=== PATIENT | male | born 1940 | race Caucasian/White ===

== ENCOUNTER 2019-02-22 11:07 | Inpatient (IN) | payer OTHER ==
--- NOTE | 2019-02-22 11:29 | PDOC ---
History of Present Illness - General Chief Complaint: Wound Stated Complaint: SENT BY PCP / PICC LINE Time Seen by Provider: 02/22/19 11:28 - History of Present Illness Initial Comments: 78yo M with PMH of HTN, DM (last hgA1C>11), afib s/p pacemaker presenting sent by his patient access representative for L. great toe wound. Patient has no acute complaints. He first developed the wound on the bottom of his toe after walking outside without shoes about three or four years ago. No bleeding or drainage. He states "I've been trying to take care of it myself." Has had received PICC line and IV antibiotics previously, but no surgery. Reports shortness of breath which is at its baseline and has been going on for a couple years. Denies fevers, chills, or chest pain. Watch Inspector: Dr. Reid Past History - Past Medical History Allergies/Adverse Reactions: Allergies Allergy/AdvReac Type Severity Reaction Status Date / Time morphine Allergy Verified 02/22/19 11:13 Home Medications: Ambulatory Orders Becaplermin [Regranex] 15 gm TP DAILY #1 gel..gram. 02/13/19 Furosemide [Lasix -] 40 mg PO DAILY 02/13/19 Insulin Glargine,Hum.rec.anlog [Toujeo Solostar] 40 units SCJ HS 02/13/19 Metformin HCl [Glucophage] 500 mg PO DAILY 02/13/19 Metoprolol Succinate [Toprol XL -] 50 mg PO DAILY 02/13/19 Potassium Chloride [K-Dur -] 10 meq PO DAILY 02/13/19 Anemia: No Asthma: No Cancer: No Cardiac Disorders: Yes CVA: No COPD: No CHF: No Dementia: No Diabetes: Yes GI Disorders: Yes Disorders: No HTN: Yes Hypercholesterolemia: No Liver Disease: No Seizures: No Thyroid Disease: No - Surgical History Abdominal Surgery: Yes Appendectomy: Yes Cardiac Surgery: Yes Cholecystectomy: No Lung Surgery: No Neurologic Surgery: No Orthopedic Surgery: Yes - Suicide/Smoking/Psychosocial Hx Smoking Status: No Smoking History: Unknown if ever smoked Number of Cigarettes Smoked Daily: 0 Hx Alcohol Use: No Drug/Substance Use Hx: No Substance Use Type: None Hx Substance Use Treatment: No Review of Systems - Review of Systems Comments:: Constitutional: no fever, no chills HEENT: no throat pain, no dysphagia Cardiovascular: no chest pain, no palpitations Respiratory: no cough, +shortness of breath Gastrointestinal: no abdominal pain, no nausea Genitourinary: no dysuria, no frequency Musculoskeletal: no myalgia, no arthralgia Skin: +L. great toe wound, no itching Neurologic: no headache, no weakness *Physical Exam - Vital Signs Last Vital Signs Temp Pulse Resp BP Pulse Ox 98.3 F 68 20 152/84 97 02/22/19 11:16 02/22/19 11:16 02/22/19 11:16 02/22/19 11:16 02/22/19 11:16 - Physical Exam Comments: General: Awake, alert, and fully oriented, in no acute distress Head: No signs of trauma Eyes: EOMI, sclera anicteric ENT: Moist mucus membranes Neck: Normal ROM, supple Lungs: Lungs clear, Normal breath sounds Cardio: Regular rhythm, S1 and S2 present Abdomen: Soft, nontender. No guarding, no rebound, no masses Extremities: Normal range of motion, Distal pulses present, surgical scars present over bilateral knees SKIN: Warm, Dry, normal turgor L. toe lesion: 1.8x1.5cm ulcer on bottom of left great toe without drainage or bleeding; no surrounding fluctuance, erythema, or induration Neurologic: Cranial nerves II through XII grossly intact. Normal speech ED Treatment Course - LABORATORY CBC & Chemistry Diagram: 02/22/19 12:42 02/22/19 12:42 Medical Decision Making - Medical Decision Making 78yo M with PMH of HTN, DM (last hgA1C>11), afib s/p pacemaker presenting sent by his patient access representative for L. great toe wound. Labs, EKG, CXR Radiographs of bilateral feet and L. ankle corresponding with areas of delayed uptake on bone scan Vanz/Zosyn for MRSA and pseudomonal coverage 02/18/19 bone scan: "Multifocal moderate to intense blood pool and intense delayed uptake in the region of the right fifth metatarsal bone, distal tip of the left first toe, left cuboid bone and left lateral malleolus suspicious for osteomyelitis in the right clinical setting. Correlate with patient's symptoms and dedicated x-rays. " 02/22/19 13:34 EKG: rate 105, QTc 481, Afib 02/22/19 15:07 CBC WBC 7.1 K/mm3 (4.0-10.0) 02/22/19 12:42 RBC 6.00 M/mm3 (4.00-5.60) H 02/22/19 12:42 Hgb 17.2 GM/dL (11.7-16.9) H 02/22/19 12:42 Hct 53.5 % (35.4-49) H 02/22/19 12:42 MCV 89.3 fl (80-96) 02/22/19 12:42 MCH 28.6 pg (25.7-33.7) 02/22/19 12:42 MCHC 32.1 g/dl (32.0-35.9) 02/22/19 12:42 RDW 14.9 % (11.9-15.9) 02/22/19 12:42 Plt Count 245 K/MM3 (134-434) D 02/22/19 12:42 MPV 8.0 fl (7.5-11.1) 02/22/19 12:42 Absolute Neuts (auto) 5.2 K/mm3 (1.5-8.0) 02/22/19 12:42 Neutrophils % 72.5 % (42.8-82.8) 02/22/19 12:42 Lymphocytes % 14.3 % (8-40) 02/22/19 12:42 Monocytes % 9.6 % (3.8-10.2) 02/22/19 12:42 Eosinophils % 2.8 % (0-4.5) 02/22/19 12:42 Basophils % 0.8 % (0-2.0) 02/22/19 12:42 Nucleated RBC % 0 % (0-0) 02/22/19 12:42 ESR 13 mm/hr (0-20) 02/22/19 12:42 No leukocytosis Hgb is elevated ESR nl CMP Sodium 136 mmol/L (136-145) 02/22/19 12:42 Potassium 3.7 mmol/L (3.5-5.1) 02/22/19 12:42 Chloride 100 mmol/L (98-107) 02/22/19 12:42 Carbon Dioxide 26 mmol/L (21-32) 02/22/19 12:42 Anion Gap 9 MMOL/L (8-16) 02/22/19 12:42 BUN 25 mg/dL (7-18) H 02/22/19 12:42 Creatinine 1.5 mg/dL (0.55-1.3) H 02/22/19 12:42 Est GFR (CKD-EPI)AfAm 51.31 02/22/19 12:42 Est GFR (CKD-EPI)NonAf 44.27 02/22/19 12:42 Random Glucose 220 mg/dL (74-106) H 02/22/19 12:42 Calcium 8.8 mg/dL (8.5-10.1) 02/22/19 12:42 Total Bilirubin 0.7 mg/dL (0.2-1) 02/22/19 12:42 AST 33 U/L (15-37) 02/22/19 12:42 ALT 42 U/L (13-61) 02/22/19 12:42 Alkaline Phosphatase 131 U/L (45-117) H 02/22/19 12:42 C-Reactive Protein 0.6 MG/DL (0.00-0.3) H 02/22/19 12:42 Total Protein 8.3 g/dl (6.4-8.2) H 02/22/19 12:42 Albumin 3.3 g/dl (3.4-5.0) L 02/22/19 12:42 Elevated BUN and Cr CRP elevated CXR: "A single apical lordotic view reveals a large heart, unfolded aorta, pacemaker, sternal sutures and valve replacement. The lungs are clear. The angles are sharp. The soft tissues are intact. An acute process is not seen. Since 01/29/2012 there is a slightly larger heart. Correlation recommended. " L. Foot/ankle: "The ankle reveals swelling, arthritic changes but no sign of fracture or subluxation no sign of blastic or lytic changes. There may be an old posttraumatic change by the lateral aspect of the distal tibial shaft. 3 views of the left foot reveal osteoarthritic changes with bunion formation by the first MTP joint and other arthritic changes in the toes. There is suggestion of an old fracture deformity of fifth metatarsal with periosteal focal thickening. Blastic or lytic changes are not seen. There is minimal calcaneal spurring. Swelling, foreign body or soft tissue is not appreciated. If symptoms persist or mortise still concerned about osteomyelitis, a 3-phase bone scan or MR may be of help. " R. Foot: "3 views of the right foot reveal extensive osteoarthritic changes with bunion formation by the first MTP joint and angulated first, second and third toes. There are other arthritic changes. Calcaneal spurring is minimal. Blastic or lytic changes are not seen involving the fifth metatarsal. In one view, there may be some cystic changes at the base of the third and fourth metatarsals. There is no sign of swelling, foreign body or soft tissue air. If one is concerned about osteomyelitis, three-phase bone scan or MR may help " Discussed case with Dr. Johnson who accepted patient for admission under Dr. Rincon 02/22/19 15:32 *DC/Admit/Observation/Transfer Diagnosis at time of Disposition: Diabetic foot ulcer Qualifiers: Diabetic foot ulcer location: toe Diabetes mellitus type: type 2 Laterality: left - Discharge Dispostion Condition at time of disposition: Guarded Decision to Admit order: Yes - Referrals - Patient Instructions - Post Discharge Activity
[2019-02-22] MEDS ORDERED: VANCOMYCIN 1,000 MG in DEXTROSE 5%-WATER - 250 ML IVPB ONE (12:23)
[2019-02-22] MEDS ORDERED: PIPERACILLIN/TAZOB 4.5 GM 4.5 GM in DEXTROSE 5%-WATER 100 ML IVPB ONE (12:23)
[2019-02-22] MEDS ORDERED: VANCOMYCIN 1 GRAM (PRE-DOCKED) 1,000 MG/250 ML BAG IVPB ONE ×2 (12:53)
[2019-02-22] MEDS ORDERED: PIPERACILLIN/TAZOB 4.5 GM 4.5 GM/100 ML BAG IVPB ONE (12:53)
[2019-02-22 12:59] LABS: BASO % 0.8 % (0-2.0); EOS % 2.8 % (0-4.5); HEMATOCRIT 53.5 % (35.4-49); HEMOGLOBIN 17.2 GM/dL (11.7-16.9); LYMPH % 14.3 % (8-40); MCH 28.6 pg (25.7-33.7); MCHC 32.1 g/dl (32.0-35.9); MEAN CELL VOLUME 89.3 fl (80-96); MONO % 9.6 % (3.8-10.2); NEUT % 72.5 % (42.8-82.8); PLATELET COUNT 245 K/MM3 (134-434); RDW 14.9 % (11.9-15.9); WHITE BLOOD COUNT 7.1 K/mm3 (4.0-10.0)
[2019-02-22 13:13] LABS: INR 1.07 (0.83-1.09); PROTHROMBIN TIME (PATIENT) 12.6 SEC (9.7-13.0)
--- NOTE | 2019-02-22 13:14 | PDOC ---
Documentation entered by Miryam Mayberry SCRIBE, acting as scribe for Amelia Schafer MD. Amelia Schafer MD: This documentation has been prepared by the christoferibe, Miryam Mayberry SCRIBE, under my direction and personally reviewed by me in its entirety. I confirm that the documentation accurately reflects all work, treatment, procedures, and medical decision making performed by me. Attending Attestation - Resident Resident Name: Amelia Phelan - ED Attending Attestation I have performed the following: I have examined & evaluated the patient, The case was reviewed & discussed with the resident, I agree w/resident's findings & plan, Exceptions are as noted - HPI HPI: 02/22/19 12:48 The patient is a 78-year-old male with a past medical history significant for HTN, and DM was sent to the emergency department by Dr. Reid for evaluation for left great toe wound. The patient reports about 3 years ago, he stepped outside without his shoes, at where he sustained a wound to his great toe. The patient reports he didnt follow up till about 2 weeks ago, was seen at PCPs officer, who referred the patient to Dr. Reid office. The patient was seen at Dr. Hung office recently. The patient had a bone scan done on 02/18, which was significant for delayed reuptake. The patient was seen at Dr. Hung officer again 02/21, where he was instructed to follow up at the ER for IV abx and PICC line. The patients hgba1c was noted to be 11.9. Denies pustulant draining. The patient reports an additional concern of shortness of breath thats chronic in nature. Denies chest pain or worsening shortness of breath. Allergies: morphine Surgical history: The patient has a history of abdominal surgery, Cardiac surgery, orthopedic surgery an appendectomy. Social history: No alcohol or recreational drug use reported. - Physicial Exam PE: GENERAL: Awake, alert, and fully oriented, in no acute distress HEAD: No signs of trauma EYES: PERRLA, EOMI, sclera anicteric, conjunctiva clear ENT: Auricles normal inspection, hearing grossly normal, nares patent, oropharynx clear without exudates. Moist mucosa NECK: Normal ROM, supple, no lymphadenopathy, JVD, or masses LUNGS: Breath sounds equal, clear to auscultation bilaterally. No wheezes, and no crackles HEART: Regular rate and rhythm, normal S1 and S2, no murmurs, rubs or gallops ABDOMEN: Soft, nontender, normoactive bowel sounds. No guarding, no rebound. No masses EXTREMITIES: L great toe with 1.8cm x 1.5cm open wound, no active drainage, surrounded with devitalized tissue. Remainder of extremities with normal range of motion, no edema. No clubbing or cyanosis. No cords, erythema, or tenderness NEUROLOGICAL: Cranial nerves II through XII grossly intact. Normal speech, normal gait. Motor and sensation intact SKIN: Warm, Dry, normal turgor, no rashes or lesions noted. - Medical Decision Making Pt with DFU to the L great toe, will require IV abx for osteo as per notes from Dr. Reid. Will start yuliet and jeremy in ED.
[2019-02-22 13:18] LABS: ALBUMIN 3.3 g/dl (3.4-5.0); BILIRUBIN,TOTAL 0.7 mg/dL (0.2-1); CALCIUM 8.8 mg/dL (8.5-10.1); CREATININE 1.5 mg/dL (0.55-1.3); POTASSIUM 3.7 mmol/L (3.5-5.1); TOT PROT 8.3 g/dl (6.4-8.2)
[2019-02-22] MEDS ORDERED: amLODIPine BESYLATE 5 MG TABLET (FP) PO ONE (17:02)
[2019-02-22] MEDS ORDERED: amLODIPine BESYLATE 5 MG TABLET (FP) ONE (17:08)
--- NOTE | 2019-02-22 17:09 | HP ---
CHIEF COMPLAINT: diabetic foot ulcer with osteo of left great toe PCP:dr ken HISTORY OF PRESENT ILLNESS: 78yo M with PMH of HTN, DM (last hgA1C 8.4), afib s/ p pacemaker presenting sent by his tunnel elastic operator zigzag for L. great toe wound. Patient has no acute complaints. He first developed the wound on the bottom of his toe after walking outside without shoes about three or four years ago and got iV antibiotics through pic line after that( placed in [facility]). Initially his wound got healed but it opened up again about 1 year ago and he didnt tell anyone and started taking care of it by himself. Denies bleeding or drainage. Denies shortness of breath, chest pain, palpitations, nausea, vomiting, lightheadedness, dizziness ER course was notable for: (1)cbc, cmp, crp esr (2) (3) Recent Travel: no PAST MEDICAL HISTORY: as above PAST SURGICAL HISTORY: ? CABG, pacemaker, valve replacement, laparotomy, ventral hernia repair, removal of mesh because of infection , appendectomy, b/l knee replacement Social History: Smoking: occasionally but quit 30 year ago Alcohol:no Drugs: no Family History: not relevant Allergies morphine Allergy (Verified 02/22/19 11:13) HOME MEDICATIONS: Home Medications Medication Instructions Recorded Becaplermin [Regranex] 15 gm TP DAILY #1 gel..gram. 02/13/19 Furosemide [Lasix -] 40 mg PO DAILY 02/13/19 Insulin Glargine,Hum.rec.anlog 40 units [facility] 02/13/19 [Josep Goode] Metformin HCl [Glucophage] 500 mg PO DAILY 02/13/19 Metoprolol Succinate [Toprol XL -] 50 mg PO DAILY 02/13/19 Potassium Chloride [K-Dur -] 10 meq PO DAILY 02/13/19 REVIEW OF SYSTEMS CONSTITUTIONAL: Absent: fever, chills, diaphoresis, generalized weakness, malaise, loss of appetite, weight change HEENT: Absent: rhinorrhea, nasal congestion, throat pain, throat swelling, difficulty swallowing, mouth swelling, ear pain, eye pain, visual changes CARDIOVASCULAR: Absent: chest pain, syncope, palpitations, irregular heart rate, lightheadedness , peripheral edema RESPIRATORY: Absent: cough, shortness of breath, dyspnea with exertion, orthopnea, wheezing, stridor, hemoptysis GASTROINTESTINAL: Absent: abdominal pain, abdominal distension, nausea, vomiting, diarrhea, constipation, melena, hematochezia GENITOURINARY: Absent: dysuria, frequency, urgency, hesitancy, hematuria, flank pain, genital pain MUSCULOSKELETAL: Absent: myalgia, arthralgia, joint swelling, back pain, neck pain SKIN: Absent: rash, itching, pallor HEMATOLOGIC/IMMUNOLOGIC: Absent: easy bleeding, easy bruising, lymphadenopathy, frequent infections ENDOCRINE: Absent: unexplained weight gain, unexplained weight loss, heat intolerance, cold intolerance NEUROLOGIC: Absent: headache, focal weakness or paresthesias, dizziness, unsteady gait, seizure, mental status changes, bladder or bowel incontinence PSYCHIATRIC: Absent: anxiety, depression, suicidal or homicidal ideation, hallucinations. PHYSICAL EXAMINATION Vital Signs - 24 hr 02/22/19 02/22/19 02/22/19 11:16 16:11 16:45 Temperature 98.3 F Pulse Rate 68 Pulse Rate [ 74 Radial] Respiratory 20 18 Rate Blood Pressure 152/84 Blood Pressure 150/107 H [Left Arm] Blood Pressure 150/127 H [Right Arm] O2 Sat by Pulse 97 96 Oximetry (%) GENERAL: Awake, alert, and fully oriented, in no acute distress. HEAD: Normal with no signs of trauma. EYES: Pupils equal, round and reactive to light, extraocular movements intact, EARS, NOSE, THROAT: Ears normal, nares patent, oropharynx clear without exudates. Moist mucous membranes. NECK: Normal range of motion, supple without lymphadenopathy, JVD, or masses. LUNGS: Breath sounds equal, clear to auscultation bilaterally. No wheezes, and no crackles. No accessory muscle use. mid line scar HEART: Regular rate and rhythm, normal S1 and S2 ABDOMEN: Soft, nontender, not distended, normoactive bowel sounds, no guarding, no rebound, no masses. midline scar MUSCULOSKELETAL: Normal range of motion at all joints. No bony deformities or tenderness. No CVA tenderness. UPPER EXTREMITIES: 2+ pulses, warm, well-perfused. No cyanosis. No clubbing. No peripheral edema. LOWER EXTREMITIES: 2+ pulses, warm, well-perfused. No calf tenderness. discoloration from b/l varicose vein NEUROLOGICAL: Cranial nerves II-XII intact. Normal speech. Normal gait. PSYCHIATRIC: Cooperative. Good eye contact. SKIN: Warm, dry, Laboratory Results - last 24 hr 02/22/19 02/22/19 02/22/19 12:30 12:42 12:42 WBC 7.1 RBC 6.00 H Hgb 17.2 H Hct 53.5 H MCV 89.3 MCH 28.6 MCHC 32.1 RDW 14.9 Plt Count 245 D MPV 8.0 Absolute Neuts (auto) 5.2 Neutrophils % 72.5 Lymphocytes % 14.3 Monocytes % 9.6 Eosinophils % 2.8 Basophils % 0.8 Nucleated RBC % 0 ESR PT with INR 12.60 INR 1.07 PTT (Actin FS) 36.0 Sodium 136 Potassium 3.7 Chloride 100 Carbon Dioxide 26 Anion Gap 9 BUN 25 H Creatinine 1.5 H Est GFR (CKD-EPI)AfAm 51.31 Est GFR (CKD-EPI)NonAf 44.27 Random Glucose 220 H Calcium 8.8 Total Bilirubin 0.7 AST 33 ALT 42 Alkaline Phosphatase 131 H C-Reactive Protein Total Protein 8.3 H Albumin 3.3 L 02/22/19 02/22/19 12:42 12:42 WBC RBC Hgb Hct MCV MCH MCHC RDW Plt Count MPV Absolute Neuts (auto) Neutrophils % Lymphocytes % Monocytes % Eosinophils % Basophils % Nucleated RBC % ESR 13 PT with INR INR PTT (Actin FS) Sodium Potassium Chloride Carbon Dioxide Anion Gap BUN Creatinine Est GFR (CKD-EPI)AfAm Est GFR (CKD-EPI)NonAf Random Glucose Calcium Total Bilirubin AST ALT Alkaline Phosphatase C-Reactive Protein 0.6 H Total Protein Albumin ASSESSMENT/PLAN: Osteomyelitis of left great toe bone scan reviewed podiatry consult iD consult crp, esr reviewed zosyn and vanco daily dressing DM continue glargine 40 unit am add novolog sliding scale bgm achs diabetic diet hba1c 8.4 from 02/13/19 HTN continue toprol xl 50 daily given amlodipine 5 mg today for elevated bp if cr remain stable tomorrow we will add katie inhibitor and stop amlodipine ckd vs darlene likely ckd from dm monitor cr avoid nephrotoxic drugs afib s/p pacemaker s/p valve replacement ? cabg rate control with toprol xl 50 we will start him on aspirin once the plan is finalized about bone biopsy. Called dr dominguez [phone]. voicemail left pt list of medicines need to be confirmed. Er called [facility] and as per them he gets mail order. Pt dosent remeber the name or phone number of pharmacy for mail order. I also talked to his son and he is also not aware of it. Pt will ask his son to bring his meds from home fluid: orally allowed electrolyte: repeat in am nutrition diabetic diet dvt pro: heparin sq dispo: med surg Visit type - Emergency Visit Emergency Visit: Yes ED Registration Date: 02/22/19 Care time: The patient presented to the Emergency Department on the above date and was hospitalized for further evaluation of their emergent condition. - New Patient This patient is new to me today: Yes Date on this admission: 02/23/19 - Critical Care Critical Care patient: No
--- NOTE | 2019-02-22 17:15 | PN ---
Teaching Attending Note Name of Resident: Chris Johnson ATTENDING PHYSICIAN STATEMENT I saw and evaluated the patient. I reviewed the resident's note and discussed the case with the resident. I agree with the resident's findings and plan as documented. SUBJECTIVE: CC: sent by crushing mill operator, dr. Reid for L big toe OM . HPI: Dawit 78 y/o man with h/o DM, HTN, Chronic wound on L big toe, Abd hernia repair, b/l Knee replacement, appendectomy, Afib, and valve replacement, ? CABG who presented with after being referred by Photogrammetric Surveyor for treatment of OM. He has a chronic wound in his L big toe which healed after IV abx through PICC ( ? OM) 4 years ago. then a year ago, wound developed agian. he denies any fever or chills. no painin legs or purulent discharge. On 02/[address] Reid's office and had a debridment of the wound with culture growing 5 organisms ( including proteus, MSSA, and E . Faecalis ). He also got a bone scan on 02/18 which showed multifocal delayed euptake ( R fifth metatarsal, tip of L first toe, L cuboid bone, and L Lateral malleolus). In ER: he was given VAnco and zosyn. OBJECTIVE: NAD, pleasant , cooperative HEENT: EOMI, round equal pupils, reactive to light. no facial droop. MMM. CV: RRR, no MRG Lungs: CTAB Abd: soft, NT, ND , NL BS , mid line surgical scar. obese Ext: No edema. varicose veins on legs with discoloration of skin. R 2nd toe overriding Big toe. L big toe with a round plantar ulcer , about 0.75 cm in diameter, 4 mm in depth , elevated rim with thick whitish surrounding skin. No odor. Neuro: EOMI, round equal pupils, reactive to light. no facial droop. tongue at mid line. Strength 5/5 in upper and lower extremities proximally and distally. ASSESSMENT AND PLAN: Dawit 78 y/o man with h/o DM, HTN, Chronic wound on L big toe, Abd hernia repair, b/l Knee replacement, appendectomy, Afib,s/p PPM ,? CABG and valve replacement who presented with after being referred by Photogrammetric Surveyor for treatment of OM. 1- L big toe infected diabetic foot ulcer with OM : Wound was debrided on 02/13 in office. wound cx reviewed. ESR and CRP reviewed, might not be a good indication of absence of OM. MRI can't be done due to PPM - will confirm with Podiatry if a bone bx is to be done before proceeding with Abx - will consult Id for guidance . - received Vanco and zosyn in ER, which covers all the organisms found in wound cx 2- Uncontrolled HTN: He carroll snot remember his meds. - will give a dose of norvasc - start BB ( olf medication per 2012 records) - will confirm meds ( sone to bring bottles ) 3- Possible CKD: unknown base line , but Cr was 1.4 on 02/13 . - will monitor - he takes lasix BID , will give daily for now and assess 4- DM: - cont levemir at home dose 40 Am ( received today ) - SSI - hold po pills 5- Per Chart review: SPEP in 2012 showed M spike for IgG and [place]. Not clear if he followed or got this repeated. - will advise follow up with heme for further w/u 6- Erythrocytosis: unclear etiology. Not a current smoker. No h/o COPD. follow CBC DVT PX: Heparin Sq
[2019-02-22 18:59] VITALS: BMI 34.6
[2019-02-22] MEDS ORDERED: DEXTROSE 5%-WATER 100 ML IVPB ONE (21:07)
[2019-02-22] MEDS ORDERED: PIPERACILLIN/TAZOBACTAM 4.5 GM VIAL IVPB ONE (21:07)
[2019-02-22] MEDS: PIPERACILLIN/TAZOB 4.5 GM 4.5 GM in DEXTROSE 5%-WATER 100 ML IVPB SCH (21:27)
[2019-02-22] MEDS: INSULIN SLIDING SCALE (NOVOLOG) 1 VIAL SQ SCH (21:28)
[2019-02-22] MEDS: HEPARIN NA (PORCINE) 5,000 UNITS/ML 1ML VIAL SQ SCH (21:28)
[2019-02-23] MEDS ORDERED: DEXTROSE 5%-WATER 200 ML IVPB ONE (03:10)
[2019-02-23] MEDS ORDERED: PIPERACILLIN/TAZOBACTAM 4.5 GM VIAL IVPB ONE ×2 (03:10→09:06)
[2019-02-23] MEDS: PIPERACILLIN/TAZOB 4.5 GM 4.5 GM in DEXTROSE 5%-WATER 100 ML IVPB SCH ×4 (03:23→17:21)
[2019-02-23] MEDS: HEPARIN NA (PORCINE) 5,000 UNITS/ML 1ML VIAL SQ SCH ×3 (06:04→21:10)
[2019-02-23] MEDS: INSULIN SLIDING SCALE (NOVOLOG) 1 VIAL SQ SCH ×4 (06:05→21:10)
[2019-02-23] MEDS: INSULIN (LEVEMIR) 100 UNITS/ML UNITS SQ SCH (06:06)
[2019-02-23 06:59] LABS: BASO % 0.6 % (0-2.0); EOS % 4.4 % (0-4.5); HEMATOCRIT 50.9 % (35.4-49); HEMOGLOBIN 16.5 GM/dL (11.7-16.9); LYMPH % 13.9 % (8-40); MCHC 32.5 g/dl (32.0-35.9); MEAN CELL VOLUME 89.3 fl (80-96); MEAN PLT VOLUME 8.1 fl (7.5-11.1); MONO % 11.1 % (3.8-10.2); PLATELET COUNT 216 K/MM3 (134-434); RBC 5.69 M/mm3 (4.00-5.60); RDW 14.8 % (11.9-15.9); WHITE BLOOD COUNT 7.4 K/mm3 (4.0-10.0)
[2019-02-23 07:16] LABS: INR 1.08 (0.83-1.09); PROTHROMBIN TIME (PATIENT) 12.7 SEC (9.7-13.0)
[2019-02-23 07:18] LABS: ALBUMIN 3.2 g/dl (3.4-5.0); BILIRUBIN,TOTAL 1.2 mg/dL (0.2-1); CALCIUM 8.7 mg/dL (8.5-10.1); CREATININE 1.5 mg/dL (0.55-1.3); MAGNESIUM 2.1 mg/dL (1.8-2.4); PHOSPHOROUS 3.8 mg/dL (2.5-4.9); POTASSIUM 3.5 mmol/L (3.5-5.1); TOT PROT 7.8 g/dl (6.4-8.2)
[2019-02-23] MEDS ORDERED: DEXTROSE 5%-WATER 100 ML IVPB ONE (09:06)
[2019-02-23] MEDS: FUROSEMIDE 40 MG TABLET (FP) PO SCH (09:53)
[2019-02-23] MEDS ORDERED: VANCOMYCIN 1 GRAM (PRE-DOCKED) 1,000 MG/250 ML BAG IVPB SCH ×2 (10:00→13:00)
[2019-02-23] MEDS ORDERED: amLODIPine BESYLATE 5 MG TABLET (FP) PO SCH (10:00)
[2019-02-23] MEDS ORDERED: VANCOMYCIN 1 GM in D5W (PRE-DOCKED) 1,000 MG/250 ML IVPB SCH (10:00)
--- NOTE | 2019-02-23 11:10 | CONSULT ---
Consult Consult Specialty:: Podiatry Reason for Consultation:: OM left great toe, poorly controlled diabetes - History Source History Provided By: Patient, Medical Record - Alcohol/Substance Use Hx Alcohol Use: No - Smoking History Smoking history: Unknown if ever smoked Aproximately how many cigarettes per day: 0 Home Medications - Allergies Allergies/Adverse Reactions: Allergies Allergy/AdvReac Type Severity Reaction Status Date / Time morphine Allergy Verified 02/22/19 11:13 - Home Medications Home Medications: Ambulatory Orders Becaplermin [Regranex] 15 gm TP DAILY #1 gel..gram. 02/13/19 Furosemide [Lasix -] 40 mg PO DAILY 02/13/19 Insulin Glargine,Hum.rec.anlog [Toujeo Solostar] 40 units SCJ HS 02/13/19 Metformin HCl [Glucophage] 500 mg PO DAILY 02/13/19 Metoprolol Succinate [Toprol XL -] 50 mg PO DAILY 02/13/19 Potassium Chloride [K-Dur -] 10 meq PO DAILY 02/13/19 Physical Exam Vital Signs: Vital Signs Temperature 97.8 F 02/23/19 09:28 Pulse Rate 97 H 02/23/19 09:28 Respiratory Rate 20 02/23/19 09:28 Blood Pressure 138/91 02/23/19 09:28 O2 Sat by Pulse Oximetry (%) 94 L 02/23/19 09:00 Extremities: Yes: Other (+grade 3 wound left big toe, -drainage, -mal odor, +OM, ) Labs: CBC, BMP 02/23/19 05:30 02/23/19 05:30 Assessment/Plan om left big toe pvd Vascular consult. HBO consult. Patient wants to come to hospital to get his abx. IVABX as per ID. [place] to left foot wound daily. NO tape on skin. Will follow.
--- NOTE | 2019-02-23 11:38 | PN ---
Progress Note (short form) - Note Progress Note: Subjective: No fever or chills . No GARCIA . no pain . ambulating in hallway with no problems Objective: Vital Signs: Last Vital Signs Temp Pulse Resp BP Pulse Ox 97.8 F 97 H 20 138/91 94 L 02/23/19 09:28 02/23/19 09:28 02/23/19 09:28 02/23/19 09:28 02/23/19 09:00 Laboratory Results - last 24 hr 02/22/19 02/22/19 02/22/19 12:30 12:42 12:42 WBC 7.1 RBC 6.00 H Hgb 17.2 H Hct 53.5 H MCV 89.3 MCH 28.6 MCHC 32.1 RDW 14.9 Plt Count 245 D MPV 8.0 Absolute Neuts (auto) 5.2 Neutrophils % 72.5 Lymphocytes % 14.3 Monocytes % 9.6 Eosinophils % 2.8 Basophils % 0.8 Nucleated RBC % 0 ESR PT with INR 12.60 INR 1.07 PTT (Actin FS) 36.0 Sodium 136 Potassium 3.7 Chloride 100 Carbon Dioxide 26 Anion Gap 9 BUN 25 H Creatinine 1.5 H Est GFR (CKD-EPI)AfAm 51.31 Est GFR (CKD-EPI)NonAf 44.27 POC Glucometer Random Glucose 220 H Calcium 8.8 Phosphorus Magnesium Total Bilirubin 0.7 AST 33 ALT 42 Alkaline Phosphatase 131 H C-Reactive Protein Total Protein 8.3 H Albumin 3.3 L 02/22/19 02/22/19 02/22/19 12:42 12:42 21:21 WBC RBC Hgb Hct MCV MCH MCHC RDW Plt Count MPV Absolute Neuts (auto) Neutrophils % Lymphocytes % Monocytes % Eosinophils % Basophils % Nucleated RBC % ESR 13 PT with INR INR PTT (Actin FS) Sodium Potassium Chloride Carbon Dioxide Anion Gap BUN Creatinine Est GFR (CKD-EPI)AfAm Est GFR (CKD-EPI)NonAf POC Glucometer 172 Random Glucose Calcium Phosphorus Magnesium Total Bilirubin AST ALT Alkaline Phosphatase C-Reactive Protein 0.6 H Total Protein Albumin 02/23/19 02/23/19 02/23/19 05:30 05:30 05:30 WBC 7.4 RBC 5.69 H Hgb 16.5 Hct 50.9 H MCV 89.3 MCH 29.0 MCHC 32.5 RDW 14.8 Plt Count 216 MPV 8.1 Absolute Neuts (auto) 5.2 Neutrophils % 70.0 Lymphocytes % 13.9 Monocytes % 11.1 H Eosinophils % 4.4 Basophils % 0.6 Nucleated RBC % 0 ESR PT with INR 12.70 INR 1.08 PTT (Actin FS) Sodium 138 Potassium 3.5 Chloride 101 Carbon Dioxide 29 Anion Gap 8 BUN 24 H Creatinine 1.5 H Est GFR (CKD-EPI)AfAm 51.31 Est GFR (CKD-EPI)NonAf 44.27 POC Glucometer Random Glucose 89 Calcium 8.7 Phosphorus 3.8 Magnesium 2.1 Total Bilirubin 1.2 H AST 35 ALT 39 Alkaline Phosphatase 106 C-Reactive Protein Total Protein 7.8 Albumin 3.2 L 02/23/19 02/23/19 05:59 11:20 WBC RBC Hgb Hct MCV MCH MCHC RDW Plt Count MPV Absolute Neuts (auto) Neutrophils % Lymphocytes % Monocytes % Eosinophils % Basophils % Nucleated RBC % ESR PT with INR INR PTT (Actin FS) Sodium Potassium Chloride Carbon Dioxide Anion Gap BUN Creatinine Est GFR (CKD-EPI)AfAm Est GFR (CKD-EPI)NonAf POC Glucometer 118 180 Random Glucose Calcium Phosphorus Magnesium Total Bilirubin AST ALT Alkaline Phosphatase C-Reactive Protein Total Protein Albumin Physical Exam: NAD, cooperative HEENT: MMM CV: RRR, no MRG Lungs: CTAB Ext: No edema. varicose veins on legs with discoloration of skin. R 2nd toe overriding Big toe. L big toe with a round plantar ulcer, about 0.75 cm in diameter, 4 mm in depth , in the middle of a callus. No odor, no discharge. ASSESSMENT AND PLAN: Pleasant 78 y/o man with h/o DM, HTN, Chronic wound on L big toe, Abd hernia repair, b/l Knee replacement, appendectomy, Afib,s/p PPM ,? CABG and valve replacement who presented with after being referred by Broom Machine Operator for treatment of OM. 1- L big toe infected diabetic foot ulcer with OM : s/p debridment in office . wound cx available - cont vanco and zosyn for now , pending ID consult - d/w Dr. Reid, no bone Bx to be done - will arrange for a PICC line tomorrow for prolonged Abx use - patient wishes to receive his Abx at infusion center - Hyperbaric eval 2- Uncontrolled HTN:meds were confirmed and updated. only on metorpolol at home - cont metoprolol - dc norvasc and add low dose lisinopril. will need BMP in 1 week for renal function and K. - will contact PCP tomorrow , for renal base line and on why ACEI/ARB werenot use ( ? reaction , hyperkalemia) 3- CKD: unknown base line , but Cr was 1.4 on 02/13 . - will monitor - cont home lasix daily 4- DM: - cont levemir at home dose 40 Am - SSI - at DC can resume his metofrmin as his GFR is 44.27 and he was already on it ( [facility] Recs ) 5- SPEP in 2011 showed M spike for IgG and [place]. Not clear if he followed or got this repeated. - will advise follow up with heme for further w/u DVT PX: Heparin Sq Dispo : will plan for PICC and Abx arrangement at Infusion center,pending ID eval . possible dc tomorrow L Visit type - Emergency Visit Emergency Visit: Yes ED Registration Date: 02/22/19 Care time: The patient presented to the Emergency Department on the above date and was hospitalized for further evaluation of their emergent condition. - New Patient This patient is new to me today: No - Critical Care Critical Care patient: No - Discharge Referral Referred to [facility] No
[2019-02-23] MEDS ORDERED: AMPICILLIN NA/SULBACTAM NA 3 GM in SODIUM CHLORIDE 100 ML IVPB SCH (13:30)
--- NOTE | 2019-02-23 13:33 | CON.ID ---
Consult Consult Specialty:: infectious diseses Referred by:: dr roper Reason for Consultation:: osteo of the foot - History of Present Illness Chief Complaint: wound on the left great toe History of Present Illness: 78yo M with PMH of HTN, DM (, afib s/p pacemaker presenting L. great toe wound. Patient has no acute complaints. He first developed the wound on the bottom of his toe after walking outside without shoes about three or four years ago and got iV antibiotics through [facility] Initially his wound got healed but it opened up again about 1 year ago and he didnt tell anyone and started taking care of it by himself. Denies bleeding or drainage. Denies shortness of breath, chest pain, palpitations, nausea, vomiting, lightheadedness, dizziness was worked up on this admission and now has infection with multiple organism as well as osteo - History Source History Provided By: Patient Limitations to Obtaining History: No Limitations - Alcohol/Substance Use Hx Alcohol Use: No - Smoking History Smoking history: Unknown if ever smoked Aproximately how many cigarettes per day: 0 Home Medications - Allergies Allergies/Adverse Reactions: Allergies Allergy/AdvReac Type Severity Reaction Status Date / Time morphine Allergy Verified 02/22/19 11:13 - Home Medications Home Medications: Ambulatory Orders Becaplermin [Regranex] 15 gm TP DAILY #1 gel..gram. 02/13/19 Furosemide [Lasix -] 40 mg PO DAILY 02/13/19 Insulin Glargine,Hum.rec.anlog [Toujeo Solostar] 40 units SCJ HS 02/13/19 Metformin HCl [Glucophage] 500 mg PO DAILY 02/13/19 Metoprolol Succinate [Toprol XL -] 50 mg PO DAILY 02/13/19 Potassium Chloride [K-Dur -] 10 meq PO DAILY 02/13/19 Review of Systems - Review of Systems Constitutional: reports: No Symptoms Eyes: reports: No Symptoms HENT: reports: No Symptoms Neck: reports: No Symptoms Cardiovascular: reports: No Symptoms Respiratory: reports: No Symptoms Gastrointestinal: reports: No Symptoms Genitourinary: reports: No Symptoms Musculoskeletal: reports: No Symptoms Integumentary: reports: Lesions Neurological: reports: No Symptoms Endocrine: reports: No Symptoms Hematology/Lymphatic: reports: No Symptoms Psychiatric: reports: No Symptoms Physical Exam Vital Signs: Vital Signs Temperature 97.6 F 02/23/19 13:16 Pulse Rate 82 02/23/19 13:16 Respiratory Rate 20 02/23/19 13:16 Blood Pressure 143/62 02/23/19 13:16 O2 Sat by Pulse Oximetry (%) 94 L 02/23/19 09:00 Constitutional: Yes: Well Nourished, No Distress, Calm Neck: Yes: Supple, Trachea Midline Cardiovascular: Yes: Regular Rate and Rhythm Respiratory: Yes: Regular, CTA Bilaterally Gastrointestinal: Yes: Normal Bowel Sounds, Soft Musculoskeletal: Yes: Other Extremities: Yes: Other Wound/Incision: Yes: Other (wound non healing of left great toe) Neurological: Yes: Alert, Oriented Psychiatric: Yes: Alert, Oriented Labs: CBC, BMP 02/23/19 05:30 02/23/19 05:30 Imaging - Results Chest X-ray: Report Reviewed, Image Reviewed Other: Report Reviewed, Image Reviewed (nuclear scan seen) Assessment/Plan ASSESSMENT/PLAN: Osteomyelitis of left great toe DM HTN ckd afib plan i am going to start patient on unasyn the problems is this has become chronic if once a day regimen then we will have to to use 2 abx ertapenam and vanco will d/w the team
[2019-02-23] MEDS: COLLAGENASE CLOSTRIDIUM HIST. 30 GRAMS TUBE TP SCH (15:07)
--- NOTE | 2019-02-23 15:14 | EKG ---
Test Reason : Blood Pressure : / mmHG Vent. Rate : 105 BPM Atrial Rate : 117 BPM P-R Int : 000 ms QRS Dur : 086 ms QT Int : 364 ms P-R-T Axes : 000 022 006 degrees QTc Int : 481 ms ATRIAL FIBRILLATION WITH RAPID VENTRICULAR RESPONSE WITH PREMATURE VENTRICULAR OR ABERRANTLY CONDUCTED COMPLEXES NONSPECIFIC T WAVE ABNORMALITY ABNORMAL ECG NO PREVIOUS ECGS AVAILABLE Confirmed by NEFTALI SHOEMAKER MD ([id number]) on 02/23/2019 3:14:12 PM Referred By: Confirmed By:NEFTALI SHOEMAKER MD
[2019-02-23] MEDS ORDERED: PT OWN MED DRAWER 7, Y5N ONE ×2 (16:42→19:00)
[2019-02-23] MEDS: AMPICILLIN NA/SULBACTAM NA 3 GM in SODIUM CHLORIDE 100 ML IVPB SCH (17:04)
[2019-02-24] MEDS ORDERED: PT OWN MED DRAWER 7, Y5N ONE (01:23)
[2019-02-24] MEDS: AMPICILLIN NA/SULBACTAM NA 3 GM in SODIUM CHLORIDE 100 ML IVPB SCH ×2 (01:58→10:27)
[2019-02-24] MEDS: HEPARIN NA (PORCINE) 5,000 UNITS/ML 1ML VIAL SQ SCH (06:51)
[2019-02-24] MEDS: INSULIN (LEVEMIR) 100 UNITS/ML UNITS SQ SCH (06:51)
[2019-02-24] MEDS: INSULIN SLIDING SCALE (NOVOLOG) 1 VIAL SQ SCH ×2 (06:52→12:41)
[2019-02-24] MEDS ORDERED: INSULIN (NOVOLOG) ASPART 100 UNITS/ML 10ML VIAL ONE (07:06)
--- NOTE | 2019-02-24 07:25 | CONSULT ---
- Consultation REQUESTING PROVIDER: Pankaj Barboza CONSULT REQUEST: We have been asked to surgically evaluate this patient for ( specify). PCP: Ines Rincon HPI: Found patient ambulating hallways this morning unassisted. Called to abhijeetkaity 78yo male w/ PMHx as noted below. Comes to [facility] ED for further evaluation of his left great toe wound. Patient states the wound has been there for almost four years. Started after he was walking around barefoot. Initially, had a PICC line and was on IV ABX for six weeks. States it got a little better and closed over time. About one year ago he noticed it started to reoccur. Attempted to care for wound by himself and never sought medical attention. Per notes, patient had a bone scan done on 02/18/19, which was significant for delayed re-uptake. The patient was seen at Dr. Hung office 02/21/19, where he was instructed to follow up at the ER for IV abx and PICC line placement. Denies n/v/f/c, CP, SOB, parasthesisas, numbness or tingling to his LE. PMHx: HTN, DM, Afib, Left foot wound PSHx: ? CABG, Pacemaker, valve replacement, laparotomy, ventral hernia repair, removal of mesh because of infection , appendectomy, b/l knee replacement Home Meds Becaplermin 15 gm topical daily Lasix 40 mg daily Insulin Glargine,Hum.rec.anlog 40 units SQ HS Metformin HCl 500 mg daily Metoprolol Succinate 50 mg daily K-Dur 10 meq daily Allergies: Morphine ROS: All systems reviewed and considered negative except for what's contained in HPI PE: GEN: NAD HEENT: EOMI, PERRL CV: RRR Lungs: CTAB Abd: Obese habitus. Midline surgical scar well healed. Soft, NT, ND Ext: No edema. + Varicose veins, venous stasis changes bilat. R 2nd toe overriding Big toe. L big toe with a round plantar ulcer , about 0.75 cm in diameter, 4 mm in depth, periwound w/ callous skin. No odor or drainage. No signs of infection. + DP & PT bilat Last Vital Signs Temp Pulse Resp BP Pulse Ox 97.8 F 81 20 118/90 96 02/24/19 05:48 02/24/19 05:48 02/24/19 05:48 02/24/19 05:48 02/23/19 21:00 CBC, BMP 02/23/19 05:30 02/23/19 05:30 INR, PTT INR 1.08 (0.83-1.09) 02/23/19 05:30 Problem List - Problems (1) Diabetic foot ulcer Assessment/Plan: 78 yo male with chronic (reoccurring) wound to his left great toe. Tight gylcemic control ID --> IV ABX PICC HBO Therapy as out-patient No Vascular or Wound Care intervention Wound care as per Podiatry Above plan discussed with my attending and agrees. On behalf of Dr. Barboza, thank you for the opportunity to participate in your patient's care. Code(s): E11.621 - TYPE 2 DIABETES MELLITUS WITH FOOT ULCER; L97.509 - NON- PRESSURE CHRONIC ULCER OTH PRT UNSP FOOT W UNSP SEVERITY Qualifiers: Diabetic foot ulcer location: toe Diabetes mellitus type: type 2 Laterality: left (2) PVD (peripheral vascular disease) Code(s): I73.9 - PERIPHERAL VASCULAR DISEASE, UNSPECIFIED Visit type - Case Type Case Type: ED Admission - New patient This patient is new to me today: Yes Date on this admission: 02/24/19
--- NOTE | 2019-02-24 09:46 | PN ---
Progress Note, Physician History of Present Illness: stable - Current Medication List Current Medications: Active Medications Collagenase (Santyl -) 1 applic TP DAILY [facility]; Protocol Last Admin: 02/23/19 15:07 Dose: 1 applic Furosemide (Lasix -) 40 mg PO DAILY [facility] Last Admin: 02/23/19 09:53 Dose: 40 mg Heparin Sodium (Porcine) (Heparin -) 5,000 unit SQ TID [facility] Last Admin: 02/24/19 06:51 Dose: 5,000 unit Ampicillin Sodium/Sulbactam (Sodium 3 gm/ Sodium Chloride) 100 mls @ 200 mls/ hr IVPB Q8H-IV [facility] Last Admin: 02/24/19 01:58 Dose: 200 mls/hr Insulin Aspart (Novolog Vial Sliding Scale -) 1 vial SQ ACHS [facility]; Protocol Last Admin: 02/24/19 06:52 Dose: Not Given Insulin Detemir (Levemir Vial) 40 units SQ AM [facility] Last Admin: 02/24/19 06:51 Dose: 20 units Lisinopril (Prinivil) 5 mg PO DAILY [facility] Metoprolol Succinate (Toprol Xl -) 50 mg PO DAILY [facility] Last Admin: 02/23/19 09:53 Dose: 50 mg - Objective Vital Signs: Vital Signs Temperature 97.8 F 02/24/19 05:48 Pulse Rate 81 02/24/19 05:48 Respiratory Rate 20 02/24/19 05:48 Blood Pressure 118/90 02/24/19 05:48 O2 Sat by Pulse Oximetry (%) 96 02/23/19 21:00 Constitutional: Yes: No Distress, Calm Cardiovascular: Yes: Regular Rate and Rhythm Respiratory: Yes: Regular, CTA Bilaterally Gastrointestinal: Yes: Normal Bowel Sounds, Soft Musculoskeletal: Yes: WNL Extremities: Yes: Other Wound/Incision: Yes: Dressing Dry and Intact Neurological: Yes: Alert, Oriented Psychiatric: Yes: Alert, Oriented Labs: CBC, BMP 02/23/19 05:30 02/23/19 05:30 INR, PTT INR 1.08 (0.83-1.09) 02/23/19 05:30 Assessment/Plan ASSESSMENT/PLAN: Osteomyelitis of left great toe DM HTN ckd afib plan unasyn 3g every 8 hours for 6 weeks wound care
[2019-02-24] MEDS ORDERED: LISINOPRIL 5 MG TABLET (FP) PO SCH (10:00)
[2019-02-24] MEDS: COLLAGENASE CLOSTRIDIUM HIST. 30 GRAMS TUBE TP SCH (10:28)
[2019-02-24] MEDS: FUROSEMIDE 40 MG TABLET (FP) PO SCH (10:28)
--- NOTE | 2019-02-24 13:14 | PN ---
Progress Note (short form) - Note Progress Note: Patient going home. +improving wound om hbo to be started once pacemaker cleared. santyl to wound. fu in [facility]. continue post op shoe. pt coming to hospital for ivabx outpatient.
--- NOTE | 2019-02-24 13:22 | DS ---
Physical Exam: SUBJECTIVE: Patient seen and examined at bedside. No acute events overnight. Went for PICC line earlier today. OBJECTIVE: Vital Signs Period Temp Pulse Resp BP Sys/Jang Pulse Ox Last 24 Hr 97.8 F-98.5 F 81-95 18-20 109-139/63-90 96 PHYSICAL EXAM GENERAL: AAOx3 NAD HEAD: Normal with no signs of trauma. EYES: EOMI, Sclera Clear NECK: Trachea midline, full range of motion, supple. LUNGS: CTAB HEART: RRR S1S2 ABDOMEN: soft NDNT EXTREMITIES:Varicose veins left lower extremity. Nonoozing, clean ulcer plantar aspect left foot. NEUROLOGICAL: Cranial nerves II through XII grossly intact. Normal speech, gait not observed. 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 great toe wound. Pt underwent a bone scan on 02/18/19 which was suspicious for osteomyelitis. Pt was started on vancomycin and zosyn upon admission. Infectious Disease consult was placed and recommended pt be discharged on Unasyn 3g every 8 hours for 6 weeks. Pt underwent PICC placement and discharged. Date of Discharge: 02/24/19 Minutes to complete discharge: 35 Discharge Summary Reason For Visit: DIABETIC FOOT ULCER Current Active Problems Osteomyelitis (Acute) Diabetes mellitus (Chronic) Diabetic foot ulcer (Chronic) Hypertension (Chronic) PVD (peripheral vascular disease) (Chronic) Condition: Improved - Instructions Diet, Activity, Other Instructions: You were admitted for an infection in the bone of your big toe called Osteomyelitis. You should resume taking all of your home medications as prescribed. We are sending you home with an IV antibiotic to continue to fight your infection. This medication is called Unasyn and is to be given every 8 hours for 6 weeks. a company will come to your home and teach you how to give yourself the medication. While on this medication, you should get your blood checked (complete blood count and complete metabolic profile) every week. You can get a prescription from your doctor for these blood tests. send results to Please start taking Lisinopril 5mg daily to help control your blood pressure. Please follow up with Dr. Gonzalez within 1 week after discharge. Please follow up with your primary care physician within 1 week of discharge. Please follow up with your packaging materials inspector, Dr. Reid, within 1 week of discharge. During your hospital stay, you were found to have an abnormality in your blood called an "M spike". While this is not an urgent medical problem, we also suggest that you follow up with a blood doctor to further investigate this. We have included information for Dr. Maddox in your discharge paperwork. please call to make an appointment. If you begin to experience chest pain, shortness of breath, worsening fever or chills or if any of your symptoms get worse, please call your doctor or come to the emergency department. Referrals: Joao Gonzalez MD [Staff Physician] - 1 Week Jason Maddox MD [Staff Physician] - 3 Weeks Corey Reid DPM [Staff Physician] - 1 Week Disposition: VNS/HOME HEALTH CARE - Home Medications Comprehensive Discharge Medication List: Ambulatory Orders Becaplermin [Regranex] 15 gm TP DAILY #1 gel..gram. 02/13/19 Furosemide [Lasix -] 40 mg PO DAILY 02/13/19 Metformin HCl [Glucophage] 500 mg PO DAILY 02/13/19 Metoprolol Succinate [Toprol XL -] 50 mg PO DAILY 02/13/19 Potassium Chloride [K-Dur -] 10 meq PO DAILY 02/13/19 Ampicillin Na/Sulbactam Na [Unasyn -] 3 gm IVPB Q8H-IV 42 Days vial 02/24/19 Insulin Glargine,Hum.rec.anlog [Lantus] 40 unit SQ AM #1 vial 02/24/19 Lisinopril [Prinivil] 5 mg PO DAILY #30 tablet 02/24/19 Miscellaneous Drug Not In Syst [Outpatient Lab Test] 1 each ASDIR #1 misc 12/10 This patient is new to me today: Yes Date on this admission: 02/24/19 Emergency Visit: Yes ED Registration Date: 02/22/19 Care time: The patient presented to the Emergency Department on the above date and was hospitalized for further evaluation of their emergent condition. Critical Care patient: No - Discharge Referral Referred to [facility] No
[2019-02-24 14:08] VITALS: BP 132/91; PULSE 81; TEMP 97.8
--- NOTE | 2019-02-24 16:58 | PN ---
Teaching Attending Note Name of Resident: Gume Koehler ATTENDING PHYSICIAN STATEMENT I saw and evaluated the patient. I reviewed the resident's note and discussed the case with the resident. I agree with the resident's findings and plan as documented. SUBJECTIVE: No fever or chills . no pain. OBJECTIVE: NAD HEENT: MMM CV: RRR, no MRG Lungs: CTAB Ext: No edema. varicose veins on legs with discoloration of skin. L big toe with a round plantar ulcer, about 0.75 cm in diameter, 4 mm in depth , in the middle of a callus. No odor, no discharge. ASSESSMENT AND PLAN: Pleasant 78 y/o man with h/o DM, HTN, Chronic wound on L big toe, Abd hernia repair, b/l Knee replacement, appendectomy, Afib,s/p PPM ,? CABG and valve replacement who presented with after being referred by Cable Operator for treatment of OM. 1- L big toe infected diabetic foot ulcer with OM: s/p debridment in office . -Dc home on unayn x 6 weeks 2- Uncontrolled HTN: cont metoprolol. cont lisinopril ( started here ) . bmp in 1 week 3- CKD: - cont home lasix daily 4- DM: - cont levemir at home dose 40 Am - SSI 5- SPEP in 2011 showed M spike for IgG and [place]. - will advise follow up with heme for further w/u DC home with VNS. Tunnel cath placed. Home infusion arranged
== END 2019-02-24 15:26 | disposition home health service (06) | DRG 638 ==
LOC: JER 11:07 → JERBED 15:33 → J7W 18:24
PROVIDERS: ADMIT Internal Medicine; ATTEND Internal Medicine
PROC: 05HM33Z Insertion of Infusion Device into Right Internal Jugular Vein, Percutaneous Approach (ICD-10-PCS; principal; 2019-02-24)
PROC: B513ZZA Fluoroscopy of Right Jugular Veins, Guidance (ICD-10-PCS; 2019-02-24)
DX: E11.621 Type 2 diabetes mellitus with foot ulcer (principal); M86.9 Osteomyelitis, unspecified; L97.529 Non-pressure chronic ulcer of other part of left foot with unspecified severity; I12.9 Hypertensive chronic kidney disease with stage 1 through stage 4 chronic kidney disease, or unspecified chronic kidney disease; E11.69 Type 2 diabetes mellitus with other specified complication; E11.22 Type 2 diabetes mellitus with diabetic chronic kidney disease; N18.9 Chronic kidney disease, unspecified; I48.91 Unspecified atrial fibrillation; D75.1 Secondary polycythemia; Z95.0 Presence of cardiac pacemaker; Z79.84 Long term (current) use of oral hypoglycemic drugs; Z79.4 Long term (current) use of insulin; E78.5 Hyperlipidemia, unspecified; E66.9 Obesity, unspecified; Z68.34 Body mass index [BMI] 34.0-34.9, adult; F17.210 Nicotine dependence, cigarettes, uncomplicated; Z96.653 Presence of artificial knee joint, bilateral; I73.9 Peripheral vascular disease, unspecified; I83.92 Asymptomatic varicose veins of left lower extremity
CPT/HCPCS: 36415; 36558; 71045-TC-FY; 73610-TC-LT-FY; 73630-TC-LT; 73630-TC-RT-FY; 77001-TC-FY; 80053; 82962; 83735; 84100; 85025; 85610; 85651; 85730; 86140; 87040; 93005; 93010; 99282-25; C1751; J1644

== ENCOUNTER 2019-03-04 18:01 | Emergency (ER) | payer OTHER | END 2019-03-04 22:28 | disposition home or self-care (01) | LOC: JER 18:01 ==

== ENCOUNTER 2019-03-11 04:39 | Inpatient (IN) | payer OTHER ==
--- NOTE | 2019-03-11 04:52 | PDOC ---
History of Present Illness - General Stated Complaint: SOB Time Seen by Provider: 03/11/19 04:52 History Source: Patient - History of Present Illness Initial Comments: 03/11/19 04:59 The patient is a 78 year old male with a PMH of HTN, IDDM, Osteomyelitis ( currently recieving PICC line antibiotics + hyperbaric oxygen therapy) and AFib (not on A/C)who presents to the ED c/o cold sweat. Patient states he woke up from sleep with cold sweats and decided to come to the ED. Notes he hadn't taken his insulin since day before yesterday because he ran out of the medication. Also notes worsening shortness of breath on exertion over the last 2-3 months. No orthopnea, paroxysmal nocturnal dyspnea. States he took CXR at [facility] earlier this week as has an appointment scheduled with a scientific editor for this coming week. 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 Allergy: Morphine Surgical: Hernia Repair, Valve Replacement PMD: Dr. Rebollar As per EMR, patient evaluated in our ED 03/04/2019 for Elevated BP 2/2 to medication non-adherence. Patient discharged home. Past History - Past Medical History Allergies/Adverse Reactions: Allergies Allergy/AdvReac Type Severity Reaction Status Date / Time morphine Allergy Verified 03/11/19 04:48 Home Medications: Ambulatory Orders Furosemide [Lasix -] 40 mg PO DAILY 02/13/19 Metformin HCl [Glucophage] 500 mg PO DAILY 02/13/19 Metoprolol Succinate [Toprol XL -] 50 mg PO DAILY 02/13/19 Potassium Chloride [K-Dur -] 10 meq PO DAILY 02/13/19 Ampicillin Na/Sulbactam Na [Unasyn -] 3 gm IVPB Q8H-IV 42 Days vial 02/24/19 Insulin Glargine,Hum.rec.anlog [Lantus] 40 unit SQ AM #1 vial 02/24/19 Lisinopril [Prinivil] 5 mg PO DAILY #30 tablet 02/24/19 Becaplermin [Regranex] 15 gm TP DAILY #1 gel..gram. 02/28/19 Anemia: No Asthma: No Cancer: No Cardiac Disorders: Yes CVA: No COPD: No CHF: No Dementia: No Diabetes: Yes GI Disorders: Yes Disorders: No HTN: Yes Hypercholesterolemia: No Liver Disease: No Seizures: No Thyroid Disease: No - Surgical History Abdominal Surgery: Yes Appendectomy: Yes Cardiac Surgery: Yes Cholecystectomy: No Lung Surgery: No Neurologic Surgery: No Orthopedic Surgery: Yes - Immunization History Immunization Up to Date: No - Suicide/Smoking/Psychosocial Hx Smoking Status: No Smoking History: Never smoked Have you smoked in the past 12 months: No Number of Cigarettes Smoked Daily: 0 Information on smoking cessation initiated: No Hx Alcohol Use: No Drug/Substance Use Hx: No Substance Use Type: None Hx Substance Use Treatment: No Review of Systems - Review of Systems Constitutional: No: Chills, Fever HEENTM: No: Recent change in vision Respiratory: Yes: Shortness of Breath Cardiac (ROS): No: Chest Pain, Lightheadedness, Palpitations, Syncope ABD/GI: No: Constipated, Diarrhea, Nausea, Vomiting : No: Burning, Dysuria *Physical Exam - Vital Signs Last Vital Signs Temp Pulse Resp BP Pulse Ox 98.8 F 114 H 24 H 174/92 H 95 03/11/19 04:39 03/11/19 04:39 03/11/19 04:39 03/11/19 04:39 03/11/19 04:39 - Physical Exam Comments: 03/11/19 05:39 Awake, alert Triage VS reviewed CV: S1, S2, Irregulary Irregular, B/L 2+ pitting edema Respiratory: scattered wheezing, non-labored breathing/no accessory muscle use Abdomen: soft, non-tender, (+) bowel sounds Neck: positive: Trachea midline, Supple Vascular Pulses: Dorsalis-Pedis (R): 2+, Doralis-Pedis (L): 2+ Extremity: positive: Normal Capillary Refill, Normal Inspection Integumentary: positive: Normal Color, Dry, Warm Neurologic: positive: nuclear medical technologist II-XII NML intact, Fully Oriented, Alert Heart Score/ECG Review - ECG Impressions Comment:: 03/11/19 06:19 AFib HR 97, no EPIFANIO/STD/TWI ED Treatment Course - LABORATORY CBC & Chemistry Diagram: 03/11/19 05:15 03/11/19 05:15 Medical Decision Making - Medical Decision Making 03/11/19 05:03 78 year old male w/chills, cold sweats. H/o COLINDRES possibly 2/2 to underlying undiagnosed lung pathology Hypertensive (BP 174/92), Tachycardic (HR 114), Tachypneic (RR 24) and Hypoxic ( SpO2 95%) at presentation ED Adult Sepsis order set Consider underlying pulmonary disease vs. r/o ACS vs. PE (patient has Afib not on A/C) as etiology of hypoxia, tachypnea,dyspnea PLAN: CTA, EKG, CXR, Troponin, Cardiac Monitoring, Duo-Nebs x3 03/11/19 05:25 Fingerstick 208 03/11/19 05:52 S/p Duo Neb x2, patient decreased wheezing on lung auscultation, remains hypoxic @ SpO2 94% CMP shows worsening renal function, Cr 1.6 (1.4 on 03/04) 03/11/19 05:58 BNP 2817 - c/w fluid overload on PE Will admit patient for cardiac evaluation of new onset CHF Patient counseled on plan of care, amenable to admission 03/11/19 06:13 Hospitalist microblogged for admission 03/11/19 06:48 Microblog received from hospitalist, states admit to inpatient telemetry, will call for signout before shift change 03/11/19 07:23 CTA negative for PE as well as pleural/pericardial effusion 03/11/19 07:26 Case d/w Dr. Koehler - will see patient @ bedside. Admission order changed from Dr. Roberts to Dr. Camarillo *DC/Admit/Observation/Transfer Diagnosis at time of Disposition: Fluid overload - Discharge Dispostion Condition at time of disposition: Fair Decision to Admit order: Yes - Referrals - Patient Instructions - Post Discharge Activity
--- NOTE | 2019-03-11 05:02 | PDOC ---
Attending Attestation - Resident Resident Name: Nereida Oliveros - ED Attending Attestation I have performed the following: I have examined & evaluated the patient, The case was reviewed & discussed with the resident, I agree w/resident's findings & plan - HPI HPI: 03/11/19 06:03 78-year-old male with increasing dyspnea on exertion. There is no history of fever. - Physicial Exam PE: 03/11/19 06:03 agree with residents exam - Medical Decision Making 03/11/19 06:12 78-year-old male with increasing dyspnea on exertion Patient had audible wheezing on arrival now decreased after nebulizer treatments 2 Chest x-ray shows no definite focal infiltrate EKG on arrival shows atrial fibrillation with a ventricular rate of 97 bpm Patient has elevation of his BNP, there is no old for comparison Plan for CTA to rule out pulmonary embolism due to persistent dyspnea and hypoxemia Patient will likely require admission for acute bronchospasm management
[2019-03-11] MEDS ORDERED: ALBUTEROL SO4 2.5/IPRATROPIUM 0.5 INH SOL 3 ML VIAL.NEB. NEB ONE ×4 (05:05→08:43)
[2019-03-11 05:30] LABS: BASO % 1.3 % (0-2.0); EOS % 28.6 % (0-4.5); HEMOGLOBIN 15.5 GM/dL (11.7-16.9); LYMPH % 16.2 % (8-40); MCH 29.8 pg (25.7-33.7); MCHC 33.7 g/dl (32.0-35.9); MEAN CELL VOLUME 88.6 fl (80-96); MEAN PLT VOLUME 7.6 fl (7.5-11.1); MONO % 9.3 % (3.8-10.2); NEUT % 44.6 % (42.8-82.8); PLATELET COUNT 264 K/MM3 (134-434); RDW 14.9 % (11.9-15.9); WHITE BLOOD COUNT 8.9 K/mm3 (4.0-10.0)
[2019-03-11 05:55] LABS: ALBUMIN 3.4 g/dl (3.4-5.0); BILIRUBIN,TOTAL 0.7 mg/dL (0.2-1); BLOOD UREA NITROGEN 21.2 mg/dL (7-18); CALCIUM 9.1 mg/dL (8.5-10.1); CREATININE 1.6 mg/dL (0.55-1.3); N-TERMINAL BNP 2817.1 pg/ml (5-450); POTASSIUM 3.7 mmol/L (3.5-5.1); TOT PROT 8.4 g/dl (6.4-8.2)
[2019-03-11] MEDS ORDERED: methylPREDNISolone NA SUCC 125 MG/2 ML VIAL IVPUSH ONE (06:34)
[2019-03-11] MEDS ORDERED: methylPREDNISolone NA SUCC 125 MG/2 ML VIAL ONE (06:37)
[2019-03-11 06:54] LABS: ANISOCYTOSIS 0; HELMET CELLS 0; HOWELL-JOLLY BODIES 0; MACROCYTOSIS 0; OVALOCYTE 0; PLATELET ESTIMATE NORMAL; ROULEAU 0; SICKELED CELLS 0; TARGET CELLS 0; TEAR DROP CELLS 0; TOXIC GRANULATION 0
[2019-03-11] MEDS: ALBUTEROL SO4 2.5/IPRATROPIUM 0.5 INH SOL 3 ML VIAL.NEB. NEB SCH ×3 (08:44→16:30)
--- NOTE | 2019-03-11 09:18 | HP ---
CHIEF COMPLAINT: SOB PCP: Dr. Rebollar HISTORY OF PRESENT ILLNESS: The patient is a 78 yo m w/ PMH HTN, DM, diabetic foot wound w/ OM (s/p PICC currently on abx and HBO), Afib (not on AC, s/p PPM) who comes into the ED c/o progressive SOB. The patient states that over the past 6 months, he has been experiencing progressively worsening SOB. This AM , the patient woke up and "didn't feel right" he associated this ssx with sweating as well and the SOB. Because of this, he presented to the ED for evaluation. Patient denies orthopnea , paroxysmal nocturnal dyspnea. Patient endorses decreased exercise tolerance, stating that he is only able to walk a block before becoming short of breath when he was able to prior to 6 months ago. 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 In the ED, the patient was noted to be wheezing on exam and saturating in the low 90's. The patient was placed on NC O2 and given duonebs x3 and 125 of medrol with good effect. Recent Travel: none PAST MEDICAL HISTORY: see HPI PAST SURGICAL HISTORY: b/l TKA appendectomy hernia repair PPM placement Cardiac valve repair (patient cannot recall which) Social History: Smoking: denies Alcohol: abused ETOH in the past, quit drinking >10 years ago Drugs: denies Family History: Patient unable to recall. Allergies morphine Allergy (Verified 03/11/19 04:48) HOME MEDICATIONS: Home Medications Medication Instructions Recorded Furosemide [Lasix -] 40 mg PO DAILY 02/13/19 Metformin HCl [Glucophage] 500 mg PO DAILY 02/13/19 Metoprolol Succinate [Toprol XL -] 50 mg PO DAILY 02/13/19 Potassium Chloride [K-Dur -] 10 meq PO DAILY 02/13/19 Ampicillin Na/Sulbactam Na [Unasyn 3 gm IVPB Q8H-IV 42 Days vial 02/24/19 -] Insulin Glargine,Hum.rec.anlog 40 unit SQ AM #1 vial 02/24/19 [Lantus] Lisinopril [Prinivil] 5 mg PO DAILY #30 tablet 02/24/19 Becaplermin [Regranex] 15 gm TP DAILY #1 gel..gram. 02/28/19 REVIEW OF SYSTEMS CONSTITUTIONAL: Absent: fever, chills, diaphoresis, generalized weakness, loss of appetite, weight change HEENT: Absent: rhinorrhea, nasal congestion, throat pain, throat swelling, difficulty swallowing, mouth swelling, ear pain, eye pain, visual changes CARDIOVASCULAR: Absent: chest pain, syncope, palpitations, irregular heart rate, lightheadedness , peripheral edema RESPIRATORY: Absent: cough, orthopnea, wheezing, stridor, hemoptysis GASTROINTESTINAL: Absent: abdominal pain, abdominal distension, nausea, vomiting, diarrhea, constipation, melena, hematochezia GENITOURINARY: Absent: dysuria, frequency, urgency, hesitancy, hematuria, flank pain, genital pain MUSCULOSKELETAL: Absent: myalgia, arthralgia, joint swelling, back pain, neck pain SKIN: Absent: rash, itching, pallor HEMATOLOGIC/IMMUNOLOGIC: Absent: easy bleeding, easy bruising, lymphadenopathy, frequent infections ENDOCRINE: Absent: unexplained weight gain, unexplained weight loss, heat intolerance, cold intolerance NEUROLOGIC: Absent: headache, focal weakness or paresthesias, dizziness, unsteady gait, seizure, mental status changes, bladder or bowel incontinence PSYCHIATRIC: Absent: anxiety, depression, suicidal or homicidal ideation, hallucinations. PHYSICAL EXAMINATION Vital Signs - 24 hr 03/11/19 03/11/19 03/11/19 04:39 06:40 07:24 Temperature 98.8 F Pulse Rate 114 H 112 H Pulse Rate [ 100 H Apical] Respiratory 24 H 19 Rate Blood Pressure 174/92 H Blood Pressure 155/92 [Left] O2 Sat by Pulse 95 97 95 Oximetry (%) GENERAL: Awake, alert, and fully oriented, in no acute distress. HEAD: Normal with no signs of trauma. EYES: Pupils equal, round and reactive to light, extraocular movements intact, sclera anicteric, conjunctiva clear. No lid lag. NECK: Normal range of motion, supple without lymphadenopathy, JVD, or masses. LUNGS: Breath sounds equal. No wheezes, crackles heard at the bases. No accessory muscle use. HEART: Regular rate and rhythm, normal S1 and S2 without murmur, rub or gallop. ABDOMEN: Soft, nontender, not distended, normoactive bowel sounds, no guarding, no rebound, no masses. Surgical scares noted. LOWER EXTREMITIES: 2+ pulses, warm, well-perfused. No calf tenderness. No peripheral edema. NEUROLOGICAL: Cranial nerves II-X intact. Normal speech. Normal gait. PSYCHIATRIC: Cooperative. Good eye contact. Appropriate mood and affect. SKIN: Warm, dry, normal turgor, no rashes or lesions noted, normal capillary refill. Laboratory Results - last 24 hr 03/11/19 03/11/19 03/11/19 05:15 05:15 05:15 WBC 8.9 RBC 5.20 Hgb 15.5 Hct 46.0 MCV 88.6 MCH 29.8 MCHC 33.7 RDW 14.9 Plt Count 264 MPV 7.6 Absolute Neuts (auto) 4.0 Neutrophils % 44.6 D Neutrophils % (Manual) 25.0 L Band Neutrophils % 2.1 Lymphocytes % 16.2 Lymphocytes % (Manual) 15.6 Monocytes % 9.3 Monocytes % (Manual) 4 Eosinophils % 28.6 H* D Eosinophils % (Manual) 41.7 H Basophils % 1.3 Basophils % (Manual) 1.0 Myelocytes % (Man) 3 H Promyelocytes % (Man) 0 Blast Cells % (Manual) 0 Nucleated RBC % 0 Metamyelocytes 0 Hypochromia 0 Toxic Granulation 0 Dohle Bodies 0 Platelet Estimate Normal Polychromasia 0 Poikilocytosis 0 Basophilic Stippling 0 Anisocytosis 0 Microcytosis 0 Macrocytosis 0 Spherocytes 0 Sickle Cells 0 Target Cells 0 Tear Drop Cells 0 Ovalocytes 0 Stomatocytes 0 Helmet Cells 0 [place] Bodies 0 [place] Rings 0 Sonal Cells 0 Acanthocytes (Spur) 0 Rouleaux 0 Fragmented RBCs 0 Schistocytes 0 Sodium 139 Potassium 3.7 Chloride 100 Carbon Dioxide 32 Anion Gap 7 L BUN 21.2 H Creatinine 1.6 H Est GFR (CKD-EPI)AfAm 47.46 Est GFR (CKD-EPI)NonAf 40.95 POC Glucometer Random Glucose 205 H Calcium 9.1 Total Bilirubin 0.7 AST 29 ALT 31 Alkaline Phosphatase 134 H Creatine Kinase 157 Creatine Kinase Index 1.9 CK-MB (CK-2) 3.0 Troponin I 0.04 B-Natriuretic Peptide 2817.1 H Total Protein 8.4 H Albumin 3.4 03/11/19 05:15 WBC RBC Hgb Hct MCV MCH MCHC RDW Plt Count MPV Absolute Neuts (auto) Neutrophils % Neutrophils % (Manual) Band Neutrophils % Lymphocytes % Lymphocytes % (Manual) Monocytes % Monocytes % (Manual) Eosinophils % Eosinophils % (Manual) Basophils % Basophils % (Manual) Myelocytes % (Man) Promyelocytes % (Man) Blast Cells % (Manual) Nucleated RBC % Metamyelocytes Hypochromia Toxic Granulation Dohle Bodies Platelet Estimate Polychromasia Poikilocytosis Basophilic Stippling Anisocytosis Microcytosis Macrocytosis Spherocytes Sickle Cells Target Cells Tear Drop Cells Ovalocytes Stomatocytes Helmet Cells [place] Bodies [place] Rings Sonal Cells Acanthocytes (Spur) Rouleaux Fragmented RBCs Schistocytes Sodium Potassium Chloride Carbon Dioxide Anion Gap BUN Creatinine Est GFR (CKD-EPI)AfAm Est GFR (CKD-EPI)NonAf POC Glucometer 208 Random Glucose Calcium Total Bilirubin AST ALT Alkaline Phosphatase Creatine Kinase Creatine Kinase Index CK-MB (CK-2) Troponin I B-Natriuretic Peptide Total Protein Albumin ASSESSMENT/PLAN: The patient is a 78 yo m w/ PMH HTN, DM, diabetic foot wound w/ OM (s/p PICC currently on abx and HBO), Afib (not on AC, s/p PPM) who comes into the ED c/o progressive SOB. SOB and decreased exercise tolerance possibly 2/2 acute bronchitis vs CHF exacerbation -s/p duonebs, steroids in the ED -patient no longer wheezing and has been weaned off supplemental O2 -no indication for further steroids -congestion and cardiomegaly seen on CXR, concerning for an element of overload -nebs standing and PRN -Lasix 40mg IV -Daily weights -I&Os -will need outpatient pulmonary f/u and PFTs -fluid restriction 1L -trop negativex1, ekg unchanged, patient w/o cp; low suspicion for ACS #OM of the foot -c/w unasyn q8h (week 3 of 6) -wound care #DM -resume home toujeo 40units SQ am -ISS -BGM achs #HTN -c/w home Prinivil 5mg #Afib -c/w home toprol xl 50 daily -CHADS-Vasc 4; patient requires AC #FEN -no fluids indicated -lytes WNL -DIabetic diet #Prophy -Heparin SQ 5K units TID #Dispo -tele obs Visit type - Emergency Visit Emergency Visit: Yes ED Registration Date: 03/11/19 Care time: The patient presented to the Emergency Department on the above date and was hospitalized for further evaluation of their emergent condition. - New Patient This patient is new to me today: Yes Date on this admission: 03/11/19 - Critical Care Critical Care patient: No
[2019-03-11] MEDS ORDERED: AMPICILLIN NA/SULBACTAM NA 3 GM VIAL IVPB SCH (10:15)
[2019-03-11] MEDS ORDERED: FUROSEMIDE 40 MG/4 ML INJECTABLE VIAL IVPUSH ONE (10:19)
--- NOTE | 2019-03-11 10:31 | EKG ---
Test Reason : Blood Pressure : / mmHG Vent. Rate : 097 BPM Atrial Rate : 108 BPM P-R Int : 000 ms QRS Dur : 090 ms QT Int : 374 ms P-R-T Axes : 000 -66 081 degrees QTc Int : 474 ms ATRIAL FIBRILLATION WITH PREMATURE VENTRICULAR OR ABERRANTLY CONDUCTED COMPLEXES LEFT ANTERIOR FASCICULAR BLOCK NONSPECIFIC T WAVE ABNORMALITY PROLONGED QT ABNORMAL ECG Confirmed by MD MARIAH, ADY ([id number]) on 03/11/2019 10:31:18 AM Referred By: Confirmed By:ADY LEMUS MD
[2019-03-11] MEDS ORDERED: INSULIN (NOVOLOG) ASPART 100 UNITS/ML 10ML VIAL ONE (11:21)
[2019-03-11] MEDS: INSULIN SLIDING SCALE (NOVOLOG) 1 VIAL SQ SCH ×3 (11:44→21:19)
[2019-03-11] MEDS: LISINOPRIL 5 MG TABLET (FP) PO SCH (11:45)
[2019-03-11] MEDS: AMPICILLIN NA/SULBACTAM NA 3 GM in SODIUM CHLORIDE 100 ML IVPB SCH ×2 (12:00→17:31)
[2019-03-11] MEDS: POTASSIUM CHLORIDE TABS 10 MEQ TABLET.ER (FP) PO SCH (12:39)
[2019-03-11 14:29] VITALS: BMI 34.9
[2019-03-11] MEDS ORDERED: INSULIN (NOVOLOG) ASPART 100 UNITS/ML 10ML VIAL SQ ONE (16:51)
[2019-03-11] MEDS ORDERED: INSULIN (LEVEMIR) 100 UNITS/ML UNITS SQ ONE (16:51)
[2019-03-11] MEDS ORDERED: PT OWN MED DRAWER 7, Y5N ONE ×2 (16:59→17:13)
--- NOTE | 2019-03-11 17:34 | PN ---
Teaching Attending Note Name of Resident: Gume Koehler ATTENDING PHYSICIAN STATEMENT I saw and evaluated the patient. I reviewed the resident's note and discussed the case with the resident. I agree with the resident's findings and plan as documented. SUBJECTIVE: Feels better - less SOB. No cough/sputum/hemoptysis. No fever/ chills. OBJECTIVE: Afebrile, Hemodynamically Stable. Last Vital Signs Temp Pulse Resp BP Pulse Ox 98 F 97 H 20 136/96 92 L 03/11/19 14:20 03/11/19 14:20 03/11/19 14:20 03/11/19 14:20 03/11/19 10:50 HEENT - Atraumatic, Normocephalic Heart - S1, S2, RRR Lungs - clear to auscultation Abdomen - Soft, non-tender. Bowel Sounds normal Extremities - LE edema, chronic venous stasis skin changes. Laboratory Results - last 24 hr 03/11/19 03/11/19 03/11/19 05:15 05:15 05:15 WBC 8.9 RBC 5.20 Hgb 15.5 Hct 46.0 MCV 88.6 MCH 29.8 MCHC 33.7 RDW 14.9 Plt Count 264 MPV 7.6 Absolute Neuts (auto) 4.0 Neutrophils % 44.6 D Neutrophils % (Manual) 25.0 L Band Neutrophils % 2.1 Lymphocytes % 16.2 Lymphocytes % (Manual) 15.6 Monocytes % 9.3 Monocytes % (Manual) 4 Eosinophils % 28.6 H* D Eosinophils % (Manual) 41.7 H Basophils % 1.3 Basophils % (Manual) 1.0 Myelocytes % (Man) 3 H Promyelocytes % (Man) 0 Blast Cells % (Manual) 0 Nucleated RBC % 0 Metamyelocytes 0 Hypochromia 0 Toxic Granulation 0 Dohle Bodies 0 Platelet Estimate Normal Polychromasia 0 Poikilocytosis 0 Basophilic Stippling 0 Anisocytosis 0 Microcytosis 0 Macrocytosis 0 Spherocytes 0 Sickle Cells 0 Target Cells 0 Tear Drop Cells 0 Ovalocytes 0 Stomatocytes 0 Helmet Cells 0 [place] Bodies 0 [place] Rings 0 Sonal Cells 0 Acanthocytes (Spur) 0 Rouleaux 0 Fragmented RBCs 0 Schistocytes 0 Sodium 139 Potassium 3.7 Chloride 100 Carbon Dioxide 32 Anion Gap 7 L BUN 21.2 H Creatinine 1.6 H Est GFR (CKD-EPI)AfAm 47.46 Est GFR (CKD-EPI)NonAf 40.95 POC Glucometer Random Glucose 205 H Calcium 9.1 Phosphorus 4.0 Magnesium 2.0 Total Bilirubin 0.7 AST 29 ALT 31 Alkaline Phosphatase 134 H Creatine Kinase 157 Creatine Kinase Index 1.9 CK-MB (CK-2) 3.0 Troponin I 0.04 B-Natriuretic Peptide 2817.1 H Total Protein 8.4 H Albumin 3.4 03/11/19 03/11/19 03/11/19 05:15 10:49 16:29 WBC RBC Hgb Hct MCV MCH MCHC RDW Plt Count MPV Absolute Neuts (auto) Neutrophils % Neutrophils % (Manual) Band Neutrophils % Lymphocytes % Lymphocytes % (Manual) Monocytes % Monocytes % (Manual) Eosinophils % Eosinophils % (Manual) Basophils % Basophils % (Manual) Myelocytes % (Man) Promyelocytes % (Man) Blast Cells % (Manual) Nucleated RBC % Metamyelocytes Hypochromia Toxic Granulation Dohle Bodies Platelet Estimate Polychromasia Poikilocytosis Basophilic Stippling Anisocytosis Microcytosis Macrocytosis Spherocytes Sickle Cells Target Cells Tear Drop Cells Ovalocytes Stomatocytes Helmet Cells [place] Bodies [place] Rings [place] Cells Acanthocytes (Spur) Rouleaux Fragmented RBCs Schistocytes Sodium Potassium Chloride Carbon Dioxide Anion Gap BUN Creatinine Est GFR (CKD-EPI)AfAm Est GFR (CKD-EPI)NonAf POC Glucometer 208 274 454 Random Glucose Calcium Phosphorus Magnesium Total Bilirubin AST ALT Alkaline Phosphatase Creatine Kinase Creatine Kinase Index CK-MB (CK-2) Troponin I B-Natriuretic Peptide Total Protein Albumin Current Medications Generic Name Dose Route Start Last Admin Trade Name Freq PRN Reason Stop Dose Admin Albuterol Sulfate 1 amp 03/11/19 07:36 Ventolin 0.083% Nebulizer Soln - NEB Q4H PRN SHORT OF BREATH/WHEEZING Albuterol/Ipratropium 1 amp 03/11/19 08:00 03/11/19 08:44 Duoneb - NEB 1 amp RQID LOUISE Administration Furosemide 40 mg 03/12/19 10:00 Lasix Injection - IVPUSH DAILY LOUISE Heparin Sodium (Porcine) 5,000 unit 03/11/19 22:00 Heparin - SQ TID LOUISE Ampicillin Sodium/Sulbactam 100 mls @ 200 mls/hr 03/11/19 11:00 03/11/19 12: 00 Sodium 3 gm/ Sodium Chloride IVPB Not Given Q8H-IV LOUISE Insulin Aspart 1 vial 03/11/19 11:00 03/11/19 11:44 Novolog Vial Sliding Scale - SQ 6 units ACHS LOUISE Administration Protocol Insulin Detemir 40 units 03/12/19 07:00 Levemir Vial SQ AM LOUISE Lisinopril 5 mg 03/11/19 10:30 03/11/19 11:45 Prinivil PO 5 mg DAILY LOUISE Administration Metoprolol Succinate 50 mg 03/12/19 10:00 03/11/19 12:38 Toprol Xl - PO 50 mg DAILY LOUISE Administration Non-Formulary Medication 15 gm 03/12/19 10:00 Becaplermin [Regranex] TP DAILY LOUISE Potassium Chloride 10 meq 03/12/19 10:00 03/11/19 12:39 K-Dur - PO 10 meq DAILY OLUISE Administration Home Medications Medication Instructions Recorded Furosemide [Lasix -] 40 mg PO DAILY 02/13/19 Metformin HCl [Glucophage] 500 mg PO DAILY 02/13/19 Metoprolol Succinate [Toprol XL -] 50 mg PO DAILY 02/13/19 Potassium Chloride [K-Dur -] 10 meq PO DAILY 02/13/19 Ampicillin Na/Sulbactam Na [Unasyn 3 gm IVPB Q8H-IV 42 Days vial 02/24/19 -] Insulin Glargine,Hum.rec.anlog 40 unit SQ AM #1 vial 02/24/19 [Lantus] Lisinopril [Prinivil] 5 mg PO DAILY #30 tablet 02/24/19 Becaplermin [Regranex] 15 gm TP DAILY #1 gel..gram. 02/28/19 ASSESSMENT AND PLAN: 78 year old male with HTN, DM 2, CKD 3, Chronic L Foot Ulcer/Osteomyelitis (on IV Abx, R CV line in situ, Hyperbaric O2 treatment), Valvular Heart Disease s/p MV replacement, Atrial fibrillation (not on AC), s/p PPM, presents with increasing SOB, worse on exertion. 1. Acute CHF Exacerbation Improved s/p IV Lasix. Continue IV lasix 40 mg daily. Congestive changes on Chest CT BNP 2817, TropI neg, ECG - Afib without acute changes. Echo pending Cardiac Monitoring Cardiology consult Daily weight, I/Os. 2. Atrial Fibrillation - rate controlled, not on AC Continue Toprol XL 50mg Will consult cardiology for CHF and recommendation re: need for anticoagulation 3. OM L Foot Continue IV Unasyn via R CV line (week 3 of 6) Wound Care 4. DM 2 - Hyperglycemic currently, reports running out of home insulin. Normally on Glargine 40 units in AM - will resume along with sliding scale. 5. HTN - Continue Lisinopril and Toprol. 6. CKD 3 - Creat on upper limits of baseline range, Will monitor. DVT Px - Heparin SQ.
[2019-03-11] MEDS: HEPARIN NA (PORCINE) 5,000 UNITS/ML 1ML VIAL SQ SCH (21:11)
[2019-03-12] MEDS: AMPICILLIN NA/SULBACTAM NA 3 GM in SODIUM CHLORIDE 100 ML IVPB SCH ×3 (02:30→17:01)
[2019-03-12] MEDS: HEPARIN NA (PORCINE) 5,000 UNITS/ML 1ML VIAL SQ SCH (06:33)
[2019-03-12] MEDS: INSULIN (LEVEMIR) 100 UNITS/ML UNITS SQ SCH (06:35)
[2019-03-12] MEDS: INSULIN SLIDING SCALE (NOVOLOG) 1 VIAL SQ SCH ×4 (06:36→21:10)
[2019-03-12 07:15] LABS: HEMATOCRIT 45.1 % (35.4-49); HEMOGLOBIN 15.2 GM/dL (11.7-16.9); MCH 29.8 pg (25.7-33.7); MCHC 33.8 g/dl (32.0-35.9); MEAN CELL VOLUME 88.1 fl (80-96); MEAN PLT VOLUME 8.1 fl (7.5-11.1); PLATELET COUNT 272 K/MM3 (134-434); RBC 5.12 M/mm3 (4.00-5.60); RDW 15.1 % (11.9-15.9)
[2019-03-12 07:43] LABS: ALBUMIN 3.3 g/dl (3.4-5.0); BILIRUBIN,TOTAL 0.5 mg/dL (0.2-1); BLOOD UREA NITROGEN 36.9 mg/dL (7-18); CREATININE 1.8 mg/dL (0.55-1.3); MAGNESIUM 2.1 mg/dL (1.8-2.4); PHOSPHOROUS 4.2 mg/dL (2.5-4.9); POTASSIUM 3.9 mmol/L (3.5-5.1); TOT PROT 7.8 g/dl (6.4-8.2)
[2019-03-12] MEDS ORDERED: INSULIN (NOVOLOG) ASPART 100 UNITS/ML 10ML VIAL ONE (09:35)
[2019-03-12] MEDS ORDERED: PT OWN MED DRAWER 7, Y5N ONE ×2 (09:36→16:58)
[2019-03-12] MEDS ORDERED: PATIENT'S OWN MEDICATION (NON-FORMULARY) (Becaplermin [Regranex] 15 GM) TP SCH (10:00)
[2019-03-12] MEDS ORDERED: FUROSEMIDE 40 MG/4 ML INJECTABLE VIAL IVPUSH SCH (10:00)
[2019-03-12] MEDS: POTASSIUM CHLORIDE TABS 10 MEQ TABLET.ER (FP) PO SCH (10:02)
[2019-03-12] MEDS: LISINOPRIL 5 MG TABLET (FP) PO SCH (10:02)
[2019-03-12] MEDS ORDERED: FUROSEMIDE 40 MG/4 ML INJECTABLE VIAL IVPUSH ONE (11:59)
--- NOTE | 2019-03-12 13:27 | ECHO ---
Name: CHRIS SOTOMAYOR Exam:Adult Echocardiogram Study Date: 03/12/2019 08:37 AM Age: 78 yrs Reason For Study: CHF Height: 65 in Weight: 210 lb BSA: 2.0 m2 MMode/2D Measurements & Calculations IVSd: 0.98 cm Ao root diam: 3.2 cm LVIDd: 4.8 cm LA dimension: 5.1 cm LVIDs: 3.5 cm LVPWd: 1.1 cm EDV(Teich): 109.3 ml LVOT diam: 2.0 cm ESV(Teich): 52.0 ml LAV (MOD-bp): 104.0 ml Doppler Measurements & Calculations MV V2 max: 186.0 cm/sec MV E max thomas: 141.0 cm/sec MV max P.8 mmHg MV dec time: 0.24 sec MV V2 mean: 86.9 cm/sec MV mean P.1 mmHg MV V2 VTI: 48.9 cm Ao V2 max: 154.7 cm/sec LV V1 max P.1 mmHg Ao max P.6 mmHg LV V1 max: 52.9 cm/sec FAYE(V,D): 1.1 cm2 TR max thomas: 284.7 cm/sec PA V2 max: 80.1 cm/sec TR max P.5 mmHg PA max P.6 mmHg Med Peak E' Thomas: 5.2 cm/sec PI Vmax: 162.9 cm/sec Med E/e': 27.0 Lat Peak E' Thomas: 8.7 cm/sec Lat E/e': 16.2 Procedure A two-dimensional transthoracic echocardiogram with color flow and Doppler was performed. The study w as technically difficult with many images being suboptimal in quality. Left Ventricle The left ventricle is grossly normal size. Left ventricular systolic function is moderately reduced. There is moderate global hypokinesis of the left ventricle. Septal motion is consistent with post-operative st ate. Right Ventricle The right ventricle is not well visualized. There is a pacemaker lead in the right ventricle. Atria The left atrium is severely dilated. The right atrium is severely dilated. Mitral Valve The prosthetic mitral valve is not well visualized. There is a bioprosthetic mitral valve. The prosth etic mitral valve is well-seated. There is mild mitral stenosis. There is mild mitral regurgitation. Tricuspid Valve There is mild tricuspid valve thickening. There is no tricuspid stenosis. There is severe tricuspid regurgitation. Right ventricular systolic pressure is elevated at 40-50mmHg. Aortic Valve There is mild to moderate aortic valve thickening. There is mild to moderate aortic sclerosis.;. No hemodynamically significant valvular aortic stenosis. No aortic regurgitation is present. Pulmonic Valve The pulmonic valve is not well visualized. Great Vessels The aortic root is normal size. Pericardium/Pleura There is no pericardial effusion. Interpretation Summary The left ventricle is grossly normal size. The left atrium is severely dilated. The right atrium is severely dilated. There is a pacemaker lead in the right ventricle. There is severe tricuspid regurgitation. Right ventricular systolic pressure is elevated at 40-50mmHg. The prosthetic mitral valve is not well visualized. There is a bioprosthetic mitral valve. The prosthetic mitral valve is well-seated. Left ventricular systolic function is moderately reduced. There is moderate global hypokinesis of the left ventricle. Septal motion is consistent with post-operative state. There is mild mitral stenosis. The study was technically difficult with many images being suboptimal in quality. There is mild mitral regurgitation. MD Owen Lane 03/12/2019 01:27 PM
--- NOTE | 2019-03-12 13:32 | CON.CARD ---
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 Patient denies orthopnea, paroxysmal nocturnal dyspnea, near or true syncope, palpitations. Patient endorses decreased exercise tolerance, stating that he is only able to walk a block before becoming short of breath when he was able to prior to 6 months ago. Symptoms improving with IV diuresis. - History Source History Provided By: Patient Limitations to Obtaining History: No Limitations - Past Medical History Cardio/Vascular: Yes: AFIB, HTN - Past Surgical History Past Surgical History: Yes: Permanent Pacemaker, Valve Replacement - Alcohol/Substance Use Hx Alcohol Use: No - Smoking History Smoking history: Never smoked Have you smoked in the past 12 months: No Aproximately how many cigarettes per day: 0 Home Medications - Allergies Allergies/Adverse Reactions: Allergies Allergy/AdvReac Type Severity Reaction Status Date / Time morphine Allergy Verified 03/11/19 04:48 - Home Medications Home Medications: Ambulatory Orders Furosemide [Lasix -] 40 mg PO DAILY 02/13/19 Metformin HCl [Glucophage] 500 mg PO DAILY 02/13/19 Metoprolol Succinate [Toprol XL -] 50 mg PO DAILY 02/13/19 Potassium Chloride [K-Dur -] 10 meq PO DAILY 02/13/19 Ampicillin Na/Sulbactam Na [Unasyn -] 3 gm IVPB Q8H-IV 42 Days vial 02/24/19 Insulin Glargine,Hum.rec.anlog [Lantus] 40 unit SQ AM #1 vial 02/24/19 Lisinopril [Prinivil] 5 mg PO DAILY #30 tablet 02/24/19 Becaplermin [Regranex] 15 gm TP DAILY #1 gel..gram. 02/28/19 Review of Systems - Review of Systems Cardiovascular: reports: Edema, Shortness of Breath Respiratory: reports: Exercise Intolerance, SOB on Exertion Vital Signs: Vital Signs Temperature 98.2 F 03/12/19 09:10 Pulse Rate 94 H 03/12/19 09:10 Respiratory Rate 18 03/12/19 09:10 Blood Pressure 116/72 03/12/19 09:10 O2 Sat by Pulse Oximetry (%) 93 L 03/11/19 21:00 Constitutional: Yes: No Distress, Calm Neck: Yes: Supple Respiratory: Yes: Regular, Diminished Gastrointestinal: Yes: Normal Bowel Sounds, Soft, Abdomen, Obese Cardiovascular: Yes: Pulse Irregular JVD: No Carotid Bruit: No Heart Sounds: Yes: S1, S2 Murmur: Yes: Systolic Murmur, Grade 1 Edema: Yes Edema: LLE: 1+, RLE: 1+ - Other Data Labs, Other Data: CBC, BMP 03/12/19 05:43 03/12/19 05:43 Afib @ 97 Ejection Fraction %: LVEF < 40 % Imaging - Results Chest X-ray: Report Reviewed (CHF, pacer) Cat Scan: Report Reviewed Problem List - Problems (1) Acute on chronic systolic (congestive) heart failure Code(s): I50.23 - ACUTE ON CHRONIC SYSTOLIC (CONGESTIVE) HEART FAILURE (2) Pacemaker Code(s): Z95.0 - PRESENCE OF CARDIAC PACEMAKER (4) Atrial fibrillation Code(s): I48.91 - UNSPECIFIED ATRIAL FIBRILLATION Qualifiers: Atrial fibrillation type: permanent Qualified Code(s): I48.2 - Chronic atrial fibrillation (5) Osteomyelitis Code(s): M86.9 - OSTEOMYELITIS, UNSPECIFIED Qualifiers: Osteomyelitis location: foot Laterality: left (6) Diabetes mellitus Code(s): E11.9 - TYPE 2 DIABETES MELLITUS WITHOUT COMPLICATIONS Qualifiers: Diabetes mellitus type: type 2 Diabetes mellitus 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 block assembler insulin use: with jail use Chronic kidney disease stage: stage 3 (moderate) (7) Diabetic foot ulcer Code(s): E11.621 - TYPE 2 DIABETES MELLITUS WITH FOOT ULCER; L97.509 - NON- PRESSURE CHRONIC ULCER OTH PRT UNSP FOOT W UNSP SEVERITY Qualifiers: Diabetic foot ulcer location: toe Diabetes mellitus type: type 2 Laterality: left (8) Hypertension Code(s): I10 - ESSENTIAL (PRIMARY) HYPERTENSION Qualifiers: Hypertension type: essential hypertension Qualified Code(s): I10 - Essential (primary) hypertension (9) PVD (peripheral vascular disease) Code(s): I73.9 - PERIPHERAL VASCULAR DISEASE, UNSPECIFIED (10) Acute kidney injury superimposed on chronic kidney disease Code(s): N17.9 - ACUTE KIDNEY FAILURE, UNSPECIFIED; N18.9 - CHRONIC KIDNEY DISEASE, UNSPECIFIED Assessment/Plan 03/11/2019 Echo: Normal LV size with moderate decreased LVEF, severe DENNY, bioMVR , severe TR, RVSP 40-50, mild MS/MR, pacer seen, paradoxical septal motion due to post-op state 03/11/[address]: congestion s/p MVR, pacemaker, right central venous case 1. Acute on chronic systolic heart failure improving 2. s/p bio MV replacement 3. Permanent afib not on A/c 4. Hypertensive heart disease 5. Type 2 DM 6. Acute on CKD 3 7. Chronic L Foot Ulcer/Osteomyelitis (on IV Abx, R CV line in situ, Hyperbaric O2 treatment) 8. s/p dual chamber PPM w/o interrogation in many years P: 1. IV diuresis with monitor diuretic response, renal fxn and electrolytes, check TSH, lipid panel and Ha1c 2. Continue Toprol XL 50 qd, lisinopril 5 qd with uptitration as tolerated, eventual aldactone once renal fxn stable 3. Start Eliquis 5 bid given elevated [id number] risk score 4. OM L Foot - Continue IV Unasyn via R CV line (week 3 of 6) and wound Care 5. Eventual f/u with office for device interrogation and cardiac f/u [phone], possible Entresto initiation 6. Thank you for consultative opportunity, counselled on diet, medication and f/ u compliance, NSAID avoidance
--- NOTE | 2019-03-12 14:12 | PN ---
Teaching Attending Note Name of Resident: Sharon Simon ATTENDING PHYSICIAN STATEMENT I saw and evaluated the patient. I reviewed the resident's note and discussed the case with the resident. I agree with the resident's findings and plan as documented. SUBJECTIVE: Dyspnea much improved. No cough/sputum/hemoptysis. No fever/chills. OBJECTIVE: Afebrile, Hemodynamically Stable. Last Vital Signs Temp Pulse Resp BP Pulse Ox 98.2 F 94 H 18 116/72 95 03/12/19 09:10 03/12/19 09:10 03/12/19 09:10 03/12/19 09:10 03/12/19 09:10 Heart - S1, S2, RRR Lungs - few basal crackles. Abdomen - Soft, non-tender. Bowel Sounds normal Extremities - LE edema, chronic venous stasis skin changes. Laboratory Results - last 24 hr 03/11/19 03/11/19 03/12/19 16:29 21:13 05:43 WBC 14.0 H RBC 5.12 Hgb 15.2 Hct 45.1 MCV 88.1 MCH 29.8 MCHC 33.8 RDW 15.1 Plt Count 272 MPV 8.1 Sodium Potassium Chloride Carbon Dioxide Anion Gap BUN Creatinine Est GFR (CKD-EPI)AfAm Est GFR (CKD-EPI)NonAf POC Glucometer 454 322 Random Glucose Calcium Phosphorus Magnesium Total Bilirubin AST ALT Alkaline Phosphatase Total Protein Albumin 03/12/19 03/12/19 03/12/19 05:43 06:31 11:36 WBC RBC Hgb Hct MCV MCH MCHC RDW Plt Count MPV Sodium 136 Potassium 3.9 Chloride 96 L Carbon Dioxide 29 Anion Gap 10 BUN 36.9 H Creatinine 1.8 H Est GFR (CKD-EPI)AfAm 41.16 Est GFR (CKD-EPI)NonAf 35.51 POC Glucometer 200 145 Random Glucose 183 H Calcium 9.0 Phosphorus 4.2 Magnesium 2.1 Total Bilirubin 0.5 AST 22 ALT 29 Alkaline Phosphatase 116 Total Protein 7.8 Albumin 3.3 L Current Medications Generic Name Dose Route Start Last Admin Trade Name Freq PRN Reason Stop Dose Admin Albuterol Sulfate 1 amp 03/11/19 07:36 Ventolin 0.083% Nebulizer Soln - NEB Q4H PRN SHORT OF BREATH/WHEEZING Apixaban 5 mg 03/12/19 14:00 Eliquis - PO BID [facility] Furosemide 40 mg 03/13/19 10:00 Lasix Injection - IVPUSH DAILY [facility] Ampicillin Sodium/Sulbactam 100 mls @ 200 mls/hr 03/11/19 11:00 03/12/19 10: 02 Sodium 3 gm/ Sodium Chloride IVPB 200 mls/hr Q8H-IV [facility] Administration Insulin Aspart 1 vial 03/11/19 11:00 03/12/19 11:37 Novolog Vial Sliding Scale - SQ Not Given ACHS [facility] Protocol Insulin Detemir 40 units 03/12/19 07:00 03/12/19 06:35 Levemir Vial SQ 40 units AM [facility] Administration Lisinopril 5 mg 03/11/19 10:30 03/12/19 10:02 Prinivil PO 5 mg DAILY [facility] Administration Metoprolol Succinate 50 mg 03/12/19 10:00 03/12/19 10:02 Toprol Xl - PO 50 mg DAILY [facility] Administration Non-Formulary Medication 15 gm 03/12/19 10:00 Becaplermin [Regranex] TP DAILY [facility] Potassium Chloride 10 meq 03/12/19 10:00 03/12/19 10:02 K-Dur - PO 10 meq DAILY [facility] Administration ASSESSMENT AND PLAN: 78 year old male with HTN, DM 2, CKD 3, Chronic L Foot Ulcer/Osteomyelitis (on IV Abx, R CV line in situ, Hyperbaric O2 treatment), Valvular Heart Disease s/p MV replacement, Atrial fibrillation (not on AC), s/p PPM, presents with increasing SOB, worse on exertion. 1. Acute Systolic CHF Exacerbation Improved s/p IV Lasix. Congestive changes on Chest CT BNP 2817, TropI neg, ECG - Afib without acute changes. Echo - Global hypokinesis, LV systolic function moderately reduced, LA severely dilated, Bioprosthetic MV, RV syst pressure 40-50mmHg, Severe TR. Cardiology consulted - Continue IV lasix 40 mg daily. For slow up-titration of HF meds. Continue BB, BLANCA-I. For possible initiation on Entresto as out-patient. Daily weight, I/Os. 2. Atrial Fibrillation - rate controlledon Toprol XL 50mg Will start on AC with Eliquis given CHADSVASC score. 3. OM L Foot Continue IV Unasyn via R CV line (week 3 of 6) Wound Care 4. DM 2 - Hyperglycemic currently, reports running out of home insulin. Normally on Glargine 40 units in AM - resumed, along with sliding scale. 5. HTN - Continue Lisinopril and Toprol. 6. CKD 3 - Creat elevated s/p IV Lasix. Continue Lasix diuresis as per Cardiology. Will monitor. DVT Px - Eliquis.
[2019-03-12] MEDS: APIXABAN 5 MG TABLET PO SCH ×2 (14:21→21:09)
--- NOTE | 2019-03-12 14:56 | PN ---
Physical Exam: SUBJECTIVE: Patient seen this morning and reports he is feeling much better. Patient had no acute events overnight. OBJECTIVE: Vital Signs Temperature 98.2 F 03/12/19 09:10 Pulse Rate 94 H 03/12/19 09:10 Respiratory Rate 18 03/12/19 09:10 Blood Pressure 116/72 03/12/19 09:10 O2 Sat by Pulse Oximetry (%) 95 03/12/19 09:10 GENERAL: The patient is awake, alert, and fully oriented, in no acute distress. HEAD: Normal with no signs of trauma. EYES: PERRL, extraocular movements intact ENT: moist mucous membranes. LUNGS: mild crackles at bases, no wheezing or rhonci HEART: Regular rate and rhythm, S1, S2 without murmur, rub or gallop. ABDOMEN: Soft, nontender, nondistended, normoactive bowel sounds, EXTREMITIES:1+ pitting edema SKIN: Warm, dry, normal turgor, no rashes or lesions noted CBC, BMP 03/12/19 05:43 03/12/19 05:43 Active Medications Albuterol Sulfate (Ventolin 0.083% Nebulizer Soln -) 1 amp NEB Q4H PRN PRN Reason: SHORT OF BREATH/WHEEZING Apixaban (Eliquis -) 5 mg PO BID [facility] Last Admin: 03/12/19 14:21 Dose: 5 mg Furosemide (Lasix Injection -) 40 mg IVPUSH DAILY [facility] Ampicillin Sodium/Sulbactam (Sodium 3 gm/ Sodium Chloride) 100 mls @ 200 mls/ hr IVPB Q8H-IV [facility] Last Admin: 03/12/19 10:02 Dose: 200 mls/hr Insulin Aspart (Novolog Vial Sliding Scale -) 1 vial SQ ACHS [facility]; Protocol Last Admin: 03/12/19 11:37 Dose: Not Given Insulin Detemir (Levemir Vial) 40 units SQ AM [facility] Last Admin: 03/12/19 06:35 Dose: 40 units Lisinopril (Prinivil) 5 mg PO DAILY [facility] Last Admin: 03/12/19 10:02 Dose: 5 mg Metoprolol Succinate (Toprol Xl -) 50 mg PO DAILY [facility] Last Admin: 03/12/19 10:02 Dose: 50 mg Non-Formulary Medication (Becaplermin [Regranex]) 15 gm TP DAILY [facility] Potassium Chloride (K-Dur -) 10 meq PO DAILY [facility] Last Admin: 03/12/19 10:02 Dose: 10 meq ASSESSMENT/PLAN: Patient is a 78 y/o male with a history of HTN, DM, diabetic foot wound, afib, who is admitted for SOB, likely 2/2 to new CHF. # CHF, systolic - Echo: Normal LV size with moderate decreased LVEF, severe DENNY, bioMVR, severe TR, RVSP 40-50, mild MS/MR, pacer seen, paradoxical septal motion due to post-op state - Chest CT: congestion s/p MVR, pacemaker, right central venous case - continue lasix 40 IV daily - monitor I's and O's - metoprolol XL 50 daily, lisinopril 5 daily, will begin aldactone once renal function stable - patient to f/u with cardio as an outpatient #afib - begin elliquis 5 mg BID - CHADSVASC 4 - continue metorprolol - patient has a positive hx of GI bleeding, risk of stroke> GI bleed, will continue to monitor closely and discussed with PCP #DM - SS - levemir 40 units #CKD 3 - continue to monitor - darlene 2/2 to lasix, will continue as per cardio - Cr in 10.18 #hypothyroidism hx - follow up TSH tomorrow -restart synthroid if low #osteomyelitis - continue unasyn 3gm q8h - through PICC line - patient follows with wound care - do not have cream in hospital, will ask patient to bring in from home #DVT ppx - on eliquis FEN - continue diabetic diet - on K dur, f/u lytes Dispo: likely tomorrow, monitor condition - spoke to PCP Dr. Rebollar, patient is non compliant, discussed patient is supposed to be on anticoagulation and has a long hx of CHF - number [phone], fax: [phone] Visit type - Emergency Visit Emergency Visit: No - New Patient This patient is new to me today: No - Critical Care Critical Care patient: No
[2019-03-13] MEDS ORDERED: PT OWN MED DRAWER 7, Y5N ONE ×3 (01:55→16:57)
[2019-03-13] MEDS: AMPICILLIN NA/SULBACTAM NA 3 GM in SODIUM CHLORIDE 100 ML IVPB SCH ×3 (02:10→17:03)
[2019-03-13] MEDS: INSULIN (LEVEMIR) 100 UNITS/ML UNITS SQ SCH (06:06)
[2019-03-13] MEDS: INSULIN SLIDING SCALE (NOVOLOG) 1 VIAL SQ SCH ×4 (06:07→21:34)
[2019-03-13 06:57] LABS: HEMATOCRIT 46.3 % (35.4-49); HEMOGLOBIN 15.3 GM/dL (11.7-16.9); MCH 29.3 pg (25.7-33.7); MEAN CELL VOLUME 88.7 fl (80-96); MEAN PLT VOLUME 7.8 fl (7.5-11.1); PLATELET COUNT 280 K/MM3 (134-434); RBC 5.22 M/mm3 (4.00-5.60); RDW 15.4 % (11.9-15.9); WHITE BLOOD COUNT 8.5 K/mm3 (4.0-10.0)
[2019-03-13 07:17] LABS: BLOOD UREA NITROGEN 50.5 mg/dL (7-18); CALCIUM 8.6 mg/dL (8.5-10.1); CREATININE 1.9 mg/dL (0.55-1.3); MAGNESIUM 2.3 mg/dL (1.8-2.4); POTASSIUM 3.9 mmol/L (3.5-5.1)
[2019-03-13] MEDS: LISINOPRIL 5 MG TABLET (FP) PO SCH (09:30)
[2019-03-13] MEDS: POTASSIUM CHLORIDE TABS 10 MEQ TABLET.ER (FP) PO SCH (09:30)
[2019-03-13] MEDS: APIXABAN 5 MG TABLET PO SCH ×2 (09:30→21:31)
[2019-03-13] MEDS: ALBUTEROL SO4 0.083% IH SOL 2.5 MG/3 ML VIAL.NEB. NEB PRN (09:51)
[2019-03-13] MEDS ORDERED: FUROSEMIDE 40 MG/4 ML INJECTABLE VIAL IVPUSH SCH (10:00)
--- NOTE | 2019-03-13 10:29 | PN ---
Progress Note, Physician History of Present Illness: SOB with exertion, bilateral LE edema resolving with diuresis and improved BP control, BUN and Cr increasing. - Current Medication List Current Medications: Active Medications Albuterol Sulfate (Ventolin 0.083% Nebulizer Soln -) 1 amp NEB Q4H PRN PRN Reason: SHORT OF BREATH/WHEEZING Last Admin: 03/13/19 09:51 Dose: 1 amp Apixaban (Eliquis -) 5 mg PO BID [facility] Last Admin: 03/13/19 09:30 Dose: 5 mg Furosemide (Lasix Injection -) 40 mg IVPUSH DAILY [facility] Ampicillin Sodium/Sulbactam (Sodium 3 gm/ Sodium Chloride) 100 mls @ 200 mls/ hr IVPB Q8H-IV [facility] Last Admin: 03/13/19 09:30 Dose: 200 mls/hr Insulin Aspart (Novolog Vial Sliding Scale -) 1 vial SQ ACHS [facility]; Protocol Last Admin: 03/13/19 06:07 Dose: Not Given Insulin Detemir (Levemir Vial) 40 units SQ AM [facility] Last Admin: 03/13/19 06:06 Dose: 40 units Lisinopril (Prinivil) 5 mg PO DAILY [facility] Last Admin: 03/13/19 09:30 Dose: 5 mg Metoprolol Succinate (Toprol Xl -) 50 mg PO DAILY [facility] Last Admin: 03/13/19 09:30 Dose: 50 mg Potassium Chloride (K-Dur -) 10 meq PO DAILY [facility] Last Admin: 03/13/19 09:30 Dose: 10 meq - Objective Vital Signs: Vital Signs Temperature 98.1 F 03/13/19 10:00 Pulse Rate 84 03/13/19 10:00 Respiratory Rate 20 03/13/19 10:00 Blood Pressure 119/76 03/13/19 10:00 O2 Sat by Pulse Oximetry (%) 94 L 03/13/19 09:00 Constitutional: Yes: No Distress, Calm Neck: Yes: Supple Cardiovascular: Yes: Pulse Irregular, Murmur (2/6 SM) Respiratory: Yes: Regular, Diminished Gastrointestinal: Yes: Normal Bowel Sounds, Soft, Abdomen, Obese Edema: Yes Edema: LLE: Trace, RLE: Trace Labs: CBC, BMP 03/13/19 05:30 03/13/19 05:37 - ....Imaging EKG: Report Reviewed (Tele: Rate-controlled afib) Problem List - Problems (1) Acute on chronic systolic (congestive) heart failure Code(s): I50.23 - ACUTE ON CHRONIC SYSTOLIC (CONGESTIVE) HEART FAILURE (2) Pacemaker Code(s): Z95.0 - PRESENCE OF CARDIAC PACEMAKER (4) Atrial fibrillation Code(s): I48.91 - UNSPECIFIED ATRIAL FIBRILLATION Qualifiers: Atrial fibrillation type: permanent Qualified Code(s): I48.2 - Chronic atrial fibrillation (5) Osteomyelitis Code(s): M86.9 - OSTEOMYELITIS, UNSPECIFIED Qualifiers: Osteomyelitis location: foot Laterality: left (6) Diabetes mellitus Code(s): E11.9 - TYPE 2 DIABETES MELLITUS WITHOUT COMPLICATIONS Qualifiers: Diabetes mellitus type: type 2 Diabetes mellitus longterm insulin use: with longterm use Chronic kidney disease stage: stage 3 (moderate) (7) Diabetic foot ulcer Code(s): E11.621 - TYPE 2 DIABETES MELLITUS WITH FOOT ULCER; L97.509 - NON- PRESSURE CHRONIC ULCER OTH PRT UNSP FOOT W UNSP SEVERITY Qualifiers: Diabetic foot ulcer location: toe Diabetes mellitus type: type 2 Laterality: left (8) Hypertension Code(s): I10 - ESSENTIAL (PRIMARY) HYPERTENSION Qualifiers: Hypertension type: essential hypertension Qualified Code(s): I10 - Essential (primary) hypertension (9) PVD (peripheral vascular disease) Code(s): I73.9 - PERIPHERAL VASCULAR DISEASE, UNSPECIFIED (10) Acute kidney injury superimposed on chronic kidney disease Code(s): N17.9 - ACUTE KIDNEY FAILURE, UNSPECIFIED; N18.9 - CHRONIC KIDNEY DISEASE, UNSPECIFIED Assessment/Plan 03/11/2019 Echo: Normal LV size with moderate decreased LVEF, severe DENNY, bioMVR , severe TR, RVSP 40-50, mild MS/MR, pacer seen, paradoxical septal motion due to post-op state 03/11/[address]: congestion s/p MVR, pacemaker, right central venous line 1. Acute on chronic systolic heart failure improving 2. s/p bio MV replacement 3. Permanent afib not on A/c 4. Hypertensive heart disease 5. Type 2 DM 6. Acute on CKD 3 7. Chronic L Foot Ulcer/Osteomyelitis (on IV Abx, R CV line in situ, Hyperbaric O2 treatment) 8. s/p dual chamber PPM w/o interrogation in many years P: 1. Oral diuresis with monitor diuretic response, renal fxn and electrolytes and replete K, check TSH, lipid panel and Ha1c 2. Continue Toprol XL 50 qd, lisinopril 5 qd with uptitration as tolerated, eventual aldactone once renal fxn stable 3. Started Eliquis 5 bid given elevated [id number] risk score 4. OM L Foot - Continue IV Unasyn via R CV line (week 3 of 6) and wound Care 5. Eventual f/u with office for device interrogation and cardiac f/u , possible Entresto initiation 6. Counselled on diet, medication and f/u compliance, NSAID avoidance
--- NOTE | 2019-03-13 10:36 | PN ---
Teaching Attending Note Name of Resident: Sharon Simon ATTENDING PHYSICIAN STATEMENT I saw and evaluated the patient. I reviewed the resident's note and discussed the case with the resident. I agree with the resident's findings and plan as documented. SUBJECTIVE: Dyspnea resolved. No cough/sputum/hemoptysis. No fever/chills. OBJECTIVE: Afebrile, Hemodynamically Stable. Last Vital Signs Temp Pulse Resp BP Pulse Ox 98.1 F 84 20 119/76 94 L 03/13/19 10:00 03/13/19 10:00 03/13/19 10:00 03/13/19 10:03/13/19 09:00 Heart - S1, S2, RRR Lungs - good air entry bilaterally, no further basal crackles. Abdomen - Soft, non-tender. Bowel Sounds normal Extremities - LE edema, varicosities, chronic venous stasis skin changes. Laboratory Results - last 24 hr 03/12/19 03/12/19 03/12/19 11:36 16:47 21:07 WBC RBC Hgb Hct MCV MCH MCHC RDW Plt Count MPV Sodium Potassium Chloride Carbon Dioxide Anion Gap BUN Creatinine Est GFR (CKD-EPI)AfAm Est GFR (CKD-EPI)NonAf POC Glucometer 145 159 188 Random Glucose Hemoglobin A1c % Calcium Magnesium Triglycerides Cholesterol Total LDL Cholesterol HDL Cholesterol TSH 03/13/19 03/13/19 03/13/19 05:09 05:30 05:37 WBC 8.5 RBC 5.22 Hgb 15.3 Hct 46.3 MCV 88.7 MCH 29.3 MCHC 33.0 RDW 15.4 Plt Count 280 MPV 7.8 Sodium 139 Potassium 3.9 Chloride 102 Carbon Dioxide 31 Anion Gap 5 L BUN 50.5 H Creatinine 1.9 H Est GFR (CKD-EPI)AfAm 38.55 Est GFR (CKD-EPI)NonAf 33.26 POC Glucometer 132 Random Glucose 117 H Hemoglobin A1c % Calcium 8.6 Magnesium 2.3 Triglycerides 96 Cholesterol 137 Total LDL Cholesterol 91 HDL Cholesterol 38 L TSH 2.35 03/13/19 06:10 WBC RBC Hgb Hct MCV MCH MCHC RDW Plt Count MPV Sodium Potassium Chloride Carbon Dioxide Anion Gap BUN Creatinine Est GFR (CKD-EPI)AfAm Est GFR (CKD-EPI)NonAf POC Glucometer Random Glucose Hemoglobin A1c % 7.6 H Calcium Magnesium Triglycerides Cholesterol Total LDL Cholesterol HDL Cholesterol TSH Current Medications Generic Name Dose Route Start Last Admin Trade Name Freq PRN Reason Stop Dose Admin Albuterol Sulfate 1 amp 03/11/19 07:36 03/13/19 09:51 Ventolin 0.083% Nebulizer Soln - NEB 1 amp Q4H PRN Administration SHORT OF BREATH/WHEEZING Apixaban 5 mg 03/12/19 14:00 03/13/19 09:30 Eliquis - PO 5 mg BID LOUISE Administration Furosemide 40 mg 03/13/19 10:00 Lasix Injection - IVPUSH DAILY LOUISE Ampicillin Sodium/Sulbactam 100 mls @ 200 mls/hr 03/11/19 11:00 03/13/19 09: 30 Sodium 3 gm/ Sodium Chloride IVPB 200 mls/hr Q8H-IV LOUISE Administration Insulin Aspart 1 vial 03/11/19 11:00 03/13/19 06:07 Novolog Vial Sliding Scale - SQ Not Given ACHS LOUISE Protocol Insulin Detemir 40 units 03/12/19 07:00 03/13/19 06:06 Levemir Vial SQ 40 units AM LOUISE Administration Lisinopril 5 mg 03/11/19 10:30 03/13/19 09:30 Prinivil PO 5 mg DAILY LOUISE Administration Metoprolol Succinate 50 mg 03/12/19 10:00 03/13/19 09:30 Toprol Xl - PO 50 mg DAILY LOUISE Administration Potassium Chloride 10 meq 03/12/19 10:00 03/13/19 09:30 K-Dur - PO 10 meq DAILY LOUISE Administration ASSESSMENT AND PLAN: 78 year old male with HTN, DM 2, CKD 3, Chronic L Foot Ulcer/Osteomyelitis (on IV Abx, R CV line in situ, Hyperbaric O2 treatment), Valvular Heart Disease s/p MV replacement, Atrial fibrillation (not on AC), s/p PPM, presents with increasing SOB, worse on exertion. 1. Acute Systolic CHF Exacerbation Congestive changes on Chest CT BNP 2817, TropI neg, ECG - Afib without acute changes. Echo - Global hypokinesis, LV systolic function moderately reduced, LA severely dilated, Bioprosthetic MV, RV syst pressure 40-50mmHg, Severe TR. Improved with IV Lasix. Cardiology consulted - Continue BB, BLANCA-I. For possible initiation on Entresto as out-patient. IV Lasix held today due to CHELSEA - further recommendations as per Cardiology. Daily weight, I/Os. 2. Atrial Fibrillation - rate controlled on Toprol XL 50mg Started on AC with Eliquis given CHADSVASC score. 3. CHELSEA on CKD 3 - sec to IV Lasix diuresis. IV Lsix held today. 3. OM L Foot Continue IV Unasyn via R CV line (week 3 of 6) Leukocytosis resolved. Wound Care 4. DM 2 - A1C 7.6 - reports running out of home insulin. Normally on Glargine 40 units in AM - resumed, along with sliding scale. 5. HTN - Continue Lisinopril and Toprol. DVT Px - Eliquis.
--- NOTE | 2019-03-13 13:18 | PN ---
Physical Exam: SUBJECTIVE: Patient seen this morning and reports he is feeling much better. Patient had no acute events overnight. OBJECTIVE: Vital Signs Temperature 98.1 F 03/13/19 10:00 Pulse Rate 84 03/13/19 10:00 Respiratory Rate 20 03/13/19 10:00 Blood Pressure 119/76 03/13/19 10:00 O2 Sat by Pulse Oximetry (%) 94 L 03/13/19 09:00 GENERAL: The patient is awake, alert, and fully oriented, in no acute distress. HEAD: Normal with no signs of trauma. EYES: PERRL, extraocular movements intact ENT: moist mucous membranes. LUNGS: mild crackles at bases, no wheezing or rhonci HEART: Regular rate and rhythm, S1, S2 without murmur, rub or gallop. ABDOMEN: Soft, nontender, nondistended, normoactive bowel sounds, EXTREMITIES:1+ pitting edema SKIN: Warm, dry, normal turgor, no rashes or lesions noted CBC, BMP 03/13/19 05:30 03/13/19 05:37 Active Medications Albuterol Sulfate (Ventolin 0.083% Nebulizer Soln -) 1 amp NEB Q4H PRN PRN Reason: SHORT OF BREATH/WHEEZING Last Admin: 03/13/19 09:51 Dose: 1 amp Apixaban (Eliquis -) 5 mg PO BID [facility] Last Admin: 03/13/19 09:30 Dose: 5 mg Furosemide (Lasix -) 20 mg PO DAILY [facility] Ampicillin Sodium/Sulbactam (Sodium 3 gm/ Sodium Chloride) 100 mls @ 200 mls/ hr IVPB Q8H-IV LOUISE Last Admin: 03/13/19 09:30 Dose: 200 mls/hr Insulin Aspart (Novolog Vial Sliding Scale -) 1 vial SQ ACHS [facility]; Protocol Last Admin: 03/13/19 11:52 Dose: 2 units Insulin Detemir (Levemir Vial) 40 units SQ AM [facility] Last Admin: 03/13/19 06:06 Dose: 40 units Lisinopril (Prinivil) 5 mg PO DAILY [facility] Last Admin: 03/13/19 09:30 Dose: 5 mg Metoprolol Succinate (Toprol Xl -) 50 mg PO DAILY [facility] Last Admin: 03/13/19 09:30 Dose: 50 mg Potassium Chloride (K-Dur -) 10 meq PO DAILY [facility] Last Admin: 03/13/19 09:30 Dose: 10 meq ASSESSMENT/PLAN: Patient is a 78 y/o male with a history of HTN, DM, diabetic foot wound, afib, who is admitted for SOB, likely 2/2 to new CHF. #CHF, systolic - Echo: Normal LV size with moderate decreased LVEF, severe DENNY, bioMVR, severe TR, RVSP 40-50, mild MS/MR, pacer seen, paradoxical septal motion due to post-op state - Chest CT: congestion s/p MVR, pacemaker, right central venous case - continue lasix 40 IV daily - monitor I's and O's - metoprolol XL 50 daily, lisinopril 5 daily, will begin aldactone once renal function stable - patient to f/u with cardio as an outpatient #afib - begin elliquis 5 mg BID - CHADSVASC 4 - continue metorprolol - patient has a positive hx of GI bleeding, risk of stroke> GI bleed, will continue to monitor closely and discussed with PCP #DM - SS - levemir 40 units - A1C 7.6 #CKD 3 - Cr 1.9 - darlene 2/2 to lasix, will change to po lasix - Cr in 10.18 #hypothyroidism hx - TSH 2.35 #osteomyelitis - continue unasyn 3gm q8h - through PICC line - wound care consulted #DVT ppx - on eliquis FEN - continue diabetic diet - on K dur, f/u lytes Dispo: monitor clinically on tele - spoke to PCP Dr. Rebollar, patient is non compliant, discussed patient is supposed to be on anticoagulation and has a long hx of CHF - number [phone], fax: [phone] Visit type - Emergency Visit Emergency Visit: No - New Patient This patient is new to me today: No - Critical Care Critical Care patient: No
--- NOTE | 2019-03-13 16:17 | CONSULT ---
- Consultation REQUESTING PROVIDER: CONSULT REQUEST: We have been asked to surgically evaluate this patient for Left foot diabetic wound PCP:Juilo Camarillo MD HISTORY OF PRESENT ILLNESS: Vascular team was consulted for evaluation of his Lt foot diabetic ulcer. Pt states that it has been present for a couple years. Pt states that he sees Dr. Reid in the wound care clinic for his wound care, and that he last saw him a couple weeks ago. Pt denies any history of vascular disease or surgery. Pt states that he used to smoke cigars but quite 20 years ago. PMHx: DM, HTN, HLD, CHF Home Medications Medication Instructions Recorded Furosemide [Lasix -] 40 mg PO BID 02/13/19 Metformin HCl [Glucophage] 500 mg PO DAILY 02/13/19 Metoprolol Succinate [Toprol XL -] 50 mg PO DAILY 02/13/19 Potassium Chloride [K-Dur -] 10 meq PO DAILY 02/13/19 Ampicillin Na/Sulbactam Na [Unasyn 3 gm IVPB Q8H-IV 42 Days vial 02/24/19 -] Insulin Glargine,Hum.rec.anlog 40 unit SQ AM #1 vial 02/24/19 [Lantus] Lisinopril [Prinivil] 5 mg PO DAILY #30 tablet 02/24/19 Becaplermin [Regranex] 15 gm TP DAILY #1 gel..gram. 02/28/19 Isosorbide Mononitrate [Imdur -] 120 mg PO BID 03/12/19 Levothyroxine [Synthroid -] 25 mcg PO DAILY 03/12/19 Allergies Allergy/AdvReac Type Severity Reaction Status Date / Time morphine Allergy Verified 03/11/19 04:48 PHYSICAL EXAM: GENERAL: Awake, alert, and fully oriented, in no acute distress. HEAD: Normal with no signs of trauma. EYES: PERRL, sclera anicteric, conjunctiva clear. NECK: Normal ROM, supple without lymphadenopathy, JVD, or masses. Left le+ DP pulse, warm, well-perfused. No calf tenderness. +1 edema, 1cm x 0.5cm ulcer on plantar aspect of foot over 1st PIP joint. NEUROLOGICAL: Normal speech, gait not observed. PSYCH: Cooperative. Good eye contact. Appropriate mood and affect. SKIN: Warm, dry, normal turgor, no rashes or lesions noted. Vital Signs Temperature 97.9 F 03/13/19 14:00 Pulse Rate 77 03/13/19 14:00 Respiratory Rate 20 03/13/19 10:00 Blood Pressure 110/57 L 03/13/19 14:00 O2 Sat by Pulse Oximetry (%) 94 L 03/13/19 09:00 Lab Results WBC 8.5 K/mm3 (4.0-10.0) 03/13/19 05:30 RBC 5.22 M/mm3 (4.00-5.60) 03/13/19 05:30 Hgb 15.3 GM/dL (11.7-16.9) 03/13/19 05:30 Hct 46.3 % (35.4-49) 03/13/19 05:30 MCV 88.7 fl (80-96) 03/13/19 05:30 MCHC 33.0 g/dl (32.0-35.9) 03/13/19 05:30 RDW 15.4 % (11.9-15.9) 03/13/19 05:30 Plt Count 280 K/MM3 (134-434) 03/13/19 05:30 Sodium 139 mmol/L (136-145) 03/13/19 05:37 Potassium 3.9 mmol/L (3.5-5.1) 03/13/19 05:37 Chloride 102 mmol/L (98-107) 03/13/19 05:37 Carbon Dioxide 31 mmol/L (21-32) 03/13/19 05:37 Anion Gap 5 MMOL/L (8-16) L 03/13/19 05:37 BUN 50.5 mg/dL (7-18) H 03/13/19 05:37 Creatinine 1.9 mg/dL (0.55-1.3) H 03/13/19 05:37 Random Glucose 117 mg/dL (74-106) H 03/13/19 05:37 Calcium 8.6 mg/dL (8.5-10.1) 03/13/19 05:37 Problem List - Problems (1) Diabetic foot ulcer Assessment/Plan: Plan -pt shows no signs of any vascular issues with his foot, or need for vascular intervention at this time. -recommend follow up with Dr. Reid for wound care Code(s): E11.621 - TYPE 2 DIABETES MELLITUS WITH FOOT ULCER; L97.509 - NON- PRESSURE CHRONIC ULCER OTH PRT UNSP FOOT W UNSP SEVERITY Qualifiers: Diabetic foot ulcer location: toe Diabetes mellitus type: type 2 Laterality: left
--- NOTE | 2019-03-13 16:28 | CONSULT ---
Consult Consult Specialty:: Podiatry Reason for Consultation:: wound left big toe - History Source History Provided By: Medical Record - Past Medical History Cardio/Vascular: Yes: AFIB, HTN - Past Surgical History Past Surgical History: Yes: Permanent Pacemaker, Valve Replacement - Alcohol/Substance Use Hx Alcohol Use: No - Smoking History Smoking history: Never smoked Have you smoked in the past 12 months: No Aproximately how many cigarettes per day: 0 Home Medications - Allergies Allergies/Adverse Reactions: Allergies Allergy/AdvReac Type Severity Reaction Status Date / Time morphine Allergy Verified 03/11/19 04:48 - Home Medications Home Medications: Ambulatory Orders Furosemide [Lasix -] 40 mg PO BID 02/13/19 Metformin HCl [Glucophage] 500 mg PO DAILY 02/13/19 Metoprolol Succinate [Toprol XL -] 50 mg PO DAILY 02/13/19 Potassium Chloride [K-Dur -] 10 meq PO DAILY 02/13/19 Ampicillin Na/Sulbactam Na [Unasyn -] 3 gm IVPB Q8H-IV 42 Days vial 02/24/19 Insulin Glargine,Hum.rec.anlog [Lantus] 40 unit SQ AM #1 vial 02/24/19 Lisinopril [Prinivil] 5 mg PO DAILY #30 tablet 02/24/19 Becaplermin [Regranex] 15 gm TP DAILY #1 gel..gram. 02/28/19 Isosorbide Mononitrate [Imdur -] 120 mg PO BID 03/12/19 Levothyroxine [Synthroid -] 25 mcg PO DAILY 03/12/19 Physical Exam Vital Signs: Vital Signs Temperature 97.9 F 03/13/19 14:00 Pulse Rate 77 03/13/19 14:00 Respiratory Rate 20 03/13/19 10:00 Blood Pressure 110/57 L 03/13/19 14:00 O2 Sat by Pulse Oximetry (%) 94 L 03/13/19 09:00 Extremities: Yes: Other (+om, +grade 3 wound, -drainage,) Labs: CBC, BMP 03/13/19 05:30 03/13/19 05:37 Assessment/Plan om varicose veins grade 3 wound left big toe Patient bought Regranex to hospital. Apply daily with moist dressing to wound left big toe. xray f/u om. will follow. abx as per id.
[2019-03-14] MEDS: AMPICILLIN NA/SULBACTAM NA 3 GM in SODIUM CHLORIDE 100 ML IVPB SCH ×2 (01:06→09:41)
[2019-03-14] MEDS: ALBUTEROL SO4 0.083% IH SOL 2.5 MG/3 ML VIAL.NEB. NEB PRN (02:37)
[2019-03-14 06:05] VITALS: TEMP 98.1
[2019-03-14] MEDS: INSULIN SLIDING SCALE (NOVOLOG) 1 VIAL SQ SCH ×2 (06:18→12:23)
[2019-03-14] MEDS: INSULIN (LEVEMIR) 100 UNITS/ML UNITS SQ SCH (06:19)
[2019-03-14 07:35] LABS: BLOOD UREA NITROGEN 48.6 mg/dL (7-18); CREATININE 1.6 mg/dL (0.55-1.3); POTASSIUM 4.2 mmol/L (3.5-5.1)
[2019-03-14] MEDS ORDERED: PT OWN MED DRAWER 7, Y5N ONE (08:13)
[2019-03-14 08:52] VITALS: BP 132/79; PULSE 84
[2019-03-14] MEDS: POTASSIUM CHLORIDE TABS 10 MEQ TABLET.ER (FP) PO SCH (09:41)
[2019-03-14] MEDS: LISINOPRIL 5 MG TABLET (FP) PO SCH (09:41)
[2019-03-14] MEDS: APIXABAN 5 MG TABLET PO SCH (09:41)
[2019-03-14] MEDS ORDERED: FUROSEMIDE 20 MG TABLET (FP) PO SCH (10:00)
--- NOTE | 2019-03-14 10:53 | PN ---
Progress Note, Physician History of Present Illness: SOB with exertion, bilateral LE edema resolved with diuresis and improved BP control, renal fxn stabilized to baseline. [employer] dual chamber pacemaker device interrogatin confirms end of service until January, both leads with very low impedances suggestive of insulation breach, last interrogation 12/2014. 99% afib. - Current Medication List Current Medications: Active Medications Albuterol Sulfate (Ventolin 0.083% Nebulizer Soln -) 1 amp NEB Q4H PRN PRN Reason: SHORT OF BREATH/WHEEZING Last Admin: 03/14/19 02:37 Dose: 1 amp Apixaban (Eliquis -) 5 mg PO BID [facility] Last Admin: 03/14/19 09:41 Dose: 5 mg Furosemide (Lasix -) 20 mg PO DAILY [facility] Last Admin: 03/14/19 09:41 Dose: 20 mg Ampicillin Sodium/Sulbactam (Sodium 3 gm/ Sodium Chloride) 100 mls @ 200 mls/ hr IVPB Q8H-IV [facility] Last Admin: 03/14/19 09:41 Dose: 200 mls/hr Insulin Aspart (Novolog Vial Sliding Scale -) 1 vial SQ ACHS [facility]; Protocol Last Admin: 03/14/19 06:18 Dose: Not Given Insulin Detemir (Levemir Vial) 40 units SQ AM [facility] Last Admin: 03/14/19 06:19 Dose: 40 units Lisinopril (Prinivil) 5 mg PO DAILY [facility] Last Admin: 03/14/19 09:41 Dose: 5 mg Metoprolol Succinate (Toprol Xl -) 50 mg PO DAILY [facility] Last Admin: 03/14/19 09:41 Dose: 50 mg Non-Formulary Medication (Patient's Own Med) 1 each PO DAILY [facility] Potassium Chloride (K-Dur -) 10 meq PO DAILY [facility] Last Admin: 03/14/19 09:41 Dose: 10 meq - Objective Vital Signs: Vital Signs Temperature 98.1 F 03/14/19 08:49 Pulse Rate 84 03/14/19 08:49 Respiratory Rate 20 03/14/19 08:52 Blood Pressure 132/79 03/14/19 08:49 O2 Sat by Pulse Oximetry (%) 96 03/14/19 08:52 Constitutional: Yes: No Distress, Calm Neck: Yes: Supple Cardiovascular: Yes: Pulse Irregular Respiratory: Yes: Regular, Diminished Gastrointestinal: Yes: Normal Bowel Sounds, Soft Edema: Yes Edema: LLE: Trace, RLE: Trace Integumentary: Yes: Venous Stasis Changes Labs: CBC, BMP 03/13/19 05:30 03/14/19 05:23 - ....Imaging EKG: Report Reviewed (Tele: Rate-controlled afib) Problem List - Problems (1) Acute on chronic systolic (congestive) heart failure Code(s): I50.23 - ACUTE ON CHRONIC SYSTOLIC (CONGESTIVE) HEART FAILURE (2) Pacemaker Code(s): Z95.0 - PRESENCE OF CARDIAC PACEMAKER (4) Atrial fibrillation Code(s): I48.91 - UNSPECIFIED ATRIAL FIBRILLATION Qualifiers: Atrial fibrillation type: permanent Qualified Code(s): I48.2 - Chronic atrial fibrillation (5) Osteomyelitis Code(s): M86.9 - OSTEOMYELITIS, UNSPECIFIED Qualifiers: Osteomyelitis location: foot Laterality: left (6) Diabetes mellitus Code(s): E11.9 - TYPE 2 DIABETES MELLITUS WITHOUT COMPLICATIONS Qualifiers: Diabetes mellitus type: type 2 Diabetes mellitus remote computer terminal operator insulin use: with skilled nursing use Chronic kidney disease stage: stage 3 (moderate) (7) Diabetic foot ulcer Code(s): E11.621 - TYPE 2 DIABETES MELLITUS WITH FOOT ULCER; L97.509 - NON- PRESSURE CHRONIC ULCER OTH PRT UNSP FOOT W UNSP SEVERITY Qualifiers: Diabetic foot ulcer location: toe Diabetes mellitus type: type 2 Laterality: left (8) Hypertension Code(s): I10 - ESSENTIAL (PRIMARY) HYPERTENSION Qualifiers: Hypertension type: essential hypertension Qualified Code(s): I10 - Essential (primary) hypertension (9) PVD (peripheral vascular disease) Code(s): I73.9 - PERIPHERAL VASCULAR DISEASE, UNSPECIFIED (10) Acute kidney injury superimposed on chronic kidney disease Code(s): N17.9 - ACUTE KIDNEY FAILURE, UNSPECIFIED; N18.9 - CHRONIC KIDNEY DISEASE, UNSPECIFIED Assessment/Plan 03/11/2019 Echo: Normal LV size with moderate decreased LVEF, severe DENNY, bioMVR , severe TR, RVSP 40-50, mild MS/MR, pacer seen, paradoxical septal motion due to post-op state 03/11/[address]: congestion s/p MVR, pacemaker, right central venous line 1. Acute on chronic systolic heart failure improving 2. s/p bio MV replacement 3. Permanent afib now on Eliquis 4. Hypertensive heart disease 5. Type 2 DM 6. Acute on CKD 3 resolved back to baseline 7. Chronic grade 3 wound left toe/Osteomyelitis (on IV Abx, R CV line in situ, Hyperbaric O2 treatment) 8. s/p dual chamber [employer] PPM, interrogation shows device at end of service with markedly low lead impedance suspcious of insulation breach P: 1. Lasix 20 po qd with monitor diuretic response, renal fxn and electrolytes and replete K 2. Continue Toprol XL 50 qd, increase lisinopril 5 bid with uptitration as tolerated, eventual aldactone once renal fxn stable 3. Started Eliquis 5 bid given elevated [id number] risk score 4. OM L Foot - Continue IV Unasyn via R CV line (week 3 of 6) and wound Care 5. Eventual f/u with office for device/lead extraction and cardiac f/u , possible Entresto initiation 6. Counselled on diet, medication and f/u compliance, NSAID avoidance
[2019-03-14] MEDS ORDERED: INSULIN (NOVOLOG) ASPART 100 UNITS/ML 10ML VIAL ONE (12:16)
--- NOTE | 2019-03-14 12:18 | PN ---
Teaching Attending Note Name of Resident: Sharon Simon ATTENDING PHYSICIAN STATEMENT I saw and evaluated the patient. I reviewed the resident's note and discussed the case with the resident. I agree with the resident's findings and plan as documented. SUBJECTIVE: SOB resolved. No CP/cough/sputum/hemoptysis. No fever/chills. OBJECTIVE: Afebrile, Hemodynamically Stable. Last Vital Signs Temp Pulse Resp BP Pulse Ox 98.1 F 84 20 132/79 96 03/14/19 08:49 03/14/19 08:49 03/14/19 08:52 03/14/19 08:49 03/14/19 08:52 Heart - S1, S2, RRR Lungs - good air entry bilaterally, no further basal crackles. Abdomen - Soft, non-tender. Bowel Sounds normal Extremities - LE edema, varicosities, chronic venous stasis skin changes. L foot ulcer. Laboratory Results - last 24 hr 03/13/19 03/13/19 03/14/19 16:45 21:32 05:23 Sodium 140 Potassium 4.2 Chloride 104 Carbon Dioxide 29 Anion Gap 6 L BUN 48.6 H Creatinine 1.6 H Est GFR (CKD-EPI)AfAm 47.46 Est GFR (CKD-EPI)NonAf 40.95 POC Glucometer 160 212 Random Glucose 110 H Calcium 9.0 03/14/19 05:59 Sodium Potassium Chloride Carbon Dioxide Anion Gap BUN Creatinine Est GFR (CKD-EPI)AfAm Est GFR (CKD-EPI)NonAf POC Glucometer 131 Random Glucose Calcium Current Medications Generic Name Dose Route Start Last Admin Trade Name Freq PRN Reason Stop Dose Admin Albuterol Sulfate 1 amp 03/11/19 07:36 03/14/19 02:37 Ventolin 0.083% Nebulizer Soln - NEB 1 amp Q4H PRN Administration SHORT OF BREATH/WHEEZING Apixaban 5 mg 03/12/19 14:00 03/14/19 09:41 Eliquis - PO 5 mg BID LOUISE Administration Furosemide 20 mg 03/14/19 10:00 03/14/19 09:41 Lasix - PO 20 mg DAILY [facility]OUISE Administration Ampicillin Sodium/Sulbactam 100 mls @ 200 mls/hr 03/11/19 11:00 03/14/19 09: 41 Sodium 3 gm/ Sodium Chloride IVPB 200 mls/hr Q8H-IV LOUISE Administration Insulin Aspart 1 vial 03/11/19 11:00 03/14/19 06:18 Novolog Vial Sliding Scale - SQ Not Given [facility] Protocol Insulin Detemir 40 units 03/12/19 07:00 03/14/19 06:19 Levemir Vial SQ 40 units AM [facility] Administration Lisinopril 5 mg 03/11/19 10:30 03/14/19 09:41 Prinivil PO 5 mg DAILY [facility] Administration Metoprolol Succinate 50 mg 03/12/19 10:00 03/14/19 09:41 Toprol Xl - PO 50 mg DAILY [facility] Administration Non-Formulary Medication 1 each 03/14/19 10:00 Patient's Own Med PO DAILY [facility] Potassium Chloride 10 meq 03/12/19 10:00 03/14/19 09:41 K-Dur - PO 10 meq DAILY [facility] Administration ASSESSMENT AND PLAN: 78 year old male with HTN, DM 2, CKD 3, Chronic L Foot Ulcer/Osteomyelitis (on IV Abx, R CV line in situ, Hyperbaric O2 treatment), Valvular Heart Disease s/p MV replacement, Atrial fibrillation (not on AC), s/p PPM, presents with increasing SOB, worse on exertion. 1. Acute Systolic CHF Exacerbation - improved with Lasix diuresis. Congestive changes on Chest CT BNP 2817, TropI neg, ECG - Afib without acute changes. Echo - Global hypokinesis, LV systolic function moderately reduced, LA severely dilated, Bioprosthetic MV, RV syst pressure 40-50mmHg, Severe TR. Cardiology consulted - Continue BB, BLANCA-I. For possible initiation on Entresto as out-patient. IV Lasix transitioned to oral Lasix. For out-patient Cardiology follow up and Renal function testing as out-patient. 2. Atrial Fibrillation - rate controlled on Toprol XL 50mg Started on AC with Eliquis given CHADSVASC score. 3. CHELSEA on CKD 3 - sec to IV Lasix diuresis - renal function improving. IV Lasix transitioned to oral Lasix. 3. OM L Foot Continue IV Unasyn via R CV line (week 3 of 6) Leukocytosis resolved. Wound Care/ID follow up as out-patient. 4. DM 2 - A1C 7.6 - reports running out of home insulin. Normally on Glargine 40 units in AM - resumed, along with sliding scale. 5. HTN - Continue Lisinopril (dose increased) and Toprol. DVT Px - on Eliquis. Dispo - Medically stable for discharge on oral LAsix with out-patient Cardio follow up.
--- NOTE | 2019-03-14 13:57 | DS ---
Physical Exam: SUBJECTIVE: Patient seen and examined, no complaints and no events overnight. OBJECTIVE: Vital Signs Temperature 98.1 F 03/14/19 08:49 Pulse Rate 84 03/14/19 08:49 Respiratory Rate 20 03/14/19 08:52 Blood Pressure 132/79 03/14/19 08:49 O2 Sat by Pulse Oximetry (%) 96 03/14/19 08:52 PHYSICAL EXAM GENERAL: The patient is awake, alert, and fully oriented, in no acute distress. HEAD: Normal with no signs of trauma. EYES: PERRL, extraocular movements intact ENT: moist mucous membranes. LUNGS: mild crackles at bases, no wheezing or rhonci HEART: Regular rate and rhythm, S1, S2 without murmur, rub or gallop. ABDOMEN: Soft, nontender, nondistended, normoactive bowel sounds, EXTREMITIES:1+ pitting edema SKIN: Warm, dry, normal turgor, no rashes or lesions noted LABS Laboratory Results - last 24 hr 03/13/19 03/13/19 03/14/19 16:45 21:32 05:23 Sodium 140 Potassium 4.2 Chloride 104 Carbon Dioxide 29 Anion Gap 6 L BUN 48.6 H Creatinine 1.6 H Est GFR (CKD-EPI)AfAm 47.46 Est GFR (CKD-EPI)NonAf 40.95 POC Glucometer 160 212 Random Glucose 110 H Calcium 9.0 03/14/19 03/14/19 05:59 12:15 Sodium Potassium Chloride Carbon Dioxide Anion Gap BUN Creatinine Est GFR (CKD-EPI)AfAm Est GFR (CKD-EPI)NonAf POC Glucometer 131 202 Random Glucose Calcium HOSPITAL COURSE: Date of Admission:03/11/19 Patient is a 78 y/o male with a history of HTN, DM, diabetic foot wound, afib, who is admitted for SOB, likely 2/2 to CHF exacerbation. Patient was given lasix and he clinically improved. As a result patients creatinine function increased. IV lasix was held and function returned to normal. Patient continue on outpatient dose of lasix 40 po daily. Patient instructed to f/u with Cardiology as an outpatient. Patient has afib but did not take anticoagulation as an outpatient. Patient started on eliquis 5 BID. Spoke to patients PCP who states patient is supposed to be on AC. Patient has a long hx on noncompliance and does not take many of his medications. Patient was diagnosed with osteomyelitis 3 weeks ago. he currently has a PICC line and received Unasyn through the line. during the course of his stay here. The patient will finish his treatment as an outpatient. Patient will follow up with Podiatry and wound care for his infection. Chest CT: congestion s/p MVR, pacemaker, right central venous case Echo: Normal LV size with moderate decreased LVEF, severe DENNY, bioMVR, severe TR , RVSP 40-50, mild MS/MR, pacer seen, paradoxical septal motion due to post-op state Date of Discharge: 03/14/19 Minutes to complete discharge: 45 Discharge Summary Reason For Visit: NEW ONSET OF CONGESTIVE HEART FAILURE Current Active Problems Acute kidney injury superimposed on chronic kidney disease (Acute) Acute on chronic systolic (congestive) heart failure (Acute) Atrial fibrillation (Acute) Fluid overload (Acute) Pacemaker (Acute) S/P mitral valve replacement with bioprosthetic valve (Acute) Condition: Improved - Instructions Diet, Activity, Other Instructions: You were admitted to the hospital for shortness of breath. While you were here we optimized your medications and your shortness of breath has resolved. For your CHF please take: Lasix 40 mg by mouth once a day Toprolol XL50 mg by mouth once a day Lisinopril 5 mg by mouth twice a day For your atrial fibrilation please take: Eliquis 5 mg by mouth twice a day For your infection in your foot please continue: Unasyn 3gm through the PICC line every 8 hours until you complete 6 weeks of treatment Please continue your home medications as prescribed. Within one week please have lab work drawn (CMP) to monitor your kidney function. You can have this done when you follow up with your primary care physician within one week. Please have the results faxed to Dr. Arias. You should make an appointment to follow up with Dr. Arias, the diamond finishing supervisor, within one week. 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 Return to the Emergency Department if you have any nausea, chest pain, shortness of breath, fevers, or chills. Referrals: Aravind Rebollar [Primary Care Provider] - 1 Week Pankaj Barboza MD [Non Staff, Medical] - 1 Week Catarino Arias MD [Staff Physician] - 1 Week Corey Reid DPM [Staff Physician] - 1 Week Disposition: HOME - Home Medications Comprehensive Discharge Medication List: Ambulatory Orders Metformin HCl [Glucophage] 500 mg PO DAILY 02/13/19 Potassium Chloride [K-Dur -] 10 meq PO DAILY 02/13/19 Ampicillin Na/Sulbactam Na [Unasyn -] 3 gm IVPB Q8H-IV 42 Days vial 02/24/19 Becaplermin [Regranex] 15 gm TP DAILY #1 gel..gram. 02/28/19 Isosorbide Mononitrate [Imdur -] 120 mg PO BID 03/12/19 Ampicillin Na/Sulbactam Na [Unasyn -] 3 gm IVPB Q8H-IV vial 03/14/19 Apixaban [Eliquis -] 5 mg PO BID #60 tablet 03/14/19 Furosemide [Lasix -] 40 mg PO DAILY #30 tablet 03/14/19 Insulin Glargine,Hum.rec.anlog [Lantus] 40 unit SQ AM #1 vial 03/14/19 Lisinopril 5 mg PO BID #30 tablet 03/14/19 Metoprolol Succinate [Toprol XL -] 50 mg PO DAILY #30 tab.sr.24h 03/14/19 This patient is new to me today: No Emergency Visit: No Critical Care patient: No - Discharge Referral Referred to [facility] No
== END 2019-03-14 14:15 | disposition home or self-care (01) | DRG 291 ==
LOC: JER 04:39 → JERBED 06:46 → J4W 10:28
PROVIDERS: ADMIT Internal Medicine
DX: I13.0 Hypertensive heart and chronic kidney disease with heart failure and stage 1 through stage 4 chronic kidney disease, or unspecified chronic kidney disease (principal); I50.23 Acute on chronic systolic (congestive) heart failure; M86.9 Osteomyelitis, unspecified; N17.9 Acute kidney failure, unspecified; L97.429 Non-pressure chronic ulcer of left heel and midfoot with unspecified severity; E11.621 Type 2 diabetes mellitus with foot ulcer; E11.69 Type 2 diabetes mellitus with other specified complication; I48.2 Chronic atrial fibrillation; N18.3 Chronic kidney disease, stage 3 (moderate); E11.22 Type 2 diabetes mellitus with diabetic chronic kidney disease; E87.70 Fluid overload, unspecified; Z95.0 Presence of cardiac pacemaker; E66.9 Obesity, unspecified; Z68.35 Body mass index [BMI] 35.0-35.9, adult; Z79.4 Long term (current) use of insulin; D72.829 Elevated white blood cell count, unspecified
CPT/HCPCS: 36415; 71045-TC-FY; 71275-TC; 73630-TC-LT; 80048; 80053; 80061; 82550; 82553; 82962; 83036; 83721; 83735; 83880; 84100; 84443; 84484; 85025; 85027; 93005; 93010; 93306-TC; 94640; 97116-GP; 97161-GP; 99282-25; J1644

== ENCOUNTER → 2019-04-14 | Day surgery (SDC) | payer OTHER | END | disposition home or self-care (01) | LOC: JRADIR 11:34 | PROVIDERS: ATTEND Internal Medicine Infectious Disease | PROC: 05PYX3Z Removal of Infusion Device from Upper Vein, External Approach (ICD-10-PCS; principal; 2019-04-14) | DX: Z45.2 Encounter for adjustment and management of vascular access device (principal) | CPT/HCPCS: 36589 ==

== ENCOUNTER 2019-06-01 02:05 | Emergency (ER) | payer OTHER ==
[2019-06-01 02:15] VITALS: PULSE 94; TEMP 97.6; BMI 34.4
--- NOTE | 2019-06-01 02:30 | PDOC ---
Attending Attestation - Resident Resident Name: Irvin Campos - ED Attending Attestation I have performed the following: I have examined & evaluated the patient, The case was reviewed & discussed with the resident, I agree w/resident's findings & plan - HPI HPI: 06/02/19 03:23 Mr. Encarnacion is a 79 y/o man with hx HTN, IDDM, healing wound followed by hyperbarics, afib on eliquis, CKD, CHF, pacemaker presenting with bleeding from the umbilicus. He reports feeling his normal self, when he laid down to go to bed at approx 0000. As soon as he got in bed, he noticed blood at his umbilicus and decided to seek evaluation in the ED. He denies any other symptoms, and reports that had he not noticed the blood he would not have felt anything unusual. He denies any fevers, chills, fatigue, night sweats, abdominal pain, chest pain, shortness of breath, dizziness, vertigo, headache. - Physicial Exam PE: 06/02/19 03:23 Pt has no abd pain and no discomfort. He has a small abrasion in his umbilicus over his laparoscopic surg scar. Minimal blood oozing. Pt has normal exam. - Medical Decision Making 06/02/19 03:24 Pt's umbilicus was washed with peroxide and surgicel placed over the tiny abrasion in the belly button. Pt will be given empiric therapy of keflex for the skin wound to prevent infection. Pt will see his docs on Sunday.
--- NOTE | 2019-06-01 02:49 | PDOC ---
History of Present Illness <Connie Quinones - Last Filed: 06/01/19 04:09> - General History Source: Patient - History of Present Illness Initial Comments: 06/01/19 06:55 Mr. Encarnacion is a 79 y/o man with hx HTN, IDDM, healing wound followed by hyperbarics, afib on eliquis, CKD, CHF, pacemaker presenting with bleeding from the umbilicus. He reports feeling his normal self, when he laid down to go to bed at approx 0000. As soon as he got in bed, he noticed blood at his umbilicus and decided to seek evaluation in the ED. He denies any other symptoms, and reports that had he not noticed the blood he would not have felt anything unusual. He denies any fevers, chills, fatigue, night sweats, abdominal pain, chest pain, shortness of breath, dizziness, vertigo, headache. <Irvin Campos - Last Filed: 06/01/19 07:01> - General Chief Complaint: Blood Pressure Problem Stated Complaint: BELLY BUTTON BLEEDING Time Seen by Provider: 06/01/19 02:29 Past History <Connie Quinones - Last Filed: 06/01/19 04:09> - Past Medical History Anemia: No Asthma: No Cancer: No Cardiac Disorders: Yes (Afib- on eliquis) CVA: No COPD: No CHF: No Dementia: No Diabetes: Yes GI Disorders: Yes Disorders: No HTN: Yes Hypercholesterolemia: No Liver Disease: No Seizures: No Thyroid Disease: No - Surgical History Abdominal Surgery: Yes (hernia repair) Appendectomy: Yes Cardiac Surgery: Yes (pacemaker,valve repair) Cholecystectomy: No GI Surgery: Yes (colon resection) Lung Surgery: No Neurologic Surgery: No Orthopedic Surgery: Yes - Immunization History Immunization Up to Date: No - Suicide/Smoking/Psychosocial Hx Smoking Status: No Smoking History: Never smoked Have you smoked in the past 12 months: No Number of Cigarettes Smoked Daily: 0 Hx Alcohol Use: No Drug/Substance Use Hx: No Substance Use Type: None Hx Substance Use Treatment: No <Irvin Campos - Last Filed: 06/01/19 07:01> - Past Medical History Allergies/Adverse Reactions: Allergies Allergy/AdvReac Type Severity Reaction Status Date / Time morphine Allergy Verified 06/01/19 02:15 Home Medications: Ambulatory Orders Metformin HCl [Glucophage] 500 mg PO DAILY 02/13/19 Potassium Chloride [K-Dur -] 10 meq PO DAILY 02/13/19 Becaplermin [Regranex] 15 gm TP DAILY #1 gel..gram. 02/28/19 Isosorbide Mononitrate [Imdur -] 120 mg PO BID 03/12/19 Apixaban [Eliquis -] 5 mg PO BID #60 tablet 03/14/19 Furosemide [Lasix -] 40 mg PO DAILY #30 tablet 03/14/19 Insulin Glargine,Hum.rec.anlog [Lantus] 40 unit SQ AM #1 vial 03/14/19 Lisinopril 5 mg PO BID #30 tablet 03/14/19 Metoprolol Succinate [Toprol XL -] 50 mg PO DAILY #30 tab.sr.24h 03/14/19 Cephalexin Monohydrate [Keflex -] 500 mg PO BID 7 Days #14 capsule 06/01/19 Review of Systems - Review of Systems Able to Perform ROS?: Yes Comments:: 06/01/19 07:00 ROS: GENERAL/CONSTITUTIONAL: No fever or chills. No weakness. HEAD, EYES, EARS, NOSE AND THROAT: No change in vision. No ear pain or discharge. No sore throat. CARDIOVASCULAR: No chest pain or shortness of breath RESPIRATORY: No cough, wheezing, or hemoptysis. GASTROINTESTINAL: No nausea, vomiting, diarrhea or constipation. GENITOURINARY: No dysuria, frequency, or change in urination. MUSCULOSKELETAL: No joint or muscle swelling or pain. No neck or back pain. SKIN: No rash NEUROLOGIC: No headache, vertigo, loss of consciousness, or change in strength/ sensation. ENDOCRINE: No increased thirst. No abnormal weight change HEMATOLOGIC/LYMPHATIC: No anemia, easy bleeding, or history of blood clots. ALLERGIC/IMMUNOLOGIC: No hives or skin allergy. <Irvin Campos - Last Filed: 06/01/19 07:01> *Physical Exam - Vital Signs Last Vital Signs Temp Pulse Resp BP Pulse Ox 97.6 F 94 H 22 H 173/105 H 96 06/01/19 02:10 06/01/19 02:10 06/01/19 02:10 06/01/19 02:42 06/01/19 02:10 <Connie Quinones - Last Filed: 06/01/19 04:09> - Vital Signs Last Vital Signs Temp Pulse Resp BP Pulse Ox 97.6 F 94 H 22 H 173/105 H 96 06/01/19 02:10 06/01/19 02:10 06/01/19 02:10 06/01/19 02:42 06/01/19 02:10 <Irvin Campos - Last Filed: 06/01/19 07:01> ED Treatment Course - LABORATORY CBC & Chemistry Diagram: 06/01/19 03:30 06/01/19 03:30 - ADDITIONAL ORDERS Additional order review: Laboratory Results 06/01/19 06/01/19 03:30 03:30 PT with INR 11.60 INR 0.98 PTT (Actin FS) 36.1 06/01/19 03:30 RBC 5.30 MCV 89.1 MCHC 33.3 RDW 15.4 MPV 8.4 Neutrophils % 64.9 D Lymphocytes % 20.1 D Monocytes % 10.5 H Eosinophils % 4.0 D Basophils % 0.5 - Medications Given in the ED: ED Medications Discontinued Medications Generic Name Dose Route Start Last Admin Trade Name Freq PRN Reason Stop Dose Admin Cephalexin HCl 500 mg 06/01/19 03:13 06/01/19 03:35 Keflex - PO 06/01/19 03:14 500 mg ONCE ONE Administration <Connie Quinones - Last Filed: 06/01/19 04:09> - LABORATORY CBC & Chemistry Diagram: 06/01/19 03:30 06/01/19 03:30 <Irvin Campos - Last Filed: 06/01/19 07:01> *DC/Admit/Observation/Transfer - Discharge Dispostion Decision to Admit order: No <Connie Quinones - Last Filed: 06/01/19 04:09> - Discharge Dispostion Decision to Admit order: No <Irvin Campos - Last Filed: 06/01/19 07:01> Diagnosis at time of Disposition: Open wound of umbilical region with complication Qualifiers: Encounter type: initial encounter Qualified Code(s): S31.105A - Unspecified open wound of abdominal wall, periumbilic region without penetration into peritoneal cavity, initial encounter - Discharge Dispostion Disposition: HOME Condition at time of disposition: Stable - Prescriptions Prescriptions: Cephalexin Monohydrate [Keflex -] 500 mg PO BID 7 Days #14 capsule - Referrals Referrals: Aravind Rebollar [Primary Care Provider] - - Patient Instructions Printed Discharge Instructions: DI for Abrasion Additional Instructions: FOLLOW WITH YOUR GENERAL SURGEON DR. PARRY - Post Discharge Activity
[2019-06-01] MEDS ORDERED: CEPHALEXIN MONOHYDRATE 500 MG CAPSULE (UD) PO ONE (03:13)
[2019-06-01] MEDS ORDERED: CEPHALEXIN MONOHYDRATE 500 MG CAPSULE (UD) ONE (03:28)
[2019-06-01 03:52] LABS: BASO % 0.5 % (0-2.0); HEMATOCRIT 47.3 % (35.4-49); HEMOGLOBIN 15.7 GM/dL (11.7-16.9); LYMPH % 20.1 % (8-40); MCH 29.7 pg (25.7-33.7); MCHC 33.3 g/dl (32.0-35.9); MEAN CELL VOLUME 89.1 fl (80-96); MEAN PLT VOLUME 8.4 fl (7.5-11.1); MONO % 10.5 % (3.8-10.2); NEUT % 64.9 % (42.8-82.8); PLATELET COUNT 255 K/MM3 (134-434); RDW 15.4 % (11.9-15.9); WHITE BLOOD COUNT 6.7 K/mm3 (4.0-10.0)
[2019-06-01 04:04] LABS: INR 0.98 (0.83-1.09); PROTHROMBIN TIME (PATIENT) 11.6 SEC (9.7-13.0)
[2019-06-01 05:07] VITALS: BP 163/105
== END 2019-06-01 05:07 | disposition home or self-care (01) ==
LOC: JER 02:05
DX: S31.105A Unspecified open wound of abdominal wall, periumbilic region without penetration into peritoneal cavity, initial encounter (principal); I25.10 Atherosclerotic heart disease of native coronary artery without angina pectoris; I13.0 Hypertensive heart and chronic kidney disease with heart failure and stage 1 through stage 4 chronic kidney disease, or unspecified chronic kidney disease; N18.9 Chronic kidney disease, unspecified; I50.9 Heart failure, unspecified; I48.91 Unspecified atrial fibrillation; Z79.01 Long term (current) use of anticoagulants; E11.22 Type 2 diabetes mellitus with diabetic chronic kidney disease; Z79.4 Long term (current) use of insulin; Z95.0 Presence of cardiac pacemaker; X58.XXXA Exposure to other specified factors, initial encounter; Y93.89 Activity, other specified; Y92.89 Other specified places as the place of occurrence of the external cause; Y99.8 Other external cause status
CPT/HCPCS: 36415; 85025; 85610; 85730; 99282-25

== ENCOUNTER 2019-09-03 10:20 | Emergency (ER) | payer OTHER ==
[2019-09-03 10:30] VITALS: BP 173/90; PULSE 80; TEMP 97.5; BMI 35.2
--- NOTE | 2019-09-03 10:46 | PDOC ---
History of Present Illness - General Chief Complaint: Pain Stated Complaint: RT WRIST INJURY Time Seen by Provider: 09/03/19 10:46 History Source: Patient Exam Limitations: No Limitations Past History - Travel Traveled outside of the country in the last 30 days: No Close contact w/someone who was outside of country & ill: No - Past Medical History Allergies/Adverse Reactions: Allergies Allergy/AdvReac Type Severity Reaction Status Date / Time morphine Allergy Verified 09/03/19 10:24 Home Medications: Ambulatory Orders Apixaban [Eliquis -] 5 mg PO BID 06/13/19 Furosemide [Lasix -] 40 mg PO DAILY 06/13/19 Isosorbide Mononitrate [Isosorbide Mononitrate ER] 60 mg PO DAILY 06/13/19 Lisinopril 5 mg PO BID 06/13/19 Metformin HCl [Glucophage] 500 mg PO BID 06/13/19 Metoprolol Succinate 50 mg PO DAILY 06/13/19 Potassium Chloride [K-Dur -] 10 meq PO DAILY 06/13/19 Spironolactone [Aldactone -] 25 mg PO DAILY 06/13/19 Insulin Glargine,Hum.rec.anlog [Toujeo Solostar] 46 unit SCJ DAILY 06/19/19 Becaplermin [Regranex] 15 gm TP DAILY #1 gel..gram. 07/31/19 Anemia: No Asthma: No Cancer: No Cardiac Disorders: Yes (Afib- on eliquis,PACEMAKER) CVA: No COPD: No CHF: No Dementia: No Diabetes: Yes GI Disorders: Yes Disorders: No HTN: Yes Hypercholesterolemia: Yes Liver Disease: No Seizures: No Thyroid Disease: No - Surgical History Abdominal Surgery: Yes (hernia repair) Appendectomy: Yes Cardiac Surgery: Yes (pacemaker,valve repair) Cholecystectomy: No GI Surgery: Yes (colon resection) Lung Surgery: No Neurologic Surgery: No Orthopedic Surgery: Yes - Immunization History Immunization Up to Date: No - Psycho Social/Smoking Cessation Hx Smoking Status: No Smoking History: Former smoker Have you smoked in the past 12 months: No Number of Cigarettes Smoked Daily: 0 Information on smoking cessation initiated: No Hx Alcohol Use: No Drug/Substance Use Hx: No Substance Use Type: None Hx Substance Use Treatment: No Review of Systems - Review of Systems Able to Perform ROS?: Yes Comments:: 09/03/19 10:57 CONSTITUTIONAL: Absent: fever, chills, diaphoresis, generalized weakness, malaise, loss of appetite HEENT: Absent: rhinorrhea, nasal congestion, throat pain, throat swelling, difficulty swallowing, mouth swelling, ear pain, eye pain, visual Changes CARDIOVASCULAR: Absent: chest pain, loss of consciousness, palpitations, irregular heart rate, peripheral edema RESPIRATORY: Absent: cough, shortness of breath, dyspnea with exertion, orthopnea, wheezing, stridor, hemoptysis GASTROINTESTINAL: Absent: abdominal pain, abdominal distension, nausea, vomiting, diarrhea, constipation, melena, hematochezia GENITOURINARY: Absent: dysuria, frequency, urgency, hesitancy, hematuria, flank pain, genital pain MUSCULOSKELETAL: Present: Right wrist pain absent: arthralgia, joint swelling SKIN: Absent: rash, itching, pallor HEMATOLOGIC/IMMUNOLOGIC: Absent: easy bleeding, easy bruising, lymphadenopathy, frequent infections ENDOCRINE: Absent: unexplained weight gain, unexplained weight loss, heat intolerance, cold intolerance NEUROLOGIC: Absent: headache, focal weakness or paresthesias, dizziness, unsteady gait, seizure, mental status changes, bladder or bowel incontinence PSYCHIATRIC: Absent: anxiety, depression, suicidal or homicidal ideation, hallucinations. Is the patient limited Malaysian proficient: No *Physical Exam - Vital Signs Last Vital Signs Temp Pulse Resp BP Pulse Ox 97.5 F L 80 21 H 173/90 H 95 09/03/19 10:25 09/03/19 10:25 09/03/19 10:25 09/03/19 10:25 09/03/19 10:25 - Physical Exam 09/03/19 10:57 GENERAL: The patient is awake, alert, and fully oriented, in no acute distress. HEAD: Normal with no signs of trauma. EYES: Pupils equal, round and reactive to light, extraocular movements intact, sclera anicteric, conjunctiva clear. EXTREMITIES: Normal range of motion, no edema. NEUROLOGICAL: Normal speech, normal gait. PSYCH: Normal mood, normal affect. SKIN: Swelling to the thenar eminence. No pain over the scaphoid. Warm, Dry, normal turgor, no rashes or lesions noted. Medical Decision Making - Medical Decision Making 09/03/19 10:58 The patient is 79-year-old male who presents to the ER with right wrist pain. He states that 3 days ago he was blowing the leaves in his lawn when he slipped and fell landing on his right wrist. He states that now it hurts and is swollen. He has been using his wrist brace with some relief of his symptoms. Denies numbness and tingling weakness the affected extremity. Patient is right- hand dominant. A/P: R wrist pain On exam patient with some swelling to the right thenar eminence. No pain over the scaphoid. Full range of motion intact. No sensory deficits. Distal pulses 2+. X-ray reviewed. No acute fractures seen. However patient has extensive osteoarthritis. Patient has surgery pending in the next 4 days for varicose veins. Will hold off on ibuprofen or steroids given upcoming procedure. Patient states he has a prescription for Percocet and will take that instead. Discharge home with supportive therapy including wrist brace. Orthopedic referral given and told patient it is imperative that he follows up for further treatment of his symptoms. I discussed the physical exam findings, ancillary test results and final diagnoses with the patient. I answered all of the patient's questions. The patient was satisfied with the care received and felt comfortable with the discharge plan and treatment plan. The Patient agrees to follow up with the primary care physician/specialist within 24-72 hours. Return precautions were given. Discharge - Discharge Information Problems reviewed: Yes Clinical Impression/Diagnosis: Wrist pain, right Osteoarthritis Qualifiers: Osteoarthritis location: wrist Osteoarthritis type: unspecified Laterality: right Qualified Code(s): M19.031 - Primary osteoarthritis, right wrist Condition: Stable Disposition: HOME - Admission No - Follow up/Referral Referrals: Henrik Tran MD [Staff Physician] - - Patient Discharge Instructions Patient Printed Discharge Instructions: DI for Wrist Pain Additional Instructions: You were evaluated for your wrist pain today. Your x-rays did not show any fractures, however you do have significant arthritis in the wrist. Please take your Percocet as directed by your primary care provider. Do not drink or drive after taking the medication as it may make you drowsy. You may wear the wrist splint for support. You may sleep with it as well. Take the point off to shower and move your wrist couple times a day. You may ice the area to help with the pain. Follow-up with orthopedics within the week for further evaluation and management of your symptoms. You were given a referral. Return to the ER for numbness and tingling to the hand, worsening pain or if you have any changes in your symptoms. - Post Discharge Activity
== END 2019-09-03 12:15 | disposition home or self-care (01) ==
LOC: JERFT 10:20
DX: M19.031 Primary osteoarthritis, right wrist (principal); Z87.891 Personal history of nicotine dependence; I10 Essential (primary) hypertension; K92.9 Disease of digestive system, unspecified; E11.9 Type 2 diabetes mellitus without complications; Z95.0 Presence of cardiac pacemaker; I49.1 Atrial premature depolarization; Z79.01 Long term (current) use of anticoagulants; Z88.6 Allergy status to analgesic agent
CPT/HCPCS: 73110-TC-RT-FY; 73130-TC-RT-FY; 99281-25

== ENCOUNTER 2020-08-03 01:12 | Inpatient (IN) | payer OTHER ==
[2020-08-03 01:21] VITALS: BMI 34.1
[2020-08-03] MEDS ORDERED: ACETAMINOPHEN INJECTION 100 ML IVPB ONE (03:13)
[2020-08-03] MEDS ORDERED: ACETAMINOPHEN 1000 MG/100 ML VIAL (NON FORMULARY) IVPB ONE (03:15)
[2020-08-03 03:56] LABS: BASO % 0.5 % (0-2.0); HEMATOCRIT 52.6 % (35.4-49); HEMOGLOBIN 17.6 GM/dL (11.7-16.9); LYMPH % 8.3 % (8-40); MCH 29.8 pg (25.7-33.7); MCHC 33.6 g/dl (32.0-35.9); MEAN CELL VOLUME 88.8 fl (80-96); MEAN PLT VOLUME 8.6 fl (7.5-11.1); MONO % 1.9 % (3.8-10.2); NEUT % 89.3 % (42.8-82.8); PLATELET COUNT 201 K/MM3 (134-434); RBC 5.92 M/mm3 (4.00-5.60); RDW 15.3 % (11.9-15.9); WHITE BLOOD COUNT 7.8 K/mm3 (4.0-10.0)
[2020-08-03 04:06] LABS: EPI CELLS >36 /uL (0-25.1); HYALINE CASTS 222 /uL (0-3.1); URINE APPEARANCE TURBID; URINE BILIRUBIN NEGATIVE (NEGATIVE); URINE COLOR DK YELLOW; URINE GLUCOSE (UA) NEGATIVE (NEGATIVE); URINE KETONE TRACE (NEGATIVE); URINE LEUK ESTERASE TRACE (NEGATIVE); URINE NITRITE NEGATIVE (NEGATIVE); URINE PROTEIN 3+ (NEGATIVE); URINE WBC 17 /uL (0-25.8)
[2020-08-03 04:09] LABS: ARTERIAL BLD GAS O2 SATURATION 98.8 mmHg (95-98); ARTERIAL BLOOD GAS BASE EXCESS -3.8 mmol/L (-2-2); ARTERIAL BLOOD GAS PO2 132.1 mmHg (80-100); ARTERIAL BLOOD GAS pH 7.444 (7.350-7.450)
[2020-08-03 04:14] LABS: ALLENS TEST POSITIVE; INR 1.23 (0.83-1.09)
[2020-08-03 04:17] LABS: ACTIVATED PTT 31.9 SECONDS (25.2-36.5)
[2020-08-03] MEDS ORDERED: LACTATED RINGERS SOLUTION 1000 ML INFUS.BAG IV ONE ×3 (04:23→08:05)
[2020-08-03 04:27] LABS: POTASSIUM 5.7 mmol/L (3.5-5.1)
[2020-08-03 04:28] LABS: CALCIUM 9.2 mg/dL (8.5-10.1)
[2020-08-03 04:29] LABS: ALBUMIN 3.5 g/dl (3.4-5.0); BLOOD UREA NITROGEN 30.7 mg/dL (7-18)
[2020-08-03 04:33] LABS: CREATININE 2.4 mg/dL (0.55-1.3)
[2020-08-03 04:34] LABS: BILIRUBIN,TOTAL 0.8 mg/dL (0.2-1); TOT PROT 8.7 g/dl (6.4-8.2)
[2020-08-03 04:37] LABS: N-TERMINAL BNP 2627.5 pg/ml (5-450)
[2020-08-03] MEDS ORDERED: SODIUM BICARBONATE 8.4% 50 MEQ/50 ML DISP.SYRIN IVPUSH ONE (04:45)
[2020-08-03] MEDS ORDERED: INSULIN REGULAR HUMAN 100 UNITS/ML *VIAL IVPUSH ONE (04:45)
[2020-08-03] MEDS ORDERED: DEXTROSE 50%-WATER - 25 GM/50 ML VIAL IVPUSH ONE (04:45)
[2020-08-03] MEDS ORDERED: PIPERACILLIN/TAZOB 2.25 GM 2.25 GM in DEXTROSE 5%-WATER - 50 ML IVPB ONE (05:31)
[2020-08-03 06:06] LABS: URINE BACTERIA 7.6 /uL (0-1359); URINE RBC 23.8 /uL (0-23.9)
[2020-08-03] MEDS ORDERED: PIPERACILLIN/TAZOB 2.25 GM 2.25 GM/50 ML BAG IVPB ONE (06:35)
[2020-08-03] MEDS ORDERED: DEXTROSE 50%-WATER 25 GM/50 ML DISP.SYRIN ONE (06:35)
[2020-08-03] MEDS ORDERED: SODIUM BICARBONATE 8.4% - 50 ML ONE (06:35)
[2020-08-03] MEDS ORDERED: SODIUM CHLORIDE 1,000 ML IV SCH ×2 (08:30→19:56)
[2020-08-03 08:46] LABS: BASO % 0.3 % (0-2.0); HEMATOCRIT 53.7 % (35.4-49); HEMOGLOBIN 18.1 GM/dL (11.7-16.9); LYMPH % 2.1 % (8-40); MCH 29.8 pg (25.7-33.7); MCHC 33.6 g/dl (32.0-35.9); MEAN CELL VOLUME 88.5 fl (80-96); MEAN PLT VOLUME 8.1 fl (7.5-11.1); MONO % 2.9 % (3.8-10.2); NEUT % 94.7 % (42.8-82.8); PLATELET COUNT 178 K/MM3 (134-434); RBC 6.07 M/mm3 (4.00-5.60); RDW 14.7 % (11.9-15.9); WHITE BLOOD COUNT 12.5 K/mm3 (4.0-10.0)
[2020-08-03] MEDS ORDERED: ACETAMINOPHEN 325 MG TABLET (FP) PO PRN (08:59)
[2020-08-03 09:04] LABS: POTASSIUM 4.5 mmol/L (3.5-5.1)
[2020-08-03] MEDS ORDERED: SODIUM CHLORIDE 500 ML IV STA (09:04)
[2020-08-03 09:06] LABS: CALCIUM 9.2 mg/dL (8.5-10.1)
[2020-08-03 09:07] LABS: BLOOD UREA NITROGEN 32.2 mg/dL (7-18)
[2020-08-03 09:09] LABS: BILIRUBIN,DIRECT 0.2 mg/dL (0.0-0.2)
[2020-08-03 09:10] LABS: CREATININE 2.6 mg/dL (0.55-1.3)
[2020-08-03 09:12] LABS: BILIRUBIN,TOTAL 1.5 mg/dL (0.2-1)
[2020-08-03] MEDS ORDERED: APIXABAN 5 MG TABLET ONE (09:17)
[2020-08-03] MEDS ORDERED: VANCOMYCIN 1 GRAM (PRE-DOCKED) 1,000 MG/250 ML BAG IVPB ONE (09:17)
[2020-08-03] MEDS: APIXABAN 5 MG TABLET PO SCH ×2 (09:33→21:14)
[2020-08-03] MEDS ORDERED: VANCOMYCIN 1 GM in D5W (PRE-DOCKED) 1,000 MG/250 ML IVPB SCH (10:00)
[2020-08-03 11:52] LABS: PLATELET ESTIMATE ADEQUATE
[2020-08-03] MEDS: INSULIN SLIDING SCALE (NOVOLOG) 1 VIAL SQ SCH ×3 (12:00→21:14)
[2020-08-03] MEDS ORDERED: PIPERACILLIN/TAZOB 3.375 GM 3.375 GM/50 ML BAG IVPB ONE (12:17)
[2020-08-03] MEDS: PIPERACILLIN/TAZOB 3.375 GM 3.375 GM in DEXTROSE 5%-WATER - 50 ML IVPB SCH ×2 (12:26→18:21)
[2020-08-03] MEDS: METOPROLOL TARTRATE 25 MG TABLET (FP) PO SCH ×2 (14:57→21:14)
[2020-08-03] MEDS ORDERED: METOPROLOL TARTRATE 25 MG TABLET (FP) PO ONE (15:33)
[2020-08-03] MEDS ORDERED: PIPERACILLIN/TAZOBACTAM 3.375 GM VIAL IVPB ONE (18:11)
[2020-08-03] MEDS ORDERED: DEXTROSE 5%-WATER - 50 ML IVPB ONE (18:11)
[2020-08-04] MEDS ORDERED: PIPERACILLIN/TAZOBACTAM 3.375 GM VIAL IVPB ONE ×3 (01:33→17:10)
[2020-08-04] MEDS ORDERED: DEXTROSE 5%-WATER - 50 ML IVPB ONE ×3 (01:33→17:10)
[2020-08-04] MEDS: PIPERACILLIN/TAZOB 3.375 GM 3.375 GM in DEXTROSE 5%-WATER - 50 ML IVPB SCH ×3 (01:57→17:30)
[2020-08-04] MEDS: INSULIN SLIDING SCALE (NOVOLOG) 1 VIAL SQ SCH ×4 (06:11→21:31)
[2020-08-04 07:21] LABS: BASO % 0.5 % (0-2.0); HEMATOCRIT 53.2 % (35.4-49); HEMOGLOBIN 17.4 GM/dL (11.7-16.9); LYMPH % 12.7 % (8-40); MCH 29.8 pg (25.7-33.7); MCHC 32.8 g/dl (32.0-35.9); MEAN CELL VOLUME 90.8 fl (80-96); MEAN PLT VOLUME 8.5 fl (7.5-11.1); NEUT % 79.8 % (42.8-82.8); PLATELET COUNT 154 K/MM3 (134-434); RBC 5.86 M/mm3 (4.00-5.60); RDW 15.1 % (11.9-15.9); WHITE BLOOD COUNT 5.9 K/mm3 (4.0-10.0)
[2020-08-04 08:12] LABS: ALBUMIN 2.7 g/dl (3.4-5.0); BILIRUBIN,TOTAL 0.8 mg/dL (0.2-1); CALCIUM 8.7 mg/dL (8.5-10.1); CREATININE 1.9 mg/dL (0.55-1.3); MAGNESIUM 1.9 mg/dL (1.8-2.4); POTASSIUM 4.9 mmol/L (3.5-5.1); TOT PROT 7.3 g/dl (6.4-8.2)
[2020-08-04] MEDS: METOPROLOL TARTRATE 25 MG TABLET (FP) PO SCH ×2 (09:30→21:31)
[2020-08-04] MEDS: APIXABAN 5 MG TABLET PO SCH ×2 (09:30→21:31)
[2020-08-04] MEDS ORDERED: VANCOMYCIN 1 GM in D5W (PRE-DOCKED) 1,000 MG/250 ML IVPB SCH (10:00)
[2020-08-04] MEDS ORDERED: LACTATED RINGERS SOLUTION 1,000 ML/1,000 ML INFUS.BAG IV SCH (11:00)
[2020-08-05] MEDS ORDERED: PIPERACILLIN/TAZOBACTAM 3.375 GM VIAL IVPB ONE ×2 (01:02→09:12)
[2020-08-05] MEDS ORDERED: DEXTROSE 5%-WATER - 50 ML IVPB ONE ×2 (01:03→09:12)
[2020-08-05] MEDS: PIPERACILLIN/TAZOB 3.375 GM 3.375 GM in DEXTROSE 5%-WATER - 50 ML IVPB SCH ×2 (01:10→09:18)
[2020-08-05] MEDS: INSULIN SLIDING SCALE (NOVOLOG) 1 VIAL SQ SCH ×4 (06:51→22:27)
[2020-08-05 07:38] LABS: EOS % 1.8 % (0-4.5); HEMATOCRIT 50.9 % (35.4-49); HEMOGLOBIN 16.4 GM/dL (11.7-16.9); LYMPH % 18.7 % (8-40); MCH 29.1 pg (25.7-33.7); MCHC 32.2 g/dl (32.0-35.9); MEAN CELL VOLUME 90.6 fl (80-96); MEAN PLT VOLUME 8.7 fl (7.5-11.1); MONO % 19.9 % (3.8-10.2); NEUT % 58.6 % (42.8-82.8); PLATELET COUNT 138 K/MM3 (134-434); RBC 5.62 M/mm3 (4.00-5.60); RDW 15.1 % (11.9-15.9); WHITE BLOOD COUNT 4.7 K/mm3 (4.0-10.0)
[2020-08-05 08:10] LABS: ALBUMIN 2.8 g/dl (3.4-5.0); BILIRUBIN,TOTAL 0.7 mg/dL (0.2-1); CALCIUM 8.2 mg/dL (8.5-10.1); CREATININE 1.7 mg/dL (0.55-1.3); MAGNESIUM 1.9 mg/dL (1.8-2.4); POTASSIUM 4.5 mmol/L (3.5-5.1); TOT PROT 7.2 g/dl (6.4-8.2)
[2020-08-05] MEDS: APIXABAN 5 MG TABLET PO SCH ×2 (09:18→22:27)
[2020-08-05] MEDS: METOPROLOL TARTRATE 25 MG TABLET (FP) PO SCH ×2 (09:18→22:27)
[2020-08-05 11:27] LABS: ANISOCYTOSIS 1+; MACROCYTOSIS 0; PLATELET ESTIMATE DECREASED
[2020-08-05] MEDS ORDERED: ACETAMINOPHEN 325 MG TABLET (FP) PO PRN (13:21)
[2020-08-05] MEDS ORDERED: INSULIN (NOVOLOG) ASPART 100 UNITS/ML 10ML VIAL ONE (16:55)
[2020-08-05] MEDS: CEFAZOLIN 2 GM/D5W 2 GM/50 ML ML IVPB SCH (17:12)
[2020-08-05] MEDS ORDERED: PIPERACILLIN/TAZOB 3.375 GM 3.375 GM in DEXTROSE 5%-WATER - 50 ML IVPB SCH (18:00)
[2020-08-06] MEDS: CEFAZOLIN 2 GM/D5W 2 GM/50 ML ML IVPB SCH ×3 (02:42→17:28)
[2020-08-06] MEDS: INSULIN SLIDING SCALE (NOVOLOG) 1 VIAL SQ SCH ×3 (06:41→17:28)
[2020-08-06] MEDS: APIXABAN 5 MG TABLET PO SCH (10:36)
[2020-08-06] MEDS: METOPROLOL TARTRATE 25 MG TABLET (FP) PO SCH (10:36)
[2020-08-06] MEDS ORDERED: HALOPERIDOL LACTATE 5 MG/ML IM ONE (12:05)
[2020-08-06] MEDS ORDERED: INSULIN (NOVOLOG) ASPART 100 UNITS/ML 10ML VIAL ONE (17:51)
[2020-08-06] MEDS ORDERED: PT OWN MED DRAWER 7, Y5N ONE (17:52)
[2020-08-07] MEDS: METOPROLOL TARTRATE 25 MG TABLET (FP) PO SCH ×3 (00:16→21:17)
[2020-08-07] MEDS: APIXABAN 5 MG TABLET PO SCH ×3 (00:17→21:17)
[2020-08-07] MEDS: INSULIN SLIDING SCALE (NOVOLOG) 1 VIAL SQ SCH ×5 (00:17→21:23)
[2020-08-07] MEDS: CEFAZOLIN 2 GM/D5W 2 GM/50 ML ML IVPB SCH ×3 (01:40→17:33)
[2020-08-07 09:15] LABS: BASO % 0.8 % (0-2.0); EOS % 1.7 % (0-4.5); HEMATOCRIT 47.7 % (35.4-49); HEMOGLOBIN 15.8 GM/dL (11.7-16.9); LYMPH % 23.8 % (8-40); MCHC 33.1 g/dl (32.0-35.9); MEAN CELL VOLUME 87.4 fl (80-96); MEAN PLT VOLUME 8.4 fl (7.5-11.1); NEUT % 59.7 % (42.8-82.8); PLATELET COUNT 205 K/MM3 (134-434); RBC 5.46 M/mm3 (4.00-5.60); RDW 14.6 % (11.9-15.9); WHITE BLOOD COUNT 4.9 K/mm3 (4.0-10.0)
[2020-08-07] MEDS ORDERED: PT OWN MED DRAWER 7, Y5N ONE (09:29)
[2020-08-07 09:48] LABS: ALBUMIN 2.9 g/dl (3.4-5.0); BLOOD UREA NITROGEN 20.4 mg/dL (7-18); CALCIUM 8.3 mg/dL (8.5-10.1)
[2020-08-07 09:50] LABS: MAGNESIUM 1.6 mg/dL (1.8-2.4)
[2020-08-07 09:53] LABS: CREATININE 1.2 mg/dL (0.55-1.3)
[2020-08-07 09:54] LABS: PHOSPHOROUS 2.4 mg/dL (2.5-4.9)
[2020-08-07 09:55] LABS: TOT PROT 7.8 g/dl (6.4-8.2)
[2020-08-07 10:02] LABS: BILIRUBIN,TOTAL 0.4 mg/dL (0.2-1)
[2020-08-08] MEDS: CEFAZOLIN 2 GM/D5W 2 GM/50 ML ML IVPB SCH ×2 (01:53→10:14)
[2020-08-08 06:11] VITALS: BP 138/99; PULSE 75; TEMP 97.6
[2020-08-08] MEDS: INSULIN SLIDING SCALE (NOVOLOG) 1 VIAL SQ SCH ×2 (06:11→11:26)
[2020-08-08 07:39] LABS: BASO % 0.9 % (0-2.0); EOS % 2.1 % (0-4.5); HEMATOCRIT 48.7 % (35.4-49); HEMOGLOBIN 15.9 GM/dL (11.7-16.9); LYMPH % 21.6 % (8-40); MCHC 32.7 g/dl (32.0-35.9); MEAN CELL VOLUME 88.7 fl (80-96); MEAN PLT VOLUME 8.1 fl (7.5-11.1); MONO % 13.5 % (3.8-10.2); NEUT % 61.9 % (42.8-82.8); PLATELET COUNT 232 K/MM3 (134-434); RBC 5.49 M/mm3 (4.00-5.60); RDW 14.5 % (11.9-15.9); WHITE BLOOD COUNT 5.6 K/mm3 (4.0-10.0)
[2020-08-08 07:56] LABS: POTASSIUM 4.3 mmol/L (3.5-5.1)
[2020-08-08 07:58] LABS: BLOOD UREA NITROGEN 16.5 mg/dL (7-18); CALCIUM 8.5 mg/dL (8.5-10.1)
[2020-08-08 08:02] LABS: CREATININE 1.3 mg/dL (0.55-1.3)
[2020-08-08] MEDS: APIXABAN 5 MG TABLET PO SCH (10:14)
[2020-08-08] MEDS: METOPROLOL TARTRATE 25 MG TABLET (FP) PO SCH (10:14)
== END 2020-08-08 14:58 | disposition home or self-care (01) | DRG 872 ==
LOC: JER 01:12 → JERBED 07:51 → J4S 18:18 → J6S 08-05 13:32
PROVIDERS: ATTEND Internal Medicine
DX: A41.51 Sepsis due to Escherichia coli [E. coli] (principal); N17.9 Acute kidney failure, unspecified; I42.0 Dilated cardiomyopathy; I13.0 Hypertensive heart and chronic kidney disease with heart failure and stage 1 through stage 4 chronic kidney disease, or unspecified chronic kidney disease; I50.32 Chronic diastolic (congestive) heart failure; E87.2 Acidosis; M62.82 Rhabdomyolysis; M48.56XA Collapsed vertebra, not elsewhere classified, lumbar region, initial encounter for fracture; M86.8X7 Other osteomyelitis, ankle and foot; E11.52 Type 2 diabetes mellitus with diabetic peripheral angiopathy with gangrene; I96 Gangrene, not elsewhere classified; R65.20 Severe sepsis without septic shock; K52.9 Noninfective gastroenteritis and colitis, unspecified; R41.82 Altered mental status, unspecified; D75.1 Secondary polycythemia; I48.91 Unspecified atrial fibrillation; E11.22 Type 2 diabetes mellitus with diabetic chronic kidney disease; N18.30 Chronic kidney disease, stage 3 unspecified; E11.621 Type 2 diabetes mellitus with foot ulcer; E11.51 Type 2 diabetes mellitus with diabetic peripheral angiopathy without gangrene; L97.529 Non-pressure chronic ulcer of other part of left foot with unspecified severity; I49.1 Atrial premature depolarization; R00.0 Tachycardia, unspecified; E86.0 Dehydration; K44.9 Diaphragmatic hernia without obstruction or gangrene; I25.10 Atherosclerotic heart disease of native coronary artery without angina pectoris; E11.69 Type 2 diabetes mellitus with other specified complication; W01.0XXA Fall on same level from slipping, tripping and stumbling without subsequent striking against object, initial encounter; Y92.008 Other place in unspecified non-institutional (private) residence as the place of occurrence of the external cause; Z95.2 Presence of prosthetic heart valve; Z79.4 Long term (current) use of insulin; Z96.653 Presence of artificial knee joint, bilateral; Z95.0 Presence of cardiac pacemaker
CPT/HCPCS: 36415; 36600; 70450-TC; 71045-TC-FY; 71250-TC; 72125-TC; 74176-TC; 76705-TC; 76775-TC; 80048; 80053; 81003; 82247; 82248; 82436; 82550; 82553; 82565; 82728; 82803; 82962; 83605; 83615; 83735; 83880; 84100; 84133; 84300; 84443; 84484; 85025; 85379; 85610; 85651; 85730; 86140; 87040; 87086; 87186; 87324; 87449; 87804; 87807; 93005; 93010; 97116-GP; 97161-GP; 99291; 99292; C9803; G0480; J0131; U0003

== ENCOUNTER 2021-09-07 20:57 | Inpatient (IN) | payer SELFPAY ==
[2021-09-07] MEDS ORDERED: dilTIAZem HCL 50 MG/10 ML - 10 ML VIAL IVPUSH ONE ×2 (21:07→21:42)
[2021-09-07] MEDS ORDERED: SODIUM CHLORIDE 0.9% 500 ML INFUS.BAG IV ONE ×2 (21:08→21:09)
[2021-09-07] MEDS ORDERED: dilTIAZem HCL 125 MG/25 ML - 25 ML VIAL ONE (21:12)
[2021-09-07] MEDS ORDERED: METOPROLOL TARTRATE 5 MG/5 ML VIAL IVPUSH ONE (21:19)
[2021-09-07] MEDS ORDERED: METOPROLOL TARTRATE 5 MG/5 ML VIAL ONE (21:20)
[2021-09-07 21:45] LABS: VENOUS PCO2 44.5 mmHg (38-52)
[2021-09-07 21:51] LABS: BASO % 0.5 % (0-2.0); HEMATOCRIT 59.5 % (35.4-49); HEMOGLOBIN 19.8 GM/dL (11.7-16.9); LYMPH % 4.9 % (8-40); MCHC 33.2 g/dl (32.0-35.9); MEAN CELL VOLUME 90.4 fl (80-96); MONO % 5.7 % (3.8-10.2); NEUT % 88.9 % (42.8-82.8); RBC 6.58 M/mm3 (4.00-5.60); RDW 14.6 % (11.9-15.9); WHITE BLOOD COUNT 11.1 K/mm3 (4.0-10.0)
[2021-09-07] MEDS ORDERED: ACETAMINOPHEN 1000 MG/100 ML BAG IVPB ONE ×2 (22:06→22:07)
[2021-09-07] MEDS ORDERED: PIPERACILLIN/TAZOB 4.5 GM 4.5 GM in DEXTROSE 5%-WATER 100 ML IVPB ONE (22:07)
[2021-09-07] MEDS ORDERED: VANCOMYCIN 1 GM in D5W (PRE-DOCKED) 1,000 MG/250 ML IVPB ONE (22:07)
[2021-09-07 22:10] LABS: CHLORIDE 105 mmol/L (98-107); SODIUM 131 mmol/L (136-145)
[2021-09-07 22:12] LABS: CALCIUM 8.8 mg/dL (8.5-10.1)
[2021-09-07 22:13] LABS: ALBUMIN 2.5 g/dl (3.4-5.0); BLOOD UREA NITROGEN 76.9 mg/dL (7-18); CO2 17 mmol/L (21-32); GLUCOSE,RANDOM 143 mg/dL (74-106)
[2021-09-07 22:16] LABS: CREATININE 4.4 mg/dL (0.55-1.3)
[2021-09-07] MEDS ORDERED: PIPERACILLIN/TAZOB 4.5 GM 4.5 GM/100 ML BAG IVPB ONE (22:16)
[2021-09-07] MEDS ORDERED: ACETAMINOPHEN INJECTION 100 ML IVPB ONE (22:16)
[2021-09-07] MEDS ORDERED: VANCOMYCIN 1 GRAM (PRE-DOCKED) 1,000 MG/250 ML BAG IVPB ONE (22:16)
[2021-09-07 22:17] LABS: TOT PROT 10.4 g/dl (6.4-8.2)
[2021-09-07 22:18] LABS: ALK PHOS 78 U/L (45-117)
[2021-09-07 22:19] LABS: LACTIC ACID 6.2 mmol/L (0.4-2.0)
[2021-09-07 22:30] LABS: ANION GAP 9 MMOL/L (8-16)
[2021-09-07 23:07] LABS: EPI CELLS >36 /uL (0-25.1); HYALINE CASTS 16 /uL (0-3.1); URINE APPEARANCE CLOUDY; URINE BACTERIA 7 /uL (0-1359); URINE BILIRUBIN 1+ (NEGATIVE); URINE COLOR DK YELLOW; URINE GLUCOSE (UA) NEGATIVE (NEGATIVE); URINE KETONE TRACE (NEGATIVE); URINE LEUK ESTERASE NEGATIVE (NEGATIVE); URINE NITRITE NEGATIVE (NEGATIVE); URINE PROTEIN 3+ (NEGATIVE); URINE RBC 10 /uL (0-23.9); URINE UROBILINOGEN 0.2 mg/dL (0.2-1.0)
[2021-09-07 23:10] LABS: INR 1.37 (0.83-1.09); PROTHROMBIN TIME (PATIENT) 15.4 SEC (9.7-13.0)
[2021-09-07 23:13] LABS: PLATELET ESTIMATE DECREASED
[2021-09-07 23:13] LABS: ACTIVATED PTT 38.5 SECONDS (25.2-36.5)
[2021-09-07 23:21] LABS: MEAN PLT VOLUME 8.9 fl (7.5-11.1); PLATELET COUNT 95 10^3/uL (134-434)
[2021-09-07 23:21] LABS: METHADONE, UR NEGATIVE (NEGATIVE)
[2021-09-07 23:22] LABS: OPIATES, URI NEGATIVE (NEGATIVE); PHENCYCLIDINE,URINE NEGATIVE (NEGATIVE); URINE BARBITURATES NEGATIVE (NEGATIVE); URINE BENZODIAZEPINES NEGATIVE (NEGATIVE)
[2021-09-07 23:24] LABS: ALBUMIN 2.6 g/dl (3.4-5.0); BLOOD UREA NITROGEN 78.6 mg/dL (7-18); CALCIUM 8.3 mg/dL (8.5-10.1)
[2021-09-07 23:25] LABS: COCAINE, UR NEGATIVE (NEGATIVE); URINE AMPHETAMINES NEGATIVE (NEGATIVE)
[2021-09-07 23:27] LABS: CREATININE 4.5 mg/dL (0.55-1.3)
[2021-09-07 23:29] LABS: BILIRUBIN,TOTAL 1.3 mg/dL (0.2-1)
[2021-09-07 23:38] LABS: TOT PROT 7.6 g/dl (6.4-8.2)
[2021-09-08] MEDS ORDERED: IBUPROFEN 800 MG/8 ML IJ IVPB ONE (00:34)
[2021-09-08] MEDS ORDERED: MIDAZOLAM IN 0.9 % SOD.CHLORID 1 MG/1 ML PLAST..BAG ONE (00:42)
[2021-09-08] MEDS: MIDAZOLAM IN 0.9 % SOD.CHLORID 100 MG/100 ML PLAST..BAG IVPB SCH ×2 (01:12→18:15)
[2021-09-08] MEDS ORDERED: LACTATED RINGERS SOLUTION 1000 ML INFUS.BAG IV ONE (01:22)
[2021-09-08 01:38] LABS: ALLENS TEST POSITIVE; ARTERIAL BLD GAS O2 SATURATION 99.7 % (95-98); ARTERIAL BLOOD GAS PO2 353.3 mmHg (80-100); ARTERIAL BLOOD GAS pH 7.239 (7.350-7.450)
[2021-09-08 01:39] LABS: VENT MODE A/C; VENT RATE 16
[2021-09-08] MEDS ORDERED: NOREPINEPHRINE BITARTRATE 4 MG/4 ML ML IV ONE (01:48)
[2021-09-08] MEDS ORDERED: VASOPRESSIN 20 UNITS/ML VIAL IV ONE (02:20)
[2021-09-08] MEDS: NOREPINEPHRINE BITARTRATE 16,000 MCG in SODIUM CHLORIDE 484 ML IV SCH ×2 (02:35→18:04)
[2021-09-08] MEDS: VASOPRESSIN 40 UNITS/100 ML BAG IV SCH ×2 (02:45→15:56)
[2021-09-08] MEDS ORDERED: EPINEPHRINE IV SCH (03:15)
[2021-09-08] MEDS ORDERED: WATER IV SCH (03:15)
[2021-09-08] MEDS ORDERED: DEXTROSE 5% IV SCH (03:15)
[2021-09-08] MEDS: LACTATED RINGERS SOLUTION 1,000 ML/1,000 ML INFUS.BAG IV SCH (04:03)
[2021-09-08] MEDS ORDERED: FENTANYL IVPB 500 MCG/100 ML BAG IVPB ONE (04:22)
[2021-09-08] MEDS: FENTANYL NS IVPB 500 MCG/100 ML BAG IVPB SCH ×3 (05:57→18:04)
[2021-09-08] MEDS: HYDROCORTISONE SOD SUCCINATE 100 MG/2 ML VIAL IVPB SCH ×4 (06:18→22:00)
[2021-09-08 07:25] LABS: HEMATOCRIT 54.4 % (35.4-49); MCH 30.9 pg (25.7-33.7); MEAN CELL VOLUME 93.6 fl (80-96); MEAN PLT VOLUME 9.2 fl (7.5-11.1); PLATELET COUNT 43 10^3/uL (134-434); RBC 5.81 M/mm3 (4.00-5.60); RDW 14.7 % (11.9-15.9); WHITE BLOOD COUNT 9.7 K/mm3 (4.0-10.0)
[2021-09-08 07:40] LABS: CHLORIDE 107 mmol/L (98-107); SODIUM 141 mmol/L (136-145)
[2021-09-08 07:43] LABS: ANION GAP 19 MMOL/L (8-16); BLOOD UREA NITROGEN 81.6 mg/dL (7-18); CALCIUM 7.7 mg/dL (8.5-10.1); CO2 15 mmol/L (21-32); GLUCOSE,RANDOM 162 mg/dL (74-106); MAGNESIUM 1.6 mg/dL (1.8-2.4)
[2021-09-08 07:46] LABS: CREATININE 5.4 mg/dL (0.55-1.3); PHOSPHOROUS 6.5 mg/dL (2.5-4.9); SGOT/AST 180 U/L (15-37); SGPT/ALT 60 U/L (13-61)
[2021-09-08 07:48] LABS: ALK PHOS 59 U/L (45-117); BILIRUBIN,TOTAL 1.7 mg/dL (0.2-1); TOT PROT 6.6 g/dl (6.4-8.2)
[2021-09-08 07:51] LABS: ALBUMIN 2.1 g/dl (3.4-5.0); LACTIC ACID 8.8 mmol/L (0.4-2.0)
[2021-09-08] MEDS ORDERED: DEXTROSE 5%-WATER - 50 ML IVPB ONE ×2 (08:29→17:47)
[2021-09-08] MEDS ORDERED: PIPERACILLIN/TAZOBACTAM 2.25 GM VIAL IVPB ONE ×2 (08:29→17:47)
[2021-09-08 08:46] LABS: ANISOCYTOSIS 1+; MACROCYTOSIS 0; PLATELET ESTIMATE DECREASED
[2021-09-08] MEDS: FLUDROCORTISONE ACETATE 0.1 MG TABLET (FP) PO SCH (09:16)
[2021-09-08] MEDS: MUPIROCIN 2% TOPICAL OINTMENT FOR DECOLONIZATION NS SCH ×2 (09:17→22:06)
[2021-09-08] MEDS ORDERED: PIPERACILLIN/TAZOB 2.25 GM 2.25 GM in DEXTROSE 5%-WATER - 50 ML IVPB SCH (10:00)
[2021-09-08] MEDS ORDERED: HEPARIN NA (PORCINE) 5,000 UNITS/ML 1ML VIAL SQ SCH (10:00)
[2021-09-08 10:14] LABS: ARTERIAL BLD GAS O2 SATURATION 98.4 % (95-98); ARTERIAL BLOOD GAS BASE EXCESS -16.9 mmol/L (-2-2); ARTERIAL BLOOD GAS PO2 150.8 mmHg (80-100)
[2021-09-08 10:16] LABS: ALLENS TEST POSITIVE; ARTERIAL BLOOD GAS pH 7.171 (7.350-7.450)
[2021-09-08 10:17] LABS: PT'S TEMP 98.5; VENT MODE A/C; VENT RATE 16
[2021-09-08] MEDS ORDERED: VANCOMYCIN 1 GRAM (PRE-DOCKED) 1,000 MG/250 ML BAG IVPB ONE (11:05)
[2021-09-08] MEDS: ACETAMINOPHEN 1000 MG/100 ML BAG IVPB PRN ×2 (14:54→21:16)
[2021-09-08] MEDS ORDERED: HEPARIN NA (PORCINE) 5,000 UNITS/ML 1ML VIAL IVPUSH PRN ×2 (15:44)
[2021-09-08] MEDS ORDERED: HEPARIN - 25,000 UNIT in SODIUM CHLORIDE 495 ML IV SCH (15:45)
[2021-09-08] MEDS: SODIUM BICARBONATE 8.4% - 150 MEQ in DEXTROSE 5%-WATER - 950 ML IVPB SCH ×2 (15:56→22:15)
[2021-09-08] MEDS ORDERED: AMIODARONE IN DEXTROSE,ISO-OSM 360 MG/200 ML BAG IVPB ONE (17:25)
[2021-09-08] MEDS ORDERED: AMIODARONE HCL 150 MG/3 ML VIAL IVPUSH ONE (17:26)
[2021-09-08] MEDS ORDERED: AMIODARONE IN DEXTROSE,ISO-OSM 150 MG/100 ML BAG ONE (17:49)
[2021-09-08] MEDS: PIPERACILLIN/TAZOB 2.25 GM 2.25 GM in DEXTROSE 5%-WATER - 50 ML IVPB SCH (18:04)
[2021-09-08 19:13] LABS: HIV INTERPRETATION NEGATIVE (NEGATIVE)
[2021-09-08] MEDS ORDERED: AMIODARONE IN DEXTROSE,ISO-OSM 360 MG/200 ML BAG ONE (21:06)
[2021-09-08] MEDS: CHLORHEXIDINE GLUCONATE 4% CLEANSER FOR DECOLONIZATION TP SCH (22:06)
[2021-09-09] MEDS: AMIODARONE IN DEXTROSE,ISO-OSM 360 MG/200 ML BAG IVPB SCH (00:30)
[2021-09-09] MEDS: FENTANYL NS IVPB 500 MCG/100 ML BAG IVPB SCH ×3 (01:30→23:31)
[2021-09-09] MEDS: PIPERACILLIN/TAZOB 2.25 GM 2.25 GM in DEXTROSE 5%-WATER - 50 ML IVPB SCH ×3 (01:33→18:45)
[2021-09-09] MEDS ORDERED: PIPERACILLIN/TAZOBACTAM 2.25 GM VIAL IVPB ONE ×3 (01:34→17:53)
[2021-09-09] MEDS ORDERED: DEXTROSE 5%-WATER - 50 ML IVPB ONE ×3 (01:34→17:53)
[2021-09-09] MEDS: MIDAZOLAM IN 0.9 % SOD.CHLORID 100 MG/100 ML PLAST..BAG IVPB SCH (03:47)
[2021-09-09] MEDS: VASOPRESSIN 40 UNITS/100 ML BAG IV SCH (03:47)
[2021-09-09] MEDS: LACTATED RINGERS SOLUTION 1,000 ML/1,000 ML INFUS.BAG IV SCH (03:48)
[2021-09-09] MEDS ORDERED: EPINEPHRINE IVPB SCH (04:53)
[2021-09-09] MEDS ORDERED: DEXTROSE 5% IVPB SCH (04:53)
[2021-09-09] MEDS ORDERED: WATER IVPB SCH (04:53)
[2021-09-09] MEDS: HYDROCORTISONE SOD SUCCINATE 100 MG/2 ML VIAL IVPB SCH ×4 (07:01→22:00)
[2021-09-09] MEDS: SODIUM BICARBONATE 8.4% - 150 MEQ in DEXTROSE 5%-WATER - 950 ML IVPB SCH (07:01)
[2021-09-09 07:41] LABS: HEMATOCRIT 51.5 % (35.4-49); HEMOGLOBIN 16.2 GM/dL (11.7-16.9); MCH 30.4 pg (25.7-33.7); MCHC 31.4 g/dl (32.0-35.9); MEAN CELL VOLUME 96.8 fl (80-96); MEAN PLT VOLUME 10.8 fl (7.5-11.1); RBC 5.32 M/mm3 (4.00-5.60); RDW 16.5 % (11.9-15.9); WHITE BLOOD COUNT 17.7 K/mm3 (4.0-10.0)
[2021-09-09 07:46] LABS: PLATELET COUNT 23 10^3/uL (134-434)
[2021-09-09] MEDS ORDERED: PT OWN MED DRAWER 7, Y5N ONE (08:03)
[2021-09-09 08:40] LABS: BLOOD UREA NITROGEN 99.8 mg/dL (7-18); CO2 8 mmol/L (21-32); MAGNESIUM 1.8 mg/dL (1.8-2.4)
[2021-09-09 08:41] LABS: ALBUMIN 1.8 g/dl (3.4-5.0)
[2021-09-09 08:43] LABS: SGOT/AST 996 U/L (15-37); SGPT/ALT 456 U/L (13-61); URIC ACID 12.4 mg/dL (2.6-7.2)
[2021-09-09 08:45] LABS: BILIRUBIN,TOTAL 2.7 mg/dL (0.2-1)
[2021-09-09 08:46] LABS: ALK PHOS 41 U/L (45-117)
[2021-09-09 08:59] LABS: ANION GAP 31 MMOL/L (8-16); CALCIUM 6.9 mg/dL (8.5-10.1); CHLORIDE 99 mmol/L (98-107); CREATININE 7.6 mg/dL (0.55-1.3); GLUCOSE,RANDOM > 500 mg/dL (74-106); SODIUM 138 mmol/L (136-145)
[2021-09-09] MEDS ORDERED: SODIUM BICARBONATE 8.4% 50 MEQ/50 ML VIAL IV SCH ×2 (09:00→11:00)
[2021-09-09 09:22] LABS: ANISOCYTOSIS 0; MACROCYTOSIS 0; PLATELET ESTIMATE DECREASED
[2021-09-09] MEDS ORDERED: PHENYLEPHRINE NS PREMIX 50,000 MCG/500 ML BAG CVP SCH (10:15)
[2021-09-09] MEDS: FLUDROCORTISONE ACETATE 0.1 MG TABLET (FP) PO SCH (10:55)
[2021-09-09] MEDS: MUPIROCIN 2% TOPICAL OINTMENT FOR DECOLONIZATION NS SCH ×2 (10:55→21:12)
[2021-09-09] MEDS: PHENYLEPHRINE NS PREMIX 50,000 MCG/500 ML BAG CVP SCH (11:25)
[2021-09-09] MEDS ORDERED: INSULIN REGULAR HUMAN 100 UNITS/ML *VIAL* (FOR IVP) IVPUSH ONE ×2 (11:58)
[2021-09-09] MEDS ORDERED: DEXTROSE 50%-WATER - 25 GM/50 ML VIAL IVPUSH PRN (11:58)
[2021-09-09] MEDS ORDERED: INSULIN REGULAR 100 UNITS in SODIUM CHLORIDE 99 ML IVPB SCH ×2 (12:00→12:31)
[2021-09-09] MEDS ORDERED: VANCOMYCIN 1 GRAM (PRE-DOCKED) 1,000 MG/250 ML BAG IVPB ONE (13:15)
[2021-09-09] MEDS ORDERED: SODIUM BICARBONATE 8.4% 50 MEQ/50 ML DISP.SYRIN IVPUSH ONE (14:30)
[2021-09-09] MEDS ORDERED: SODIUM BICARBONATE 8.4% 50 MEQ/50 ML VIAL ONE (15:30)
[2021-09-09] MEDS: SODIUM BICARBONATE 8.4% - 150 MEQ in DEXTROSE 5%-WATER - 950 ML IV SCH ×2 (16:10→23:30)
[2021-09-09] MEDS: COLLAGENASE CLOSTRIDIUM HIST. 30 GRAMS TUBE TP SCH (17:24)
[2021-09-09] MEDS: CHLORHEXIDINE GLUCONATE 4% CLEANSER FOR DECOLONIZATION TP SCH (21:12)
[2021-09-09 21:37] LABS: HEMATOCRIT 49.1 % (35.4-49); HEMOGLOBIN 16.4 GM/dL (11.7-16.9); MCH 30.3 pg (25.7-33.7); MCHC 33.3 g/dl (32.0-35.9); MEAN PLT VOLUME 9.7 fl (7.5-11.1); RBC 5.39 M/mm3 (4.00-5.60); RDW 15.1 % (11.9-15.9); WHITE BLOOD COUNT 13.1 K/mm3 (4.0-10.0)
[2021-09-09 21:46] LABS: PLATELET COUNT 12 10^3/uL (134-434)
[2021-09-09 21:52] LABS: INR 1.2 (0.83-1.09); PROTHROMBIN TIME (PATIENT) 13.5 SEC (9.7-13.0)
[2021-09-09 21:56] LABS: CHLORIDE 95 mmol/L (98-107); SODIUM 134 mmol/L (136-145)
[2021-09-09 21:59] LABS: ALBUMIN 1.6 g/dl (3.4-5.0); ANION GAP 19 MMOL/L (8-16); BLOOD UREA NITROGEN 103.8 mg/dL (7-18); CO2 20 mmol/L (21-32); MAGNESIUM 1.6 mg/dL (1.8-2.4)
[2021-09-09 22:02] LABS: PHOSPHOROUS 8.3 mg/dL (2.5-4.9); SGOT/AST 619 U/L (15-37); SGPT/ALT 442 U/L (13-61)
[2021-09-09 22:03] LABS: BILIRUBIN,TOTAL 2.7 mg/dL (0.2-1); TOT PROT 5.4 g/dl (6.4-8.2)
[2021-09-09 22:04] LABS: ALK PHOS 41 U/L (45-117)
[2021-09-09 22:30] LABS: CALCIUM 5.6 mg/dL (8.5-10.1); CREATININE 8.2 mg/dL (0.55-1.3); GLUCOSE,RANDOM 433 mg/dL (74-106)
[2021-09-09 22:32] LABS: LACTIC ACID 6.9 mmol/L (0.4-2.0)
[2021-09-09 22:47] LABS: ANISOCYTOSIS 2+; MACROCYTOSIS 0; PLATELET ESTIMATE DECREASED
[2021-09-09] MEDS: INSULIN REGULAR 100 UNITS in SODIUM CHLORIDE 99 ML IVPB SCH (23:00)
[2021-09-10] MEDS ORDERED: MAGNESIUM SULF 50% (8.12 MEQ/2 ML-1 GM VIAL) IVPB ONE (00:44)
[2021-09-10] MEDS: NOREPINEPHRINE BITARTRATE 16,000 MCG in SODIUM CHLORIDE 484 ML IV SCH ×2 (01:39→02:56)
[2021-09-10] MEDS: MIDAZOLAM IN 0.9 % SOD.CHLORID 100 MG/100 ML PLAST..BAG IVPB SCH ×2 (01:39→21:40)
[2021-09-10] MEDS ORDERED: PIPERACILLIN/TAZOBACTAM 2.25 GM VIAL IVPB ONE ×2 (01:41→09:05)
[2021-09-10] MEDS ORDERED: DEXTROSE 5%-WATER - 50 ML IVPB ONE ×2 (01:42→09:05)
[2021-09-10] MEDS: PIPERACILLIN/TAZOB 2.25 GM 2.25 GM in DEXTROSE 5%-WATER - 50 ML IVPB SCH ×2 (01:43→10:55)
[2021-09-10] MEDS: AMIODARONE IN DEXTROSE,ISO-OSM 360 MG/200 ML BAG IVPB SCH (01:48)
[2021-09-10] MEDS: FENTANYL NS IVPB 500 MCG/100 ML BAG IVPB SCH ×2 (02:57→05:09)
[2021-09-10] MEDS: HYDROCORTISONE SOD SUCCINATE 100 MG/2 ML VIAL IVPB SCH ×4 (02:57→21:48)
[2021-09-10] MEDS: VASOPRESSIN 40 UNITS/100 ML BAG IV SCH (04:41)
[2021-09-10] MEDS: LACTATED RINGERS SOLUTION 1,000 ML/1,000 ML INFUS.BAG IV SCH (04:41)
[2021-09-10] MEDS ORDERED: MAGNESIUM SULF 50% (8.12 MEQ/2 ML-1 GM VIAL) ONE (05:04)
[2021-09-10 07:44] LABS: HEMATOCRIT 48.2 % (35.4-49); HEMOGLOBIN 16.3 GM/dL (11.7-16.9); MCH 30.9 pg (25.7-33.7); MCHC 33.8 g/dl (32.0-35.9); MEAN CELL VOLUME 91.4 fl (80-96); MEAN PLT VOLUME 10.3 fl (7.5-11.1); RBC 5.27 M/mm3 (4.00-5.60); RDW 14.9 % (11.9-15.9); WHITE BLOOD COUNT 13.8 K/mm3 (4.0-10.0)
[2021-09-10 07:51] LABS: CHLORIDE 97 mmol/L (98-107); SODIUM 136 mmol/L (136-145)
[2021-09-10 07:54] LABS: PLATELET COUNT 10 10^3/uL (134-434)
[2021-09-10 08:03] LABS: ALBUMIN 1.5 g/dl (3.4-5.0); ANION GAP 20 MMOL/L (8-16); BLOOD UREA NITROGEN 102.2 mg/dL (7-18); CO2 19 mmol/L (21-32); GLUCOSE,RANDOM 318 mg/dL (74-106); MAGNESIUM 1.8 mg/dL (1.8-2.4)
[2021-09-10 08:06] LABS: PHOSPHOROUS 7.4 mg/dL (2.5-4.9); SGOT/AST 506 U/L (15-37); SGPT/ALT 433 U/L (13-61)
[2021-09-10 08:07] LABS: BILIRUBIN,TOTAL 2.7 mg/dL (0.2-1)
[2021-09-10 08:08] LABS: TOT PROT 5.2 g/dl (6.4-8.2)
[2021-09-10 08:11] LABS: ALK PHOS 46 U/L (45-117)
[2021-09-10 08:17] LABS: CALCIUM 5.3 mg/dL (8.5-10.1); CREATININE 8.4 mg/dL (0.55-1.3); LACTIC ACID 6.6 mmol/L (0.4-2.0)
[2021-09-10 09:01] LABS: ANISOCYTOSIS 1+; MACROCYTOSIS 0; PLATELET ESTIMATE DECREASED
[2021-09-10] MEDS: SODIUM BICARBONATE 8.4% - 150 MEQ in DEXTROSE 5%-WATER - 950 ML IV SCH (09:15)
[2021-09-10] MEDS: MUPIROCIN 2% TOPICAL OINTMENT FOR DECOLONIZATION NS SCH ×2 (09:21→21:50)
[2021-09-10] MEDS: FLUDROCORTISONE ACETATE 0.1 MG TABLET (FP) PO SCH (09:27)
[2021-09-10] MEDS ORDERED: AMMONIUM LACTATE 12% LOTION 225 GM BOTTLE TP PRN (09:43)
[2021-09-10] MEDS: COLLAGENASE CLOSTRIDIUM HIST. 30 GRAMS TUBE TP SCH (10:30)
[2021-09-10] MEDS: PHENYLEPHRINE NS PREMIX 50,000 MCG/500 ML BAG CVP SCH (11:20)
[2021-09-10] MEDS: CEFAZOLIN 500 MG in DEXTROSE 5%-WATER - 50 ML IVPB SCH ×2 (14:05→21:48)
[2021-09-10 18:55] LABS: BASO % 0.3 % (0-2.0); EOS % 0.1 % (0-4.5); HEMATOCRIT 45.3 % (35.4-49); HEMOGLOBIN 15.5 GM/dL (11.7-16.9); MCH 30.3 pg (25.7-33.7); MCHC 34.2 g/dl (32.0-35.9); MEAN CELL VOLUME 88.7 fl (80-96); MONO % 7.1 % (3.8-10.2); NEUT % 90.5 % (42.8-82.8); RDW 14.8 % (11.9-15.9)
[2021-09-10 19:13] LABS: CHLORIDE 99 mmol/L (98-107); SODIUM 138 mmol/L (136-145)
[2021-09-10 19:16] LABS: ALBUMIN 1.5 g/dl (3.4-5.0); ANION GAP 13 MMOL/L (8-16); CO2 25 mmol/L (21-32); GLUCOSE,RANDOM 143 mg/dL (74-106)
[2021-09-10 19:19] LABS: SGOT/AST 356 U/L (15-37); SGPT/ALT 377 U/L (13-61)
[2021-09-10 19:21] LABS: TOT PROT 5.1 g/dl (6.4-8.2)
[2021-09-10 19:22] LABS: ALK PHOS 48 U/L (45-117)
[2021-09-10 19:28] LABS: PLATELET COUNT 9 10^3/uL (134-434)
[2021-09-10 19:29] LABS: PLATELET ESTIMATE DECREASED
[2021-09-10 19:33] LABS: BLOOD UREA NITROGEN 104.5 mg/dL (7-18); CALCIUM 5.3 mg/dL (8.5-10.1); CREATININE 8.4 mg/dL (0.55-1.3)
[2021-09-10] MEDS ORDERED: PT OWN MED DRAWER 7, Y5N ONE (21:46)
[2021-09-10] MEDS: CHLORHEXIDINE GLUCONATE 4% CLEANSER FOR DECOLONIZATION TP SCH (21:50)
[2021-09-11] MEDS: AMIODARONE IN DEXTROSE,ISO-OSM 360 MG/200 ML BAG IVPB SCH ×2 (01:33→16:48)
[2021-09-11] MEDS: SODIUM BICARBONATE 8.4% - 150 MEQ in DEXTROSE 5%-WATER - 950 ML IV SCH ×2 (01:33→08:50)
[2021-09-11] MEDS: FENTANYL NS IVPB 500 MCG/100 ML BAG IVPB SCH ×4 (01:33→19:12)
[2021-09-11] MEDS: MIDAZOLAM IN 0.9 % SOD.CHLORID 100 MG/100 ML PLAST..BAG IVPB SCH ×2 (01:35→21:05)
[2021-09-11] MEDS: LACTATED RINGERS SOLUTION 1,000 ML/1,000 ML INFUS.BAG IV SCH (01:35)
[2021-09-11] MEDS: INSULIN REGULAR 100 UNITS in SODIUM CHLORIDE 99 ML IVPB SCH ×2 (01:36→04:46)
[2021-09-11 02:19] LABS: HEMATOCRIT 41.4 % (35.4-49); HEMOGLOBIN 14.4 GM/dL (11.7-16.9); MCH 30.4 pg (25.7-33.7); MCHC 34.6 g/dl (32.0-35.9); MEAN CELL VOLUME 87.8 fl (80-96); MEAN PLT VOLUME 7.9 fl (7.5-11.1); RBC 4.72 M/mm3 (4.00-5.60); RDW 14.6 % (11.9-15.9); WHITE BLOOD COUNT 14.2 K/mm3 (4.0-10.0)
[2021-09-11 02:35] LABS: PLATELET COUNT 16 10^3/uL (134-434)
[2021-09-11] MEDS: VASOPRESSIN 40 UNITS/100 ML BAG IV SCH ×2 (02:57→13:00)
[2021-09-11] MEDS: NOREPINEPHRINE BITARTRATE 16,000 MCG in SODIUM CHLORIDE 484 ML IV SCH ×2 (02:58→13:01)
[2021-09-11] MEDS: HYDROCORTISONE SOD SUCCINATE 100 MG/2 ML VIAL IVPB SCH ×4 (03:01→21:11)
[2021-09-11 07:56] LABS: HEMATOCRIT 41.5 % (35.4-49); HEMOGLOBIN 14.4 GM/dL (11.7-16.9); MCH 30.5 pg (25.7-33.7); MCHC 34.7 g/dl (32.0-35.9); MEAN CELL VOLUME 87.8 fl (80-96); MEAN PLT VOLUME 8.4 fl (7.5-11.1); RBC 4.72 M/mm3 (4.00-5.60); RDW 14.4 % (11.9-15.9); WHITE BLOOD COUNT 15.6 K/mm3 (4.0-10.0)
[2021-09-11 07:59] LABS: CHLORIDE 96 mmol/L (98-107); SODIUM 134 mmol/L (136-145)
[2021-09-11 08:05] LABS: ALBUMIN 1.5 g/dl (3.4-5.0); ANION GAP 14 MMOL/L (8-16); CO2 25 mmol/L (21-32); GLUCOSE,RANDOM 177 mg/dL (74-106); MAGNESIUM 1.7 mg/dL (1.8-2.4)
[2021-09-11 08:08] LABS: PHOSPHOROUS 5.9 mg/dL (2.5-4.9); SGPT/ALT 283 U/L (13-61)
[2021-09-11 08:09] LABS: SGOT/AST 263 U/L (15-37)
[2021-09-11 08:10] LABS: BILIRUBIN,TOTAL 2.1 mg/dL (0.2-1); TOT PROT 4.8 g/dl (6.4-8.2)
[2021-09-11 08:11] LABS: ALK PHOS 53 U/L (45-117)
[2021-09-11 08:32] LABS: CREATININE 8.5 mg/dL (0.55-1.3)
[2021-09-11 08:48] LABS: CALCIUM < 5.0 mg/dL (8.5-10.1)
[2021-09-11] MEDS ORDERED: PT OWN MED DRAWER 7, Y5N ONE ×2 (09:05→21:07)
[2021-09-11] MEDS: CEFAZOLIN 500 MG in DEXTROSE 5%-WATER - 50 ML IVPB SCH ×2 (09:07→21:11)
[2021-09-11] MEDS: MUPIROCIN 2% TOPICAL OINTMENT FOR DECOLONIZATION NS SCH ×2 (09:11→21:12)
[2021-09-11] MEDS: COLLAGENASE CLOSTRIDIUM HIST. 30 GRAMS TUBE TP SCH (09:12)
[2021-09-11 09:19] LABS: PLATELET COUNT 16 10^3/uL (134-434)
[2021-09-11] MEDS ORDERED: CALCIUM CHLORIDE 10% 1 GM/10 ML *VIAL IVPB ONE (09:23)
[2021-09-11] MEDS ORDERED: CALCIUM GLUCONATE 10% - 1,000 MG/10 ML VIAL IVPUSH ONE (09:25)
[2021-09-11] MEDS ORDERED: CALCIUM GLUCONATE 10% - 1,000 MG/10 ML VIAL IVPB ONE ×2 (09:26→10:26)
[2021-09-11] MEDS ORDERED: MAGNESIUM 1GM/D5W - 1 GM/100 ML IVPB IVPB ONE (09:45)
[2021-09-11] MEDS: FLUDROCORTISONE ACETATE 0.1 MG TABLET (FP) PO SCH (10:19)
[2021-09-11] MEDS: PHENYLEPHRINE NS PREMIX 50,000 MCG/500 ML BAG CVP SCH (10:46)
[2021-09-11 11:24] LABS: PLATELET ESTIMATE DECREASED
[2021-09-11] MEDS: INSULIN SLIDING SCALE (NOVOLOG) 1 VIAL SQ SCH ×2 (15:02→21:04)
[2021-09-11 18:05] LABS: ARTERIAL BLD GAS O2 SATURATION 99.6 % (95-98); ARTERIAL BLOOD GAS BASE EXCESS -5.2 mmol/L (-2-2); ARTERIAL BLOOD GAS PO2 250.9 mmHg (80-100); ARTERIAL BLOOD GAS pH 7.425 (7.350-7.450)
[2021-09-11 18:06] LABS: VENT MODE AC
[2021-09-11 18:07] LABS: VENT RATE 24
[2021-09-11] MEDS: CHLORHEXIDINE GLUCONATE 4% CLEANSER FOR DECOLONIZATION TP SCH (21:12)
[2021-09-12] MEDS: AMIODARONE IN DEXTROSE,ISO-OSM 360 MG/200 ML BAG IVPB SCH ×3 (00:19→15:18)
[2021-09-12] MEDS: FENTANYL NS IVPB 500 MCG/100 ML BAG IVPB SCH ×6 (00:54→22:24)
[2021-09-12] MEDS: MIDAZOLAM IN 0.9 % SOD.CHLORID 100 MG/100 ML PLAST..BAG IVPB SCH ×2 (00:54→10:11)
[2021-09-12] MEDS: LACTATED RINGERS SOLUTION 1,000 ML/1,000 ML INFUS.BAG IV SCH (02:01)
[2021-09-12] MEDS: INSULIN SLIDING SCALE (NOVOLOG) 1 VIAL SQ SCH ×4 (02:01→20:36)
[2021-09-12] MEDS: NOREPINEPHRINE BITARTRATE 16,000 MCG in SODIUM CHLORIDE 484 ML IV SCH (03:14)
[2021-09-12] MEDS: HYDROCORTISONE SOD SUCCINATE 100 MG/2 ML VIAL IVPB SCH ×4 (03:14→20:37)
[2021-09-12 07:41] LABS: CHLORIDE 94 mmol/L (98-107); SODIUM 133 mmol/L (136-145)
[2021-09-12 07:50] LABS: ALBUMIN 1.3 g/dl (3.4-5.0); ANION GAP 18 MMOL/L (8-16); CO2 22 mmol/L (21-32); GLUCOSE,RANDOM 267 mg/dL (74-106)
[2021-09-12 07:53] LABS: SGOT/AST 146 U/L (15-37); SGPT/ALT 151 U/L (13-61)
[2021-09-12 07:54] LABS: BILIRUBIN,TOTAL 1.9 mg/dL (0.2-1)
[2021-09-12 07:55] LABS: TOT PROT 4.5 g/dl (6.4-8.2)
[2021-09-12 07:56] LABS: ALK PHOS 69 U/L (45-117)
[2021-09-12 08:06] LABS: BLOOD UREA NITROGEN 126.9 mg/dL (7-18); CREATININE 9.3 mg/dL (0.55-1.3)
[2021-09-12 08:23] LABS: HEMATOCRIT 40.2 % (35.4-49); HEMOGLOBIN 13.9 GM/dL (11.7-16.9); MCH 30.4 pg (25.7-33.7); MCHC 34.6 g/dl (32.0-35.9); MEAN PLT VOLUME 9.8 fl (7.5-11.1); RBC 4.57 M/mm3 (4.00-5.60); RDW 14.4 % (11.9-15.9)
[2021-09-12 08:35] LABS: PLATELET COUNT 18 10^3/uL (134-434)
[2021-09-12] MEDS ORDERED: CALCIUM GLUCONATE 10% - 1,000 MG/10 ML VIAL IVPUSH ONE ×2 (08:39→18:23)
[2021-09-12] MEDS ORDERED: PT OWN MED DRAWER 7, Y5N ONE ×2 (09:13→21:38)
[2021-09-12] MEDS: MUPIROCIN 2% TOPICAL OINTMENT FOR DECOLONIZATION NS SCH ×2 (10:10→21:43)
[2021-09-12] MEDS: COLLAGENASE CLOSTRIDIUM HIST. 30 GRAMS TUBE TP SCH (10:10)
[2021-09-12] MEDS: CEFAZOLIN 500 MG in DEXTROSE 5%-WATER - 50 ML IVPB SCH ×2 (10:10→21:43)
[2021-09-12 10:44] LABS: ARTERIAL BLD GAS O2 SATURATION 99.6 % (95-98); ARTERIAL BLOOD GAS BASE EXCESS -3.7 mmol/L (-2-2); ARTERIAL BLOOD GAS pH 7.461 (7.350-7.450)
[2021-09-12 10:45] LABS: ALLENS TEST POSITIVE; VENT MODE A/C; VENT RATE 24
[2021-09-12] MEDS: PHENYLEPHRINE NS PREMIX 50,000 MCG/500 ML BAG CVP SCH (11:00)
[2021-09-12] MEDS ORDERED: fentaNYL CITRATE 250 MCG/5 ML VIAL ONE (11:46)
[2021-09-12 12:02] LABS: ANISOCYTOSIS 0; HELMET CELLS 0; HOWELL-JOLLY BODIES 0; MACROCYTOSIS 0; OVALOCYTE 0; PLATELET ESTIMATE DECREASED; ROULEAU 0; SICKELED CELLS 0; TARGET CELLS 0; TEAR DROP CELLS 0; TOXIC GRANULATION 0
[2021-09-12] MEDS: PANTOPRAZOLE SODIUM 40 MG VIAL IVPUSH SCH (12:41)
[2021-09-12] MEDS: VASOPRESSIN 40 UNITS/100 ML BAG IV SCH (14:30)
[2021-09-12 16:59] LABS: BASO % 0.1 % (0-2.0); HEMATOCRIT 37.9 % (35.4-49); LYMPH % 1.5 % (8-40); MCHC 34.3 g/dl (32.0-35.9); MEAN CELL VOLUME 87.5 fl (80-96); MEAN PLT VOLUME 9.1 fl (7.5-11.1); MONO % 3.6 % (3.8-10.2); NEUT % 94.8 % (42.8-82.8); PLATELET COUNT 109 10^3/uL (134-434); RBC 4.33 M/mm3 (4.00-5.60); RDW 14.3 % (11.9-15.9); WHITE BLOOD COUNT 18.3 K/mm3 (4.0-10.0)
[2021-09-12 17:18] LABS: CHLORIDE 96 mmol/L (98-107); SODIUM 135 mmol/L (136-145)
[2021-09-12 17:19] LABS: INR 1.1 (0.83-1.09); PROTHROMBIN TIME (PATIENT) 12.9 SEC (9.7-13.0)
[2021-09-12 17:21] LABS: ALBUMIN 1.6 g/dl (3.4-5.0); ANION GAP 18 MMOL/L (8-16); CO2 21 mmol/L (21-32); GLUCOSE,RANDOM 176 mg/dL (74-106); MAGNESIUM 2.1 mg/dL (1.8-2.4)
[2021-09-12 17:24] LABS: ANISOCYTOSIS 2+; MACROCYTOSIS 1+; PHOSPHOROUS 6.3 mg/dL (2.5-4.9); PLATELET ESTIMATE DECREASED; SGOT/AST 115 U/L (15-37); SGPT/ALT 103 U/L (13-61); TARGET CELLS 1+
[2021-09-12 17:25] LABS: BILIRUBIN,TOTAL 1.6 mg/dL (0.2-1)
[2021-09-12 17:27] LABS: ALK PHOS 78 U/L (45-117)
[2021-09-12 17:38] LABS: BLOOD UREA NITROGEN 130.4 mg/dL (7-18); CALCIUM 5.5 mg/dL (8.5-10.1); CREATININE 9.4 mg/dL (0.55-1.3)
[2021-09-12] MEDS ORDERED: SODIUM CHLORIDE 250 ML IV PRN (19:30)
[2021-09-12] MEDS: DEXMEDETOMIDINE IN 0.9 % NACL 400 MCG/100 ML VIAL IVPB SCH (20:17)
[2021-09-12] MEDS: CHLORHEXIDINE GLUCONATE 4% CLEANSER FOR DECOLONIZATION TP SCH (21:43)
[2021-09-13] MEDS: DEXMEDETOMIDINE IN 0.9 % NACL 400 MCG/100 ML VIAL IVPB SCH ×2 (00:27→16:30)
[2021-09-13] MEDS: AMIODARONE IN DEXTROSE,ISO-OSM 360 MG/200 ML BAG IVPB SCH (01:15)
[2021-09-13] MEDS: LACTATED RINGERS SOLUTION 1,000 ML/1,000 ML INFUS.BAG IV SCH (01:59)
[2021-09-13] MEDS: INSULIN SLIDING SCALE (NOVOLOG) 1 VIAL SQ SCH ×6 (03:00→21:24)
[2021-09-13] MEDS: HYDROCORTISONE SOD SUCCINATE 100 MG/2 ML VIAL IVPB SCH ×4 (03:14→21:13)
[2021-09-13] MEDS: NOREPINEPHRINE BITARTRATE 16,000 MCG in SODIUM CHLORIDE 484 ML IV SCH (03:40)
[2021-09-13] MEDS: FENTANYL NS IVPB 500 MCG/100 ML BAG IVPB SCH ×4 (04:00→20:37)
[2021-09-13] MEDS: VASOPRESSIN 40 UNITS/100 ML BAG IV SCH (04:13)
[2021-09-13] MEDS: AMINO ACIDS/PROTEIN HYDROLYS 30 ML LIQUID.PKT PO SCH (07:25)
[2021-09-13 07:35] LABS: HEMATOCRIT 40.1 % (35.4-49); HEMOGLOBIN 13.8 GM/dL (11.7-16.9); MCH 30.4 pg (25.7-33.7); MCHC 34.6 g/dl (32.0-35.9); MEAN CELL VOLUME 87.9 fl (80-96); MEAN PLT VOLUME 10.7 fl (7.5-11.1); PLATELET COUNT 93 10^3/uL (134-434); RBC 4.56 M/mm3 (4.00-5.60); RDW 14.7 % (11.9-15.9); WHITE BLOOD COUNT 19.9 K/mm3 (4.0-10.0)
[2021-09-13 07:43] LABS: INR 1.12 (0.83-1.09); PROTHROMBIN TIME (PATIENT) 13.1 SEC (9.7-13.0)
[2021-09-13 07:47] LABS: CHLORIDE 96 mmol/L (98-107); SODIUM 136 mmol/L (136-145)
[2021-09-13 07:49] LABS: ANION GAP 17 MMOL/L (8-16); CO2 23 mmol/L (21-32); GLUCOSE,RANDOM 162 mg/dL (74-106)
[2021-09-13 07:50] LABS: ALBUMIN 1.5 g/dl (3.4-5.0); MAGNESIUM 2.2 mg/dL (1.8-2.4)
[2021-09-13 07:52] LABS: PHOSPHOROUS 6.5 mg/dL (2.5-4.9); SGPT/ALT 69 U/L (13-61)
[2021-09-13 07:53] LABS: SGOT/AST 107 U/L (15-37)
[2021-09-13 07:54] LABS: BILIRUBIN,TOTAL 1.9 mg/dL (0.2-1)
[2021-09-13 07:55] LABS: ALK PHOS 88 U/L (45-117)
[2021-09-13 08:17] LABS: BLOOD UREA NITROGEN 114.9 mg/dL (7-18); CALCIUM 5.9 mg/dL (8.5-10.1); CREATININE 8.5 mg/dL (0.55-1.3)
[2021-09-13] MEDS ORDERED: CALCIUM GLUCONATE 10% - 1,000 MG/10 ML VIAL IVPB ONE (08:24)
[2021-09-13] MEDS ORDERED: PT OWN MED DRAWER 7, Y5N ONE ×4 (08:47→20:30)
[2021-09-13] MEDS: CEFAZOLIN 500 MG in DEXTROSE 5%-WATER - 50 ML IVPB SCH ×2 (09:11→21:16)
[2021-09-13] MEDS: PANTOPRAZOLE SODIUM 40 MG VIAL IVPUSH SCH (09:12)
[2021-09-13] MEDS: COLLAGENASE CLOSTRIDIUM HIST. 30 GRAMS TUBE TP SCH (09:12)
[2021-09-13] MEDS ORDERED: SODIUM CHLORIDE 250 ML IV PRN (09:14)
[2021-09-13] MEDS: PHENYLEPHRINE NS PREMIX 50,000 MCG/500 ML BAG CVP SCH (11:07)
[2021-09-13 11:08] LABS: ANISOCYTOSIS 0; MACROCYTOSIS 0; PLATELET ESTIMATE DECREASED
[2021-09-13] MEDS: ALBUMIN HUMAN 25% 12.5 GM/50 ML VIAL IVPB SCH ×3 (11:20→12:21)
[2021-09-13] MEDS: METOPROLOL TARTRATE 25 MG TABLET (FP) PO SCH (21:24)
[2021-09-14] MEDS: CHLORHEXIDINE GLUCONATE 4% CLEANSER FOR DECOLONIZATION TP SCH ×2 (01:45→21:53)
[2021-09-14] MEDS: FENTANYL NS IVPB 500 MCG/100 ML BAG IVPB SCH ×4 (01:46→20:11)
[2021-09-14] MEDS: HYDROCORTISONE SOD SUCCINATE 100 MG/2 ML VIAL IVPB SCH ×4 (03:09→21:46)
[2021-09-14] MEDS: ACETAMINOPHEN 1000 MG/100 ML BAG IVPB PRN (05:52)
[2021-09-14 06:31] LABS: ARTERIAL BLD GAS O2 SATURATION 89.4 % (95-98); ARTERIAL BLOOD GAS BASE EXCESS -5.8 mmol/L (-2-2); ARTERIAL BLOOD GAS PO2 55.3 mmHg (80-100); ARTERIAL BLOOD GAS pH 7.403 (7.350-7.450)
[2021-09-14] MEDS ORDERED: PT OWN MED DRAWER 7, Y5N ONE ×4 (06:32→21:34)
[2021-09-14] MEDS: DEXMEDETOMIDINE IN 0.9 % NACL 400 MCG/100 ML VIAL IVPB SCH ×2 (06:38→11:25)
[2021-09-14 06:44] LABS: ALLENS TEST POSITIVE; VENT MODE A/C; VENT RATE 24
[2021-09-14] MEDS: INSULIN SLIDING SCALE (NOVOLOG) 1 VIAL SQ SCH ×4 (07:04→21:44)
[2021-09-14] MEDS ORDERED: ACETAMINOPHEN 1000 MG/100 ML BAG IVPB ONE ×2 (08:45→17:19)
[2021-09-14] MEDS: AMINO ACIDS/PROTEIN HYDROLYS 30 ML LIQUID.PKT PO SCH ×2 (08:53→09:01)
[2021-09-14 08:58] LABS: BASO % 0.8 % (0-2.0); EOS % 0.1 % (0-4.5); HEMATOCRIT 42.2 % (35.4-49); HEMOGLOBIN 14.5 GM/dL (11.7-16.9); MCH 30.1 pg (25.7-33.7); MCHC 34.3 g/dl (32.0-35.9); MEAN CELL VOLUME 87.6 fl (80-96); MEAN PLT VOLUME 11.1 fl (7.5-11.1); MONO % 5.1 % (3.8-10.2); PLATELET COUNT 205 10^3/uL (134-434); RBC 4.82 M/mm3 (4.00-5.60); RDW 14.8 % (11.9-15.9); WHITE BLOOD COUNT 22.9 K/mm3 (4.0-10.0)
[2021-09-14] MEDS: PANTOPRAZOLE SODIUM 40 MG VIAL IVPUSH SCH (08:59)
[2021-09-14] MEDS: CEFAZOLIN 500 MG in DEXTROSE 5%-WATER - 50 ML IVPB SCH ×2 (08:59→21:46)
[2021-09-14] MEDS: COLLAGENASE CLOSTRIDIUM HIST. 30 GRAMS TUBE TP SCH (08:59)
[2021-09-14 09:00] LABS: CHLORIDE 99 mmol/L (98-107); SODIUM 135 mmol/L (136-145)
[2021-09-14 09:16] LABS: ALBUMIN 1.3 g/dl (3.4-5.0); ANION GAP 20 MMOL/L (8-16); BLOOD UREA NITROGEN 102.5 mg/dL (7-18); CO2 16 mmol/L (21-32); GLUCOSE,RANDOM 184 mg/dL (74-106); MAGNESIUM 2.3 mg/dL (1.8-2.4)
[2021-09-14 09:19] LABS: PHOSPHOROUS 7.4 mg/dL (2.5-4.9); SGOT/AST 132 U/L (15-37); SGPT/ALT 38 U/L (13-61)
[2021-09-14 09:20] LABS: BILIRUBIN,TOTAL 2.4 mg/dL (0.2-1); TOT PROT 4.9 g/dl (6.4-8.2)
[2021-09-14 09:22] LABS: ALK PHOS 97 U/L (45-117)
[2021-09-14 09:24] LABS: CALCIUM 5.8 mg/dL (8.5-10.1); CREATININE 7.8 mg/dL (0.55-1.3)
[2021-09-14 09:50] LABS: ANISOCYTOSIS 1+; MACROCYTOSIS 0; PLATELET ESTIMATE NORMAL
[2021-09-14] MEDS: METOPROLOL TARTRATE 25 MG TABLET (FP) PO SCH (09:52)
[2021-09-14] MEDS ORDERED: FUROSEMIDE 40 MG/4 ML INJECTABLE VIAL IVPUSH ONE (10:24)
[2021-09-14] MEDS ORDERED: CALCIUM GLUCONATE 10% - 1,000 MG/10 ML VIAL IVPB ONE (10:43)
[2021-09-14] MEDS: NOREPINEPHRINE BITARTRATE 16,000 MCG in SODIUM CHLORIDE 484 ML IV SCH ×2 (10:59→23:05)
[2021-09-14] MEDS: METOPROLOL TARTRATE 5 MG/5 ML VIAL IVPUSH SCH ×3 (11:00→23:18)
[2021-09-14] MEDS: PHENYLEPHRINE NS PREMIX 50,000 MCG/500 ML BAG CVP SCH (11:26)
[2021-09-14] MEDS ORDERED: FUROSEMIDE 40 MG/4 ML INJECTABLE VIAL ONE (11:37)
[2021-09-14 12:08] LABS: VENOUS BASE EXCESS -4.4 mmol/L (-2-2); VENOUS O2 SATURATION 68.8 % (70-80); VENOUS PH 7.319 (7.310-7.410)
[2021-09-14] MEDS ORDERED: ACETAMINOPHEN INJECTION 100 ML IVPB ONE (14:01)
[2021-09-14] MEDS ORDERED: SODIUM CHLORIDE 250 ML IV PRN (15:11)
[2021-09-14] MEDS: ALBUMIN HUMAN 25% 12.5 GM/50 ML VIAL IVPB SCH ×3 (16:00→16:59)
[2021-09-14] MEDS: APIXABAN 2.5 MG TABLET NGT SCH (21:46)
[2021-09-14] MEDS ORDERED: METOPROLOL TARTRATE 25 MG TABLET (FP) PO SCH (22:00)
[2021-09-15] MEDS: NOREPINEPHRINE BITARTRATE 16,000 MCG in SODIUM CHLORIDE 484 ML IV SCH (02:43)
[2021-09-15] MEDS: HYDROCORTISONE SOD SUCCINATE 100 MG/2 ML VIAL IVPB SCH ×4 (02:44→21:55)
[2021-09-15] MEDS: METOPROLOL TARTRATE 5 MG/5 ML VIAL IVPUSH SCH ×4 (02:44→21:56)
[2021-09-15] MEDS: FENTANYL NS IVPB 500 MCG/100 ML BAG IVPB SCH (03:10)
[2021-09-15] MEDS: INSULIN SLIDING SCALE (NOVOLOG) 1 VIAL SQ SCH ×4 (06:33→22:24)
[2021-09-15 07:27] LABS: HEMATOCRIT 41.6 % (35.4-49); MCH 29.2 pg (25.7-33.7); MCHC 33.7 g/dl (32.0-35.9); MEAN CELL VOLUME 86.7 fl (80-96); MEAN PLT VOLUME 10.7 fl (7.5-11.1); PLATELET COUNT 250 10^3/uL (134-434); RBC 4.79 M/mm3 (4.00-5.60); RDW 15.2 % (11.9-15.9)
[2021-09-15 07:43] LABS: CHLORIDE 96 mmol/L (98-107)
[2021-09-15 07:45] LABS: BLOOD UREA NITROGEN 99.5 mg/dL (7-18); CO2 22 mmol/L (21-32); GLUCOSE,RANDOM 221 mg/dL (74-106); MAGNESIUM 2.4 mg/dL (1.8-2.4)
[2021-09-15 07:48] LABS: PHOSPHOROUS 8.8 mg/dL (2.5-4.9); SGOT/AST 115 U/L (15-37); SGPT/ALT 29 U/L (13-61)
[2021-09-15 07:50] LABS: BILIRUBIN,TOTAL 3.8 mg/dL (0.2-1); TOT PROT 5.6 g/dl (6.4-8.2)
[2021-09-15 08:02] LABS: ALBUMIN 1.8 g/dl (3.4-5.0); ALK PHOS 133 U/L (45-117); ANION GAP 16 MMOL/L (8-16); CREATININE 7.8 mg/dL (0.55-1.3); SODIUM 135 mmol/L (136-145)
[2021-09-15] MEDS ORDERED: DEXTROSE 50%-WATER - 25 GM/50 ML VIAL IVPUSH ONE (08:14)
[2021-09-15] MEDS ORDERED: INSULIN REGULAR HUMAN 100 UNITS/ML *VIAL IVPUSH ONE (08:14)
[2021-09-15] MEDS ORDERED: CALCIUM CHLORIDE 10% 1 GM/10 ML *VIAL IVPB ONE (08:16)
[2021-09-15] MEDS ORDERED: DEXTROSE 50%-WATER 25 GM/50 ML DISP.SYRIN ONE (08:41)
[2021-09-15] MEDS ORDERED: CALCIUM GLUCONATE 10% - 1,000 MG/10 ML VIAL ONE (08:41)
[2021-09-15] MEDS ORDERED: PT OWN MED DRAWER 7, Y5N ONE (08:43)
[2021-09-15] MEDS: AMINO ACIDS/PROTEIN HYDROLYS 30 ML LIQUID.PKT PO SCH (08:51)
[2021-09-15] MEDS ORDERED: CALCIUM GLUCONATE 10% - 1,000 MG/10 ML VIAL IVPB ONE (09:00)
[2021-09-15] MEDS: COLLAGENASE CLOSTRIDIUM HIST. 30 GRAMS TUBE TP SCH (09:01)
[2021-09-15] MEDS: APIXABAN 2.5 MG TABLET NGT SCH ×2 (09:01→21:55)
[2021-09-15] MEDS: CEFAZOLIN 500 MG in DEXTROSE 5%-WATER - 50 ML IVPB SCH ×2 (09:01→21:55)
[2021-09-15] MEDS: PANTOPRAZOLE SODIUM 40 MG VIAL IVPUSH SCH (09:01)
[2021-09-15 09:22] LABS: ANISOCYTOSIS 2+; MACROCYTOSIS 2+; PLATELET ESTIMATE NORMAL; TARGET CELLS 1+; TEAR DROP CELLS 1+
[2021-09-15] MEDS ORDERED: SODIUM CHLORIDE 250 ML IV PRN (12:35)
[2021-09-15] MEDS: SODIUM ZIRCONIUM CYCLOSILICATE (LOKELMA) 5 GM PACKET PO SCH ×2 (12:36→21:55)
[2021-09-15] MEDS ORDERED: FUROSEMIDE 100 MG/10 ML INJECTABLE VIAL IVPB ONE (12:45)
[2021-09-15] MEDS: CHLORHEXIDINE GLUCONATE 4% CLEANSER FOR DECOLONIZATION TP SCH (21:54)
[2021-09-16] MEDS: METOPROLOL TARTRATE 5 MG/5 ML VIAL IVPUSH SCH ×4 (02:44→21:29)
[2021-09-16] MEDS: NOREPINEPHRINE BITARTRATE 16,000 MCG in SODIUM CHLORIDE 484 ML IV SCH (02:44)
[2021-09-16] MEDS: HYDROCORTISONE SOD SUCCINATE 100 MG/2 ML VIAL IVPB SCH ×3 (02:45→17:28)
[2021-09-16] MEDS ORDERED: PT OWN MED DRAWER 7, Y5N ONE ×3 (05:40→21:18)
[2021-09-16] MEDS: INSULIN SLIDING SCALE (NOVOLOG) 1 VIAL SQ SCH ×4 (06:01→21:34)
[2021-09-16 06:13] LABS: ARTERIAL BLD GAS O2 SATURATION 95.9 % (95-98); ARTERIAL BLOOD GAS BASE EXCESS -5.3 mmol/L (-2-2); ARTERIAL BLOOD GAS PO2 88.7 mmHg (80-100); ARTERIAL BLOOD GAS pH 7.294 (7.350-7.450)
[2021-09-16 06:15] LABS: VENT MODE V-A/C; VENT RATE 20
[2021-09-16] MEDS: ALBUMIN HUMAN 25% 12.5 GM/50 ML VIAL IVPB SCH ×4 (07:00→08:30)
[2021-09-16 09:45] LABS: HEMATOCRIT 40.5 % (35.4-49); HEMOGLOBIN 13.4 GM/dL (11.7-16.9); MCH 29.3 pg (25.7-33.7); MCHC 33.2 g/dl (32.0-35.9); MEAN CELL VOLUME 88.3 fl (80-96); MEAN PLT VOLUME 10.7 fl (7.5-11.1); PLATELET COUNT 258 10^3/uL (134-434); RBC 4.58 M/mm3 (4.00-5.60); RDW 15.6 % (11.9-15.9); WHITE BLOOD COUNT 23.2 K/mm3 (4.0-10.0)
[2021-09-16 09:53] LABS: CHLORIDE 92 mmol/L (98-107); SODIUM 132 mmol/L (136-145)
[2021-09-16] MEDS: PANTOPRAZOLE SODIUM 40 MG VIAL IVPUSH SCH (09:56)
[2021-09-16] MEDS: APIXABAN 2.5 MG TABLET NGT SCH ×2 (09:56→21:29)
[2021-09-16] MEDS: AMINO ACIDS/PROTEIN HYDROLYS 30 ML LIQUID.PKT PO SCH (09:56)
[2021-09-16 09:57] LABS: ALBUMIN 1.7 g/dl (3.4-5.0); ANION GAP 17 MMOL/L (8-16); CO2 23 mmol/L (21-32); GLUCOSE,RANDOM 330 mg/dL (74-106); MAGNESIUM 2.9 mg/dL (1.8-2.4)
[2021-09-16] MEDS: COLLAGENASE CLOSTRIDIUM HIST. 30 GRAMS TUBE TP SCH (09:57)
[2021-09-16 10:00] LABS: SGOT/AST 82 U/L (15-37); SGPT/ALT 28 U/L (13-61)
[2021-09-16 10:01] LABS: BILIRUBIN,TOTAL 2.2 mg/dL (0.2-1); TOT PROT 5.9 g/dl (6.4-8.2)
[2021-09-16 10:21] LABS: ALK PHOS 172 U/L (45-117); BLOOD UREA NITROGEN 136.6 mg/dL (7-18); CALCIUM 5.9 mg/dL (8.5-10.1); CREATININE 8.8 mg/dL (0.55-1.3)
[2021-09-16 10:22] LABS: PHOSPHOROUS 10.7 mg/dL (2.5-4.9)
[2021-09-16] MEDS: CEFAZOLIN 500 MG in DEXTROSE 5%-WATER - 50 ML IVPB SCH ×2 (10:33→21:29)
[2021-09-16 11:27] LABS: ANISOCYTOSIS 2+; MACROCYTOSIS 2+; PLATELET ESTIMATE NORMAL; TARGET CELLS 2+
[2021-09-16 13:25] VITALS: BMI 37.0
[2021-09-16] MEDS: CHLORHEXIDINE GLUCONATE 4% CLEANSER FOR DECOLONIZATION TP SCH (21:30)
[2021-09-17] MEDS: NOREPINEPHRINE BITARTRATE 16,000 MCG in SODIUM CHLORIDE 484 ML IV SCH (01:48)
[2021-09-17] MEDS: HYDROCORTISONE SOD SUCCINATE 100 MG/2 ML VIAL IVPB SCH ×2 (01:48→09:15)
[2021-09-17] MEDS: METOPROLOL TARTRATE 5 MG/5 ML VIAL IVPUSH SCH ×4 (06:15→21:16)
[2021-09-17] MEDS: INSULIN SLIDING SCALE (NOVOLOG) 1 VIAL SQ SCH ×4 (06:24→21:22)
[2021-09-17 07:17] LABS: HEMOGLOBIN 12.1 GM/dL (11.7-16.9); MCH 29.6 pg (25.7-33.7); MCHC 33.6 g/dl (32.0-35.9); MEAN PLT VOLUME 11.1 fl (7.5-11.1); PLATELET COUNT 195 10^3/uL (134-434); RBC 4.09 M/mm3 (4.00-5.60); RDW 15.2 % (11.9-15.9); WHITE BLOOD COUNT 22.5 K/mm3 (4.0-10.0)
[2021-09-17 07:32] LABS: CHLORIDE 94 mmol/L (98-107); SODIUM 134 mmol/L (136-145)
[2021-09-17 07:41] LABS: ALBUMIN 1.7 g/dl (3.4-5.0); ANION GAP 19 MMOL/L (8-16); CO2 21 mmol/L (21-32); GLUCOSE,RANDOM 392 mg/dL (74-106); MAGNESIUM 2.7 mg/dL (1.8-2.4)
[2021-09-17 07:44] LABS: SGOT/AST 76 U/L (15-37); SGPT/ALT 19 U/L (13-61)
[2021-09-17 07:45] LABS: BILIRUBIN,TOTAL 1.7 mg/dL (0.2-1); TOT PROT 5.4 g/dl (6.4-8.2)
[2021-09-17 07:46] LABS: ALK PHOS 193 U/L (45-117)
[2021-09-17 07:55] LABS: BLOOD UREA NITROGEN 128.5 mg/dL (7-18); CALCIUM 5.5 mg/dL (8.5-10.1); CREATININE 7.7 mg/dL (0.55-1.3)
[2021-09-17 08:20] LABS: PHOSPHOROUS 9.4 mg/dL (2.5-4.9)
[2021-09-17] MEDS: AMINO ACIDS/PROTEIN HYDROLYS 30 ML LIQUID.PKT PO SCH (08:28)
[2021-09-17] MEDS ORDERED: PT OWN MED DRAWER 7, Y5N ONE ×3 (08:41→21:19)
[2021-09-17] MEDS: COLLAGENASE CLOSTRIDIUM HIST. 30 GRAMS TUBE TP SCH (09:15)
[2021-09-17] MEDS: PANTOPRAZOLE SODIUM 40 MG VIAL IVPUSH SCH (09:15)
[2021-09-17] MEDS: APIXABAN 2.5 MG TABLET NGT SCH ×2 (11:00→21:21)
[2021-09-17] MEDS: CEFAZOLIN 500 MG in DEXTROSE 5%-WATER - 50 ML IVPB SCH ×2 (14:00→21:21)
[2021-09-17] MEDS ORDERED: CALCIUM GLUCONATE 10% - 1,000 MG/10 ML VIAL IVPB ONE (17:39)
[2021-09-17] MEDS: CHLORHEXIDINE GLUCONATE 4% CLEANSER FOR DECOLONIZATION TP SCH (21:21)
[2021-09-17] MEDS ORDERED: INSULIN (LEVEMIR) 100 UNITS/ML UNITS SQ SCH (22:00)
[2021-09-18] MEDS: NOREPINEPHRINE BITARTRATE 16,000 MCG in SODIUM CHLORIDE 484 ML IV SCH (03:54)
[2021-09-18] MEDS: METOPROLOL TARTRATE 5 MG/5 ML VIAL IVPUSH SCH ×3 (03:54→15:00)
[2021-09-18] MEDS: INSULIN SLIDING SCALE (NOVOLOG) 1 VIAL SQ SCH ×3 (06:02→18:56)
[2021-09-18 06:52] LABS: HEMATOCRIT 37.2 % (35.4-49); HEMOGLOBIN 11.9 GM/dL (11.7-16.9); MCH 29.3 pg (25.7-33.7); MCHC 32.1 g/dl (32.0-35.9); MEAN CELL VOLUME 91.4 fl (80-96); MEAN PLT VOLUME 11.2 fl (7.5-11.1); PLATELET COUNT 156 10^3/uL (134-434); RBC 4.07 M/mm3 (4.00-5.60); RDW 16.3 % (11.9-15.9); WHITE BLOOD COUNT 17.4 K/mm3 (4.0-10.0)
[2021-09-18 07:47] LABS: CHLORIDE 94 mmol/L (98-107); SODIUM 134 mmol/L (136-145)
[2021-09-18 07:54] LABS: ANION GAP 22 MMOL/L (8-16); CO2 18 mmol/L (21-32); GLUCOSE,RANDOM 299 mg/dL (74-106); MAGNESIUM 2.7 mg/dL (1.8-2.4)
[2021-09-18 08:13] LABS: CALCIUM 5.2 mg/dL (8.5-10.1); CREATININE 9.3 mg/dL (0.55-1.3)
[2021-09-18 08:24] LABS: BLOOD UREA NITROGEN 162.2 mg/dL (7-18); PHOSPHOROUS 10.6 mg/dL (2.5-4.9)
[2021-09-18] MEDS ORDERED: PT OWN MED DRAWER 7, Y5N ONE (09:34)
[2021-09-18] MEDS: APIXABAN 2.5 MG TABLET NGT SCH (10:15)
[2021-09-18] MEDS: PANTOPRAZOLE SODIUM 40 MG VIAL IVPUSH SCH (10:15)
[2021-09-18] MEDS: COLLAGENASE CLOSTRIDIUM HIST. 30 GRAMS TUBE TP SCH (10:16)
[2021-09-18] MEDS: AMINO ACIDS/PROTEIN HYDROLYS 30 ML LIQUID.PKT PO SCH (10:16)
[2021-09-18] MEDS: CEFAZOLIN 500 MG in DEXTROSE 5%-WATER - 50 ML IVPB SCH (10:16)
[2021-09-18 18:03] VITALS: BP 95/59; PULSE 93; TEMP 98.2
== END 2021-09-18 23:33 | disposition expired | DRG 466 ==
LOC: JER 20:57 → JICU 22:07
PROVIDERS: ADMIT Internal Medicine; ATTEND Internal Medicine
PROC: 5A1D70Z Performance of Urinary Filtration, Intermittent, Less than 6 Hours Per Day (ICD-10-PCS; 2021-09-12)
PROC: 05HN33Z Insertion of Infusion Device into Left Internal Jugular Vein, Percutaneous Approach (ICD-10-PCS; principal; 2021-09-13)
PROC: B544ZZA Ultrasonography of Left Jugular Veins, Guidance (ICD-10-PCS; 2021-09-13)
PROC: 5A1955Z Respiratory Ventilation, Greater than 96 Consecutive Hours (ICD-10-PCS; 2021-09-13)
PROC: 5A1D70Z Performance of Urinary Filtration, Intermittent, Less than 6 Hours Per Day (ICD-10-PCS; 2021-09-13)
PROC: 5A1D70Z Performance of Urinary Filtration, Intermittent, Less than 6 Hours Per Day (ICD-10-PCS; 2021-09-14)
PROC: 5A1D70Z Performance of Urinary Filtration, Intermittent, Less than 6 Hours Per Day (ICD-10-PCS; 2021-09-16)
DX: T82.7XXA Infection and inflammatory reaction due to other cardiac and vascular devices, implants and grafts, initial encounter (principal); A41.01 Sepsis due to Methicillin susceptible Staphylococcus aureus; I33.0 Acute and subacute infective endocarditis; I21.A1 Myocardial infarction type 2; R65.21 Severe sepsis with septic shock; J96.01 Acute respiratory failure with hypoxia; N17.0 Acute kidney failure with tubular necrosis; J69.0 Pneumonitis due to inhalation of food and vomit; I42.0 Dilated cardiomyopathy; I48.19 Other persistent atrial fibrillation; E87.2 Acidosis; E83.51 Hypocalcemia; M48.56XA Collapsed vertebra, not elsewhere classified, lumbar region, initial encounter for fracture; D75.1 Secondary polycythemia; B35.1 Tinea unguium; I50.22 Chronic systolic (congestive) heart failure; I13.0 Hypertensive heart and chronic kidney disease with heart failure and stage 1 through stage 4 chronic kidney disease, or unspecified chronic kidney disease; E11.22 Type 2 diabetes mellitus with diabetic chronic kidney disease; N18.30 Chronic kidney disease, stage 3 unspecified; L85.3 Xerosis cutis; E87.5 Hyperkalemia; F12.90 Cannabis use, unspecified, uncomplicated; K64.9 Unspecified hemorrhoids; E66.9 Obesity, unspecified; Z68.26 Body mass index [BMI] 26.0-26.9, adult; D72.829 Elevated white blood cell count, unspecified; D35.02 Benign neoplasm of left adrenal gland; K76.7 Hepatorenal syndrome; E11.52 Type 2 diabetes mellitus with diabetic peripheral angiopathy with gangrene; I96 Gangrene, not elsewhere classified; G93.41 Metabolic encephalopathy; E11.621 Type 2 diabetes mellitus with foot ulcer; E11.622 Type 2 diabetes mellitus with other skin ulcer; L97.528 Non-pressure chronic ulcer of other part of left foot with other specified severity; L97.818 Non-pressure chronic ulcer of other part of right lower leg with other specified severity; Y83.8 Other surgical procedures as the cause of abnormal reaction of the patient, or of later complication, without mention of misadventure at the time of the procedure; E11.69 Type 2 diabetes mellitus with other specified complication; M86.8X7 Other osteomyelitis, ankle and foot; Z79.4 Long term (current) use of insulin; Z95.2 Presence of prosthetic heart valve
CPT/HCPCS: 36415; 36430; 36511; 36600; 70450-TC; 71045-TC-FY; 71250-TC; 72125-TC; 74176-TC; 80048; 80053; 80307; 81003; 82271; 82550; 82553; 82803; 82962; 83605; 83735; 84100; 84484; 84550; 85025; 85027; 85379; 85384; 85610; 85730; 86705; 86707; 86803; 86850; 86900; 86901; 87040; 87186; 87324; 87340; 87350; 87389; 87449; 87517; 87522; 93005; 93010; 93306-TC; 94002; 99285-25; C9803; G0480; J0131; J0282; J1644; J3490; P9034; P9038; P9047; U0003; U0005